=== PATIENT | female | born 1945 | race African-American/Black ===

== ENCOUNTER 2018-06-30 14:18 | Inpatient (IN) | payer MEDICARE ==
[2018-06-30] MEDS ORDERED: Aspirin 325 MG TAB ONE (15:18)
[2018-06-30] MEDS ORDERED: Nitroglycerin 2% Ointment 1 INCH/1 GM Packet ONE (15:18)
[2018-06-30 16:02] LABS: CKMB 1.7 ng/mL (0-6.6)
--- NOTE | 2018-06-30 17:17 | ULT ---
RENAL SONOGRAM: 06/30/2018 HISTORY: Renal failure. COMPARISON: 06/12/2015 FINDINGS: The right kidney measures 10.1 cm x 4.6 cm, with the left kidney measuring 9.9 cm x 5.8 cm. There is a small, hypoechoic area seen within the inferior pole, left kidney, which is suggested to b e internal echogenic material. This has the appearance most suggestive of a small cyst. This measur es approximately 2.3 cm. No additional renal mass, renal calculus, or hydronephrosis is seen in the kidneys bilaterally. The urinary bladder is incompletely distended but is normal in appearance. There is a small amount of free fluid seen superior to the level of the urinary bladder. IMPRESSION: 1. Left renal cyst. 2. No evidence of hydronephrosis. POS: JUSTICE
[2018-06-30] MEDS ORDERED: Ondansetron ODT 4 MG TAB SL PRN (18:32)
[2018-06-30] MEDS ORDERED: Acetaminophen 325 MG TAB PO PRN (18:32)
[2018-06-30] MEDS ORDERED: Ondansetron PF 4 MG/2 ML Vial IVP PRN (18:32)
[2018-06-30 18:35] LABS: Troponin I 0.036 ng/mL (< 0.028)
--- NOTE | 2018-06-30 19:07 | HP ---
CHIEF COMPLAINT: Shortness of breath. HISTORY OF PRESENT ILLNESS: The patient is a 72-year-old female, who presented by EMS to [facility] for increased shortness of breath, which is going on for several days. Apparently, she had some cough and she has been treated with antibiotics recently, but there was no any improvement. She denied any nausea, vomiting, or diarrhea. She had a lot of wheezing according to her and there was a lot of dyspnea on exertion even with walking. She denies any fever or chills. PAST MEDICAL HISTORY: Positive for; 1. Diastolic congestive heart failure with ejection fraction of 60% according to the documentation from 2017. 2. Asthma. 3. Chronic obstructive pulmonary disease. 4. Chronic bronchitis. 5. Hypothyroidism. 6. Osteoarthritis. 7. History of myocardial infarction. 8. AICD. 9. Diabetes mellitus. 10. Gastrointestinal disease in form of peptic ulcer disease. 11. Hyperlipidemia. 12. Hypertension. PAST SURGICAL HISTORY: 1. Cholecystectomy. 2. Hysterectomy. PSYCHIATRIC HISTORY: Positive for schizophrenia. SOCIAL HISTORY: She dips. She quit smoking 3 months ago. She used to smoke 1 pack per day for long time. She denies any alcohol intake, but we know that she is a former drug user, abused marijuana. ALLERGIES: NONE. MEDICATIONS: Please refer to the medications list. REVIEW OF SYSTEMS: CONSTITUTIONAL: Negative for fever or chills. EYES: Negative for eye pain and eye discharge. ENT: Negative for epistaxis and rhinorrhea. CARDIOVASCULAR: Negative for chest pain and palpitation. RESPIRATORY: Positive for cough and shortness of breath. GI: Negative for nausea and vomiting. : Negative for hematuria and dysuria. MUSCULOSKELETAL: Negative for leg swelling and arthralgias. SKIN: Negative for rash or erythema. NEUROLOGIC: Negative for dizziness and headaches. HEMOLYMPHATIC: Negative for easy bruising and clotting abnormalities. Positive for schizophrenia symptoms in the past. PHYSICAL EXAMINATION: VITAL SIGNS: Blood pressure is 135/51, pulse is 49, respiratory rate is 22, pain zero, and O2 saturations 97%. She is on BiPAP at time of this visit. HEENT: Her head is atraumatic and normocephalic. Pupils are responding to light properly. Oral mucosa was not examined since she has a BiPAP mask on. LUNGS: Breath sounds diminished at both bases with bilateral crackles at the bases. HEART: S1 and S2. Bradycardic. No S3. No S4. ABDOMEN: Soft, nontender, mildly distended, and obese. Bowel sounds are present. No organomegaly. EXTREMITIES: No clubbing, cyanosis, or edema. Pulses diminished on both tibialis posterior and dorsalis pedis arteries similar bilaterally. NEUROLOGIC: She is alert and oriented x3. There is no any motor deficits. LABORATORY DATA: Labs showed WBC 7.8, hemoglobin 7.9, hematocrit 26.9, platelet count 170,000, and neutrophils 75.6. Chemistry normal. Electrolytes; BUN 39, creatinine 2.84, and glucose 133. Troponin 0.041 and BNP 1587. The rest of chemistry within normal limits. Chest x-ray showed congestive heart failure, decompensated. X-ray of the ribs showed nondisplaced right-sided rib fracture without any pneumothorax. IMPRESSION: 1. Congestive heart failure. 2. Hypothyroidism. 3. Asthma. 4. Chronic obstructive pulmonary disease. 5. Chronic bronchitis. 6. History of myocardial infarction. 7. Automatic implantable cardioverter-defibrillator. 8. Diabetes mellitus type 2. 9. Gastroesophageal reflux disease. 10. History of peptic ulcer disease. 11. Hyperlipidemia. 12. Hypertension. PLAN: Plan is admission to [facility]. The patient is guarded. Activity bedrest and bathroom privileges. IV Hep-Lock. Lasix 40 mg IV push every a 12 hours. The patient received 80 mg in [facility]. Continue BiPAP. Cardiology consultation with Dr. Rizvi. The case was discussed with him. Continue her nitroglycerin paste, since her blood pressure was running on the high side when she got to the ER. She received 4 mg of morphine and 325 mg of aspirin in the emergency room at [facility] and we will continue nitroglycerin paste and we will continue morphine p.r.n. and we will do DVT prophylaxis with SCDs and Lovenox and as I mentioned above, Cardiology is consulted. Job ID: [id number]
[2018-06-30 21:41] LABS: Troponin I 0.038 ng/mL (< 0.028)
[2018-06-30] MEDS: Nitroglycerin 2% Ointment 1 INCH/1 GM Packet TOP SCH (21:54)
[2018-07-01 05:40] LABS: Anisocytosis SLIGHT = 6-15 cells (100X) (0-5/hpf); Band 3 % (5-11); Elliptocytes SLIGHT = 2-5 cells (100X) (0-1/hpf); Eosinophils 1 % (0-10); Hemoglobin 7.8 g/dL (12.0-16.0); Hypochromia SLIGHT = 6-15 cells (100X) (0-5/hpf); Lymphocytes 17 % (21-51); MDiff Complete? YES; Mean Corpuscular HGB CONC 29.9 g/dL (32.0-36.0); Mean Corpuscular Hemoglobin 25.5 pg (27.0-31.0); Mean Corpuscular Volume 85.5 fL (78.0-98.0); Mean Platelet Volume 11.1 fL (7.4-10.4); Metamyelocyte 1 % (0-0); Monocytes 8 % (0-10); Neutrophil 70 % (42-75); Nucleated RBC 1 % (0); Platelet Count 182 thou/uL (130-400); RBC Distribution Width 16.7 % (11.5-14.5); Red Blood Cell (RBC) Count 3.07 mill/uL (4.20-5.40); Schistocytes SLIGHT = 2-5 cells (100X) (0-1/hpf); Tear Drops SLIGHT = 2-5 cells (100X) (0-1/hpf); White Blood Cell (WBC) Count 7.6 thou/uL (4.8-10.8)
[2018-07-01 05:43] LABS: Anion Gap 15 mmol/L (10-20); BUN (Urea Nitrogen) 44 mg/dL (9.8-20.1); Calc. Creatinine Clearance 24 mL/min (70-130); Calcium 8.9 mg/dL (7.8-10.44); Carbon Dioxide 25 mmol/L (23-31); Chloride 105 mmol/L (98-107); Estimated GFR-MDRD 15; Glucose 105 mg/dL (80-115); Potassium 4.5 mmol/L (3.5-5.1); Sodium 140 mmol/L (136-145)
[2018-07-01] MEDS ORDERED: Furosemide 40 MG/4 ML VIAL SLOW IVP SCH (06:00)
[2018-07-01] MEDS: Nitroglycerin 2% Ointment 1 INCH/1 GM Packet TOP SCH ×3 (06:16→21:48)
[2018-07-01] MEDS ORDERED: hydrOXYzine 25 MG TAB PO PRN (08:46)
[2018-07-01] MEDS ORDERED: Dicyclomine 20 MG TAB PO PRN (08:46)
[2018-07-01] MEDS ORDERED: Prevnar 13-Val Conj/PF 0.5 ML SYRINGE IM ONE (09:00)
[2018-07-01] MEDS ORDERED: HYDRALAZINE HCL 100 MG PO SCH (09:00)
[2018-07-01] MEDS ORDERED: Non-Formulary Item 1 EACH (Ferrous Sulfate [Ferrous Sulfate] 325 MG) PO SCH (09:00)
[2018-07-01] MEDS ORDERED: Non-Formulary Item 1 EACH (Insulin Glargine,Hum.Rec.Anlog [Lantus Solostar] 10 UNIT) SQ SCH (09:00)
[2018-07-01] MEDS ORDERED: Non-Formulary Item 1 EACH (Levothyroxine Sodium [Levothyroxine Sodium] 200 MCG) PO SCH (09:00)
[2018-07-01] MEDS ORDERED: Non-Formulary Item 1 EACH (Ranitidine Hcl [Ranitidine Hcl] 150 MG) PO SCH (09:00)
[2018-07-01] MEDS ORDERED: Gabapentin 300 MG CAP PO SCH (09:00)
[2018-07-01] MEDS: Ferrous Sulfate 325 MG TAB PO SCH ×2 (10:04→21:46)
[2018-07-01] MEDS: hydrALAZINE 25 MG TAB PO SCH ×3 (10:04→21:47)
[2018-07-01] MEDS: Famotidine 20 MG TAB PO SCH (10:05)
[2018-07-01] MEDS ORDERED: Sodium Chloride 0.9% 1,000 ML IV SCH (10:15)
[2018-07-01] MEDS: Insulin Glargine 10 UNITS in Pre-Filled Syringe 1 EACH SC SCH (10:16)
[2018-07-01] MEDS ORDERED: Albumin 25% 25 GM/100 ML BOT IVPB ONE (11:00)
[2018-07-01] MEDS ORDERED: predniSONE 5 MG TAB PO SCH (12:00)
--- NOTE | 2018-07-01 13:42 | CON ---
DATE OF CONSULTATION: 07/01/2018 CONSULTING PHYSICIAN: Jett Fleming M.D. REASON FOR CONSULT: Acute kidney injury. HISTORY OF PRESENT ILLNESS: This is a 72-year-old -[place] female with a history of congestive heart failure, COPD, bronchitis, type 2 diabetes, hypertension, hyperlipidemia, CKD, came to the hospital with above complaints and being admitted. The patient does have a creatinine of around 1.4 with last blood work done on 04/06/2018 and on admission was found to be 2.8, this morning 3.6, which required the Nephrology consult. The patient is feeling better with breathing trouble, but her complaint is that she cannot make any urine. She does not have any leg swelling. The patient said that was she was not having good p.o. intake for few days before admission. She did not have any water at home, was not drinking enough, but in admission, she was found to have fluid overload with a chest x-ray showing fluid overload and elevated BNP and she was given Lasix and currently was on Lasix, but despite the high dose of 40 mg IV, she was not making any urine. Nephrology is currently consulted. She remains hypoxic at the hospital. No nausea, vomiting, diarrhea. Reported no fever, chills. PAST MEDICAL HISTORY: Positive for CHF, asthma, COPD, chronic bronchitis, hypothyroidism, osteoarthritis, , type 2 diabetes, GERD, hyperlipidemia, hypertension. PAST SURGICAL HISTORY: 1. Cholecystectomy. 2. Hysterectomy. 3. AICD placement. HOME MEDICATIONS: Include: 1. Prednisone. 2. Metformin. 3. Hydroxyzine. 4. Hydralazine. 5. Terazosin. 6. Zoloft. 7. Ranitidine. 8. Pravastatin. 9. Lopressor. 10. Levothyroxine. 11. Sublingual nitrate. 12. Lantus. 13. Gabapentin. 14. Lasix. 15. Ferrous sulfate. 16. Bentyl. 17. Norvasc. ALLERGIES: NO KNOWN DRUG ALLERGIES. SOCIAL HISTORY: No smoking, alcohol, or illicit drug abuse. FAMILY HISTORY: No history of any kidney disease. REVIEW OF SYSTEMS: CONSTITUTIONAL: Negative for weight loss or gain, ability to conduct usual activities. SKIN: Negative for rash, itching. EYES: Negative for double vision, pain. ENT/MOUTH: Negative for nose bleeding, neck stiffness, pain, tenderness. CARDIOVASCULAR: Negative for palpitations, dyspnea on exertion, orthopnea. RESPIRATORY: Negative for shortness of breath, wheezing, cough, hemoptysis, fever or night sweats. GASTROINTESTINAL: Negative for poor appetite, abdominal pain, heartburn, nausea, vomiting, constipation, or diarrhea. GENITOURINARY: Negative for urgency, frequency, dysuria, nocturia. MUSCULOSKELETAL: Negative for pain, swelling. NEUROLOGIC/PSYCHIATRIC: Negative for anxiety, depression. ALLERGY/IMMUNOLOGIC: Negative for skin rash, bleeding tendency. PHYSICAL EXAMINATION: GENERAL: This is a obese female, in no apparent distress. VITAL SIGNS: Temperature 98.6, pulse 60, respirations 18, blood pressure 139/50. HEENT: Atraumatic and normocephalic. Oral mucosa is moist. NECK: Supple. CVS: S1 and S2 heard. Regular rate and rhythm. RESPIRATORY: Clear. GASTROINTESTINAL: Abdomen is soft. MUSCULOSKELETAL: 1+ edema. DERMATOLOGIC: No skin rash. NEUROLOGIC: Alert and awake. PSYCHIATRIC: Mood and affect normal. LABORATORY DATA: Hemoglobin is 7.8 with MCV of 85.5%, platelets 182. Potassium 4.5, BUN is 44, creatinine is 3.6, troponin is 0.4. BNP was 1500. IMAGING: Chest x-ray with fluid overload. ASSESSMENT AND PLAN: Acute kidney injury, on chronic kidney disease, stage 3, most likely from cardiorenal syndrome. Currently patient looks little bit volume depleted. We will check an echocardiogram to evaluate the right heart function to make sure she is not volume dependent. Plan is to start on IV fluids at 50 mL an hour for a liter today and we will also give a dose of albumin. Agree with cardiology evaluation. We will check echocardiogram. We will hold Lasix for anemia, seems to be chronic. We will rule out iron deficiency. Iron levels ordered. We will also consider Epogen, if not iron deficient. Edema, controlled. Hypertension, currently on the lower side. The patient remains high risk for complications and we will continue close monitoring. Medications reviewed. We will reduce the dose 1 p.o. at bedtime. Continue other medications. Renally dose all the medications and rule out sepsis and we will follow. Job ID: [id number]
--- NOTE | 2018-07-01 15:44 | PRG ---
DATE OF SERVICE: 07/01/2018 SUBJECTIVE: The patient says that she needs to go to the bathroom as I walked into the room, but according to the nurse, she did not make much urine overnight even after the dose of 80 mg of Lasix. OBJECTIVE: VITAL SIGNS: Blood pressure is 158/63, pulse is 67, respiratory rate is 22, and O2 saturation is 90. HEENT: Her head is atraumatic and normocephalic. Eyes are PERRLA. Sclerae are nonicteric. Oral mucosa is moist. NECK: JVD positive. LUNGS: Breath sounds significantly diminished at both bases with crackles bilaterally at both bases. No wheezing. HEART: S1, S2, somewhat irregular. No S3. No S4. ABDOMEN: Soft, nontender, obese. EXTREMITIES: No clubbing, cyanosis, or edema. NEUROLOGIC: She follows my commands. She moves her all 4 extremities. LABORATORY DATA: Labs showed white count of 7.6, hemoglobin 7.8, hematocrit 26.3, platelet count is 182,000. Chemistry; normal electrolytes, BUN 44, creatinine 3.67. Three sets of troponins; 0.049, 0.036 and 0.038. Glycemia is ranging from 108 to 139. Microbiology; none. Ultrasound of the kidneys showed left renal cyst, but no evidence of hydronephrosis. IMPRESSION: 1. Congestive heart failure, acute on chronic. 2. Hypothyroidism. 3. Respiratory failure secondary to #1 with hypoxemia. 4. History of asthma. 5. Chronic obstructive pulmonary disease. 6. Chronic bronchitis. 7. History of myocardial infarction. 8. Automatic implantable cardioverter-defibrillator in place. 9. Diabetes mellitus type 2. 10. Gastroesophageal reflux disease. 11. History of peptic ulcer disease. 12. Hyperlipidemia. 13. Hypertension. PLAN: The patient did not have much urine output even after 80 mg of Lasix IV push. She is on 40 of Lasix every 12 hours scheduled. Power Saw Operator wants to gently hydrate her and see whether her kidney function can get any better. Her creatinine jumped to over 3 overnight. Cardiology is consulted and Pulmonary/product development specialist is going to see her too. For now, we will continue her current regimen. Job ID: [id number]
[2018-07-01] MEDS ORDERED: Pravastatin Sodium 40 MG TAB PO SCH (21:00)
[2018-07-01] MEDS ORDERED: Non-Formulary Item 1 EACH (Terazosin Hcl [Terazosin Hcl] 2 MG) PO SCH (21:00)
[2018-07-01 21:08] LABS: Bilirubin Small (Negative); Blood, Urine Negative (Negative); Clarity CLOUDY (Clear); Glucose, Urine (Dipstick) Negative (Negative); Leukocyte Trace (Negative); Nitrite Negative (Negative); Protein, Urine (Dipstick) 100 mg/dL (Neg-Trace); Specific Gravity, Urine 1.018 (1.002-1.036)
[2018-07-01 21:09] LABS: Bacteria/HPF Rare-Few HPF (None Seen); Pathc Cast-AUWi Flag 1.08 (0-2.49); RBC/HPF 0-3 HPF (0-3)
[2018-07-01 21:10] LABS: Yeast-AUWi Flag 59.3 (0-25.0)
[2018-07-01 21:40] LABS: Troponin I 0.025 ng/mL (< 0.028)
[2018-07-01] MEDS: Gabapentin 300 MG CAP PO SCH (21:46)
[2018-07-01] MEDS: Terazosin HCl 1 MG CAP PO SCH (21:47)
[2018-07-01] MEDS: Atorvastatin Calcium 10 MG TAB PO SCH (21:47)
[2018-07-01] MEDS ORDERED: Ondansetron PF 4 MG/2 ML Vial IVP PRN (23:44)
--- NOTE | 2018-07-02 01:08 | CON ---
DATE OF CONSULTATION: HISTORY OF PRESENT ILLNESS: Neli Rothman is a 72-year-old Black female, that I have followed intermittently over the years. She was first seen in 08/1999. At that time, she presented to emergency room in [place], complaining of back discomfort. She was placed on various antiinflammatory muscle relaxing medications and pain improved. She also stated that she was short of breath, somewhat pleuritic chest pain. She also had a fall with possible syncope. She was then sent here and underwent a left heart catheterization. Ejection fraction of 60% to 65%. She had normal coronary arteries. I did not see her again until November 2007, when she was hospitalized with an episode of falling to the ground. It was unclear if she had true syncope. She denied any shortness of breath or chest discomfort. She had no arrhythmias while hospitalized. Apparently, an outpatient monitor by Dr. Larson revealed nonsustained supraventricular tachycardia at a rate of 138 per minute, lasting 6 beats. I revealed implantable loop recorder was placed during that admission. No significant arrhythmias, however, were ever seen on the device. She also underwent repeat catheterization during that admission in 2007. Coronary arteries were normal and ejection fraction of 60% to 65%. She has had several admissions for diastolic heart failure. She very rarely is ever seen in the office. She now is admitted with increased shortness of breath after going to the [place] [facility]. She has some cough but no fever. She denied any chest discomfort. PAST MEDICAL HISTORY: Hypertension, diabetes, hypothyroidism, anxiety, arthritis, hyperlipidemia, peptic ulcer disease, depression, diverticulosis, anemia, and bipolar disorder. CURRENT MEDICATIONS: 1. Prednisone 5 mg daily. 2. Amlodipine 10 mg daily. 3. Bentyl 20 mg q.i.d. p.r.n. 4. Ferrous sulfate 325 b.i.d. 5. Lasix 40 b.i.d. 6. Gabapentin 300 mg t.i.d. 7. Hydralazine 100 mg t.i.d. 8. . 9. Metformin 1000 mg b.i.d. 10. Metoprolol 25 mg b.i.d. 11. Pravastatin 40 at bedtime. 12. Ranitidine 150 b.i.d. 13. Zoloft 150 daily. 14. Terazosin 2 mg at bedtime. ALLERGIES: NONE. SOCIAL HISTORY: She smoked 1 pack per day, but stopped in 2016. She does not drink. FAMILY HISTORY: Negative for coronary artery disease. REVIEW OF SYSTEMS: Unremarkable except as noted above. PHYSICAL EXAMINATION: VITAL SIGNS: Blood pressure 144/42 and pulse of 57. HEENT: PERRL. NECK: Supple. CHEST: Reveals crackles at the bases. CARDIOVASCULAR: S1 and S2 normal without any S3, S4, or murmurs. ABDOMEN: Obese. Normal bowel sounds. No tenderness. EXTREMITIES: Revealed 1+ pretibial edema. NEUROLOGICAL: Grossly intact. SKIN: Warm and dry. LABORATORY DATA: Chest x-ray reveals cardiomegaly, increased pulmonary vascularity with findings suggesting decompensated congestive heart failure. EKG reveals sinus bradycardia with rate of 49 per minute, possible anterior infarct, and nonspecific T-wave changes. Hemoglobin 7.8, hematocrit 26.3, white count 7600, and platelets 182,000. Sodium of 140, potassium 4.5, chloride 105, carbon dioxide 25, BUN 44 , and creatinine is 3.67. Troponin I 0.049. IMPRESSION: 1. Acute on chronic diastolic heart failure. 2. Acute kidney injury on chronic kidney disease. 3. Former smoker. 4. Hypertension. 5. Diabetes. 6. Hypercholesterolemia. 7. Anxiety. 8. History of restrictive lung disease. 9. Bipolar affective disorder. PLAN: Ms. Rothman will be diuresed. She has had normal coronary arteries with catheterization in the past and normal left ventricular function on echos. Echocardiogram has been ordered but not performed yet. Job ID: [id number] MTDD
[2018-07-02 05:40] LABS: Iron 25 ug/dL (50-170); Iron Binding Capacity, Total 284 mcg/dL (265-497)
[2018-07-02 05:42] LABS: Calcium 8.8 mg/dL (7.8-10.44); Chloride 103 mmol/L (98-107); Potassium 4.6 mmol/L (3.5-5.1); Sodium 134 mmol/L (136-145)
[2018-07-02 05:51] LABS: BUN (Urea Nitrogen) 46 mg/dL (9.8-20.1); Calc. Creatinine Clearance 22 mL/min (70-130); Carbon Dioxide 17 mmol/L (23-31); Estimated GFR-MDRD 13; Glucose 171 mg/dL (80-115)
[2018-07-02 05:52] LABS: Anion Gap 19 mmol/L (10-20)
[2018-07-02] MEDS: Nitroglycerin 2% Ointment 1 INCH/1 GM Packet TOP SCH ×3 (06:25→22:24)
[2018-07-02] MEDS: Levothyroxine Sodium 100 MCG TAB PO SCH (06:25)
--- NOTE | 2018-07-02 08:59 | PRG ---
DATE OF SERVICE: 07/02/2018 SUBJECTIVE: The patient is seen and examined at the bedside. She finally started making some urine after she was given IV fluids yesterday per Nephrology. OBJECTIVE: VITAL SIGNS: Blood pressure is 160/50, pulse is 62, respiratory rate is 16, O2 saturation is 92%. HEENT: Her conjunctivae is palish. Oral mucosa is moist. NECK: Supple. LUNGS: Breath sounds diminished at both bases with dullness on percussion on both lower lobes. HEART: S1, S2. The patient is showing bigeminy since yesterday. ABDOMEN: Soft, nontender, nondistended. Bowel sounds are present. No organomegaly. EXTREMITIES: 1+ peripheral edema similar bilaterally on the lower extremities. NEUROLOGICAL: She is alert and oriented. She is able to move her all 4 extremities. There is no any motor deficits. LABORATORY DATA: Sodium of 134, potassium 4.6, chloride 103, CO2 17, BUN 46, creatinine 3.98, glycemia is ranging from 139-191. Iron 25, total iron-binding capacity 284, ferritin 44.24. Troponin I 0.025. IMPRESSION: 1. Congestive heart failure, [id number]. Apparently, she had normal ejection fraction according to the previous echos per Cardiology information. 2. [id number] renal failure. 3. Hypothyroidism. 4. Respiratory failure secondary to congestive heart failure with hypoxemia. 5. History of asthma. 6. Chronic obstructive pulmonary disease. 7. Chronic bronchitis. 8. History of myocardial infarction. 9. Automatic implantable cardioverter-defibrillator in place. 10. Diabetes mellitus type 2. 11. Gastroesophageal reflux disease. 12. History of peptic ulcer disease. 13. Hyperlipidemia. 14. Hypertension. DISCUSSION: 1. The patient received some IV fluids yesterday and albumins. Her urine output has improved. Finally, urology on board. Her Lasix was held. Bradycardia with bigeminies. Apparently pacemaker is not well functioning. Cardiology is aware and Dr. Quintanilla is going to address this issue this morning. 2. chronic disease likely related to her renal failure. 3. Diabetes. She is on 10 units of long-acting insulin plus sliding scale a.c. and at bedtime and her glycemia is ranging from 108-191 and we will going to keep her on the same regimen for now. 4. We will obtain CBC this morning, make sure that her hemoglobin does not drop any further, and we will check her CBC and BMP tomorrow morning. Job ID: [id number]
[2018-07-02] MEDS: Ferrous Sulfate 325 MG TAB PO SCH ×3 (09:36→19:34)
[2018-07-02] MEDS: Famotidine 20 MG TAB PO SCH ×2 (09:37→13:54)
[2018-07-02] MEDS: hydrALAZINE 25 MG TAB PO SCH ×5 (09:42→19:34)
[2018-07-02 10:39] LABS: Actual Bicarbonate (HCO3a) 25.4 mEq/L (22-28); Base Excess (BEa) -4.6 mEq/L (-2.0 to +3.0); Calcium, Ionized 1.19 mmol/L (1.12-1.30); Carboxyhemoglobin (COHb) 1.6 gm% (0.0-3.0); Hemoglobin (Hb) 8.7 g/dL (12.0-16.0)
[2018-07-02] MEDS ORDERED: Heparin 1,000 UNITS/ML VIAL ONE (11:11)
[2018-07-02 11:21] LABS: pH, Arterial 7.11 (7.35-7.45)
[2018-07-02 11:22] LABS: CO2 Tension 82.4 mmHg (35.0-45.0); O2 Tension (PaO2) 56.6 mmHg (> 70.0); Puncture Site RBA
[2018-07-02 11:27] LABS: #Lymphocytes 0.8 thou/uL (1.20-3.40); #Monocytes 0.6 thou/uL (0.11-0.59); #Neutrophils 6.5 thou/uL (1.40-6.50); %Eosinophils 0.3 % (0.0-10.0); %Lymphocytes 10.5 % (21.0-51.0); %Monocytes 7.3 % (0.0-10.0); %Neutrophils 81.9 % (42.0-75.0); Anisocytosis SLIGHT = 6-15 cells (100X) (0-5/hpf); Hypochromia SLIGHT = 6-15 cells (100X) (0-5/hpf); MDiff Complete? YES; Mean Corpuscular HGB CONC 29.4 g/dL (32.0-36.0); Mean Corpuscular Hemoglobin 25.5 pg (27.0-31.0); Mean Corpuscular Volume 86.5 fL (78.0-98.0); Mean Platelet Volume 9.5 fL (7.4-10.4); Ovalocytes SLIGHT = 2-5 cells (100X) (0-1/hpf); Platelet Count 181 thou/uL (130-400); Poikilocytosis MODERATE=16-30 cells (100X) (0-5/hpf); RBC Distribution Width 16.7 % (11.5-14.5); Red Blood Cell (RBC) Count 3.14 mill/uL (4.20-5.40); Tear Drops SLIGHT = 2-5 cells (100X) (0-1/hpf)
[2018-07-02] MEDS ORDERED: Bacteriostatic Water 30 ML VIAL FS PRN (11:36)
[2018-07-02] MEDS ORDERED: methylPREDNISolone Sod Succ 40 MG VIAL IVP SCH ×2 (12:00→23:00)
--- NOTE | 2018-07-02 12:00 | PRG ---
DATE OF SERVICE: 07/02/2018 SUBJECTIVE: The patient was seen and examined in ICU. The patient remains with altered mentation. Unable to give good history. OBJECTIVE: GENERAL: This is a well-built female with confusion. VITAL SIGNS: Temperature 97.7, pulse 54, respiratory rate 18, blood pressure 141/47. HEENT: Atraumatic, normocephalic, on BiPAP. CARDIOVASCULAR: S1, S2 heard. RESPIRATORY: Clear. GASTROINTESTINAL: Abdomen is soft. MUSCULOSKELETAL: 1+ edema. DERMATOLOGIC: No skin rash. NEUROLOGIC: Confused. LABORATORY DATA: Hemoglobin 7.8, potassium 4.6, BUN 46, creatinine 3.9. ASSESSMENT: 1. Acute kidney injury on chronic kidney disease stage 4 with worsening acidosis and altered mentation and uremia with oligoanuria. Plan is to start on dialysis. I did talk with the family and the family is agreeable. The patient is confused, not able to give the consent. We will consult Surgery for placement, and we will start on dialysis as tolerated. 2. Cardiorenal syndrome. Followup with Cardiology. Followup echocardiogram. 3. Edema. We will remove fluid with dialysis as tolerated. 4. Hypertension. 5. Altered mentation. 6. Respiratory acidosis. PROGNOSIS: Guarded. PLAN: Plan is to start dialysis if tolerated. The patient is agreeable. Consult Surgery for placement of a dialysis catheter. Job ID: [id number]
--- NOTE | 2018-07-02 12:05 | CON ---
DATE OF CONSULTATION: 07/02/2018 SERVICE: Pulmonary Medicine. REASON FOR CONSULTATION: Respiratory failure. HISTORY OF PRESENT ILLNESS: The patient is a 72-year-old female with past medical history significant for heart failure. She presented to the hospital with decreasing p.o. intake, nausea, and anuria. She had increasing shortness of breath as well. Overnight, she had significant decline in mentation. She previously denied any abdominal pain, vomiting, or diarrhea. She feels constipated actually. She has no hot, red, swollen joints or arthralgias. She has been having a cough and bringing up white phlegm. There has been nothing with color to it. She denies having any chest pains or palpitations. Otherwise, she simply could not breathe well. PAST MEDICAL HISTORY: 1. Chronic diastolic heart failure. 2. Asthma. 3. COPD. 4. Hypothyroidism. 5. Osteoarthritis. 6. Type 2 diabetes mellitus. 7. History of peptic ulcer disease. 8. Dyslipidemia. 9. Hypertension. PAST SURGICAL HISTORY: 1. Cholecystectomy. 2. Hysterectomy. FAMILY HISTORY: Noncontributory. SOCIAL HISTORY: She uses dip. She quit smoking roughly 3 months ago, but prior to that, had a greater than a [id number] history of smoking. Denies any alcohol or illicit drug use. She has no exposure to chemicals, dust, asbestos, or tuberculosis. ALLERGIES: NO KNOWN DRUG ALLERGIES. MEDICATIONS: List of her inpatient medications was reviewed. Multiple updates were made. REVIEW OF SYSTEMS: General, head, ears, eyes, nose, throat, cardiovascular, respiratory, GI, , musculoskeletal, neurologic, and skin are negative except as mentioned in the HPI. PHYSICAL EXAMINATION: VITAL SIGNS: Afebrile, pulse 57, blood pressure 141/47, respirations 19, and saturation 85% on 30% FiO2 and now PEEP of 8. GENERAL: She is somnolent. HEENT: Normocephalic and atraumatic. Sclerae white. Conjunctivae pink. Oral mucosa is moist without lesions. LUNGS: Crackles and prolonged expiratory phase with wheezing are both noted. There are some rhonchi present. HEART: Bradycardic, irregular. ABDOMEN: Soft, nontender, and nondistended. Bowel sounds are positive. MUSCULOSKELETAL: No cyanosis or clubbing. There is no pitting in the bilateral lower extremities. NEUROLOGIC: Grossly nonfocal. LABORATORY DATA: WBC 7.6, hemoglobin 7.8, platelets 181,000, neutrophil count is 70% on top of 3% bands. Creatinine 3.98, which is gently up-trending, glucose 171, and BUN 46. Iron is low, TIBC is normal. Percent saturation and ferritin are both low. Urinalysis is essentially unremarkable. IMAGING DATA: 1. Renal ultrasound demonstrates no evidence of hydronephrosis. Left renal cyst is incidentally discovered. 2. Chest x-ray demonstrates findings consistent with decompensated heart failure. There are significant volume overload, cephalization, and bilateral blunting of the costophrenic angles. ASSESSMENT: 1. Acute hypoxic and hypercapnic respiratory failure. 2. Chronic obstructive pulmonary disease with acute exacerbation. 3. Bradyarrhythmia. 4. Acute kidney injury. DISCUSSION AND PLAN: We will continue some nebulized medications and steroids. I do believe that most of this is a heart related issue. We will put her on BiPAP. I stood at bedside and escalated the pressures, so that we could maintain good ventilation. We will have Cardiology swing back around and see whether or not this bradyarrhythmia is likely contributing to her low cardiac output state and lack of ability for us to get fluid off her. Pulmonary/Critical Care will continue to follow along. Critical care time: 30 minutes. Job ID: [id number] MTDDillon
[2018-07-02] MEDS: Insulin Glargine 10 UNITS in Pre-Filled Syringe 1 EACH SC SCH (13:55)
--- NOTE | 2018-07-02 14:59 | EKG ---
Test Reason : STAT Blood Pressure : / mmHG Vent. Rate : 056 BPM Atrial Rate : 056 BPM P-R Int : 146 ms QRS Dur : 080 ms QT Int : 472 ms P-R-T Axes : 034 017 096 degrees QTc Int : 455 ms Sinus bradycardia Possible Anterior infarct (cited on or before 08-JUN-2015) Abnormal ECG Confirmed by NINFA CABAN ([id number]) on 07/02/2018 2:59:07 PM Referred By: KAT Confirmed By:NINFA CABAN
[2018-07-02 15:11] LABS: HBSAg Index 0.21 S/CO (0-0.99); Hep B Surf Ag Non-Reactive S/CO (NonReactive)
[2018-07-02] MEDS ORDERED: Albumin 25% 25 GM/100 ML BOT IVPB SCH (15:15)
[2018-07-02] MEDS ORDERED: Midazolam HCl 2 mg/2 ml Vial ONE (15:20)
[2018-07-02 15:22] LABS: HBSAB Concentration 115.63 mIU/mL; Hep B Surf AB Reactive (NonReactive)
[2018-07-02] MEDS ORDERED: Propofol 1,000 MG/100 ML VIAL IV ONE (15:34)
[2018-07-02] MEDS ORDERED: Lorazepam 2 MG/ML VIAL ONE (16:43)
[2018-07-02] MEDS: cefTRIAXone\\ROCEPHIN 1 GM in Sodium Chloride 0.9% 100 ML IVPB SCH (17:13)
[2018-07-02 17:19] LABS: Actual Bicarbonate (HCO3a) 27.8 mEq/L (22-28); Base Excess (BEa) 0.8 mEq/L (-2.0 to +3.0); CO2 Tension 58.1 mmHg (35.0-45.0); Calcium, Ionized 1.13 mmol/L (1.12-1.30); Carboxyhemoglobin (COHb) 1.2 gm% (0.0-3.0); Hemoglobin (Hb) 8.5 g/dL (12.0-16.0); Potassium - ABG Lab 3.79 mmol/L (3.70-5.30)
[2018-07-02 17:20] LABS: ALV-art Gradient 303.675 (0-20); O2 Tension (PaO2) 51.5 mmHg (> 70.0)
[2018-07-02 17:21] LABS: Puncture Site RRA
[2018-07-02 17:24] LABS: Base Excess (BEa) -1.7 mEq/L (-2.0 to +3.0); Calcium, Ionized 1.19 mmol/L (1.12-1.30); Carboxyhemoglobin (COHb) 1.2 gm% (0.0-3.0); Hemoglobin (Hb) 8.8 g/dL (12.0-16.0); Potassium - ABG Lab 3.75 mmol/L (3.70-5.30)
[2018-07-02 17:25] LABS: CO2 Tension 82.5 mmHg (35.0-45.0); O2 Tension (PaO2) 59.6 mmHg (> 70.0); pH, Arterial 7.15 (7.35-7.45)
[2018-07-02 17:26] LABS: ALV-art Gradient 550.275 (0-20); Puncture Site RRA
--- NOTE | 2018-07-02 17:43 | OP ---
DATE OF PROCEDURE: 07/02/2018 PREOPERATIVE DIAGNOSES: 1. Acute renal failure. 2. Acute congestive heart failure secondary to hypovolemia. POSTOPERATIVE DIAGNOSES: 1. Acute renal failure. 2. Acute congestive heart failure secondary to hypovolemia. PROCEDURE PERFORMED: Placement of right femoral venous Trialysis catheter for dialysis. INDICATION FOR PROCEDURE: A 72-year-old woman, admitted with acute renal failure and this was complicated by acute congestive heart failure. I have been asked to place a temporary dialysis access for emergent dialysis. DESCRIPTION OF PROCEDURE: Informed consent obtained from the patient's family presented. The patient was placed in supine position. Right groin sterilely prepped and draped in usual fashion. The right femoral artery was palpated. Skin medial to this was anesthetized with 1% lidocaine. The right femoral vein was then cannulated with an 18-gauge introducer needle returning dark venous blood. Guidewire was passed through the needle and advanced into the right femoral vein without resistance. The needle was withdrawn over the guidewire. A stab incision was made adjacent to the guidewire using 11 scalpel. Dilator was passed over the guidewire and dilating the subcutaneous tissues. The dilator was removed and a triple-lumen Trialysis catheter was then advanced over the guidewire and placed in the right femoral vein without resistance down to hop. The guidewire was removed. Dark venous blood was aspirated from all three ports, which were individually flushed with saline followed by heparin. The catheter was secured to anterior groin using 3-0 nylon suture at two points. Sterile dressing was then applied. The patient tolerated this procedure without any apparent complications and remains in critical, but stable condition. Job ID: [id number]
[2018-07-02] MEDS ORDERED: Amlodipine 5 MG TAB PO SCH (18:30)
[2018-07-02] MEDS: niCARdipine HCl 25 MG in Sodium Chloride 0.9% 250 ML 240 ML IVPB SCH ×2 (18:45→20:57)
[2018-07-02] MEDS ORDERED: Lorazepam 2 MG/ML VIAL SLOW IVP PRN (18:55)
[2018-07-02] MEDS ORDERED: fentaNYL Citrate/PF 2,000 MCG in Sodium Chloride 0.9% 60 ML IV SCH (18:55)
[2018-07-02] MEDS ORDERED: Propofol BOLUS 1,000 MG/100 ML VIAL IV PRN (18:55)
[2018-07-02] MEDS ORDERED: Fentanyl BOLUS 250 ML IVPB PRN (18:55)
[2018-07-02] MEDS ORDERED: DISCONTINUE PREVIOUS NARCOTIC PAIN MEDICATIONS AND BENZODIAZEPINES FS SCH (18:55)
[2018-07-02] MEDS: Morphine 2 MG/ML SYRINGE SLOW IVP PRN (19:33)
[2018-07-02] MEDS: Gabapentin 300 MG CAP PO SCH (19:34)
[2018-07-02] MEDS: Propofol 1,000 MG/100 ML VIAL IV PRN (19:51)
[2018-07-02] MEDS: Terazosin HCl 1 MG CAP PO SCH (19:53)
[2018-07-02] MEDS: Atorvastatin Calcium 10 MG TAB PO SCH (19:54)
[2018-07-02] MEDS: Amlodipine 5 MG TAB PO SCH (19:54)
[2018-07-02] MEDS ORDERED: niCARdipine HCl 50 MG in Sodium Chloride 0.9% 250 ML 250 ML IVPB SCH (21:45)
[2018-07-02] MEDS ORDERED: niCARdipine HCl 50 MG in Sodium Chloride 0.9% 250 ML 230 ML IVPB SCH (21:45)
[2018-07-02] MEDS ORDERED: Carvedilol 6.25 MG TAB PER TUBE SCH (22:00)
[2018-07-02] MEDS: hydrALAZINE 20 MG/ML VIAL SLOW IVP PRN (22:24)
[2018-07-03] MEDS ORDERED: Acetaminophen 650 MG/20.3 ML UDCUP PO PRN (00:47)
[2018-07-03] MEDS ORDERED: Dextrose 5% in Water 1,000 ML IV PRN (00:51)
[2018-07-03] MEDS ORDERED: Insulin Regular 300 UNITS/3 ML VIAL SC PRN (00:51)
[2018-07-03] MEDS ORDERED: Dextrose 50% Abboject 50 ML SYRINGE IVP PRN (00:51)
[2018-07-03] MEDS ORDERED: Vancomycin HCl 1 GM in Premix Bag 1 BAG IVPB SCH (01:00)
[2018-07-03] MEDS: Piperacillin/Tazobactam 2.25 GM in Sodium Chloride 0.9% 100 ML IVPB SCH ×3 (02:11→18:33)
[2018-07-03] MEDS: hydrALAZINE 20 MG/ML VIAL SLOW IVP PRN ×2 (02:13→06:24)
[2018-07-03] MEDS: Morphine 2 MG/ML SYRINGE SLOW IVP PRN (02:17)
[2018-07-03 05:53] LABS: #Lymphocytes 0.4 thou/uL (1.20-3.40); #Monocytes 0.3 thou/uL (0.11-0.59); %Basophils 0.2 % (0.0-1.0); %Eosinophils 0.1 % (0.0-10.0); %Lymphocytes 3.7 % (21.0-51.0); %Monocytes 3.1 % (0.0-10.0); %Neutrophils 92.9 % (42.0-75.0); Mean Corpuscular HGB CONC 29.6 g/dL (32.0-36.0); Mean Corpuscular Hemoglobin 25.7 pg (27.0-31.0); Mean Corpuscular Volume 86.6 fL (78.0-98.0); Mean Platelet Volume 10.5 fL (7.4-10.4); Platelet Count 142 thou/uL (130-400); RBC Distribution Width 16.7 % (11.5-14.5); Red Blood Cell (RBC) Count 2.73 mill/uL (4.20-5.40); White Blood Cell (WBC) Count 10.8 thou/uL (4.8-10.8)
[2018-07-03 06:14] LABS: Anion Gap 13 mmol/L (10-20); BUN (Urea Nitrogen) 35 mg/dL (9.8-20.1); Calc. Creatinine Clearance 28 mL/min (70-130); Calcium 8.5 mg/dL (7.8-10.44); Carbon Dioxide 23 mmol/L (23-31); Chloride 103 mmol/L (98-107); Estimated GFR-MDRD 17; Glucose 138 mg/dL (80-115); Sodium 135 mmol/L (136-145)
[2018-07-03] MEDS: Levothyroxine Sodium 100 MCG TAB PO SCH (06:22)
[2018-07-03] MEDS: Nitroglycerin 2% Ointment 1 INCH/1 GM Packet TOP SCH ×3 (06:22→21:11)
[2018-07-03 07:02] LABS: Actual Bicarbonate (HCO3a) 24.7 mEq/L (22-28); Base Excess (BEa) 2.4 mEq/L (-2.0 to +3.0); CO2 Tension 28.7 mmHg (35.0-45.0); Calcium, Ionized 1.08 mmol/L (1.12-1.30); Carboxyhemoglobin (COHb) 1.3 gm% (0.0-3.0); Hemoglobin (Hb) 7.9 g/dL (12.0-16.0)
[2018-07-03 07:03] LABS: ALV-art Gradient 263.525 (0-20); O2 Tension (PaO2) 57.1 mmHg (> 70.0); Puncture Site RRA; pH, Arterial 7.55 (7.35-7.45)
--- NOTE | 2018-07-03 08:51 | PDOC.CTH ---
Cardiology Progress Note - Subjective intubated - Objective Vital Signs Temp Pulse Resp BP Pulse Ox 07/03/18 06:41 56 L 152/56 H 07/03/18 06:24 56 L 167/65 H 07/03/18 06:00 20 07/03/18 04:00 99.5 F 20 07/03/18 02:13 61 166/56 H 07/03/18 02:00 20 07/03/18 00:00 101.0 F H 20 07/02/18 23:22 63 20 100 07/02/18 22:25 162/46 H 07/02/18 22:24 68 162/46 H 07/02/18 22:00 20 Admit Weight 108 lb 4.8 oz Weight 238 lb 1.588 oz 07/02/18 07/03/18 07/04/18 06:59 06:59 07:59 Intake Total 1994 1523 Output Total 200 0 Balance 1795 1523 - Physical Examination General/Neuro: NAD Neck: no JVD present Lungs: unlabored respirations Heart: RRR Abdomen: no HSM, NT/ND Extremities: + femoral B - Labs Result Diagrams: 07/03/18 05:08 07/03/18 05:08 Troponin/CKMB CK-MB (CK-2) 1.7 ng/mL (0-6.6) 06/30/18 15:08 Troponin I 0.025 ng/mL (< 0.028) 07/01/18 20:57 - Assessment/Plan Acute on chronic diastolic heart failure anemia ESRD DM Restrictive lung disease Anxiety Initial plan prior to dialysis was diuresis fordiastolic dysfunction; given recent events, will need to be dialysed for removal of fluids On coreg, norvasc No other recommendations Will follow from a distance. Please call with questions
[2018-07-03] MEDS: Amlodipine 5 MG TAB PO SCH ×2 (09:03→21:11)
[2018-07-03] MEDS: hydrALAZINE 25 MG TAB PO SCH ×3 (09:04→21:12)
[2018-07-03] MEDS: Ferrous Sulfate 325 MG TAB PO SCH ×2 (09:04→21:12)
[2018-07-03] MEDS: Insulin Glargine 10 UNITS in Pre-Filled Syringe 1 EACH SC SCH (09:05)
[2018-07-03] MEDS: Famotidine 20 MG TAB PO SCH (09:05)
--- NOTE | 2018-07-03 09:07 | RAD ---
SINGLE VIEW OF THE CHEST: COMPARISON: 06/07/2016. HISTORY: Ventilated patient with respiratory failure. FINDINGS: A single view of the chest shows a normal-size cardiomediastinal silhouette. A cardiac monitoring de vice projects over the chest wall. An endotracheal tube is seen with its tip between the clavicles. There are bilateral veil-like opacities which likely represent small bilateral pleural effusions. IMPRESSION: Bilateral pleural effusions POS: [facility]
[2018-07-03] MEDS: Carvedilol 6.25 MG TAB PER TUBE SCH ×2 (09:09→21:12)
--- NOTE | 2018-07-03 09:42 | PRG ---
DATE OF SERVICE: 07/03/2018 SUBJECTIVE: The patient was seen and examined in the ICU. Remains intubated. OBJECTIVE: GENERAL: This is an obese female seen in the ICU intubated. VITAL SIGNS: Temperature 99.5, pulse 56, respiratory rate 20, blood pressure 144/49. HEENT: Intubated. CVS: S1 and S2 heard. RESPIRATORY: Clear. GI: Abdomen is soft. MUSCULOSKELETAL: 1+ edema. DERMATOLOGIC: No skin rash. NEUROLOGIC: Intubated. LABORATORY DATA: Potassium is 4.0, BUN is 35, creatinine is 3.1. ASSESSMENT AND PLAN: 1. Acute kidney injury on chronic kidney disease stage 4. Renal function with improvement with dialysis yesterday. The patient remains fluid overloaded. Plan is to have ultrafiltration earlier today as tolerated. 2. Cardiorenal syndrome. 3. Edema. Remove fluid. 4. Hypertension, stable on Cardene drip. 5. Altered mentation, currently intubated. 6. Acute hypoxic respiratory failure. 7. Respiratory acidosis, per primary team and ICU team. 8. We will continue to follow. Job ID: [id number]
--- NOTE | 2018-07-03 09:54 | PRG ---
DATE OF SERVICE: 07/03/2018 SUBJECTIVE: Neli Rothman is a morbidly obese female, intubated on the vent, sedated. Opens her eyes. X-ray shows bilateral pleural effusion. OBJECTIVE: VITAL SIGNS: Blood pressure 134/45, pulse 56, respiratory rate 18, and sats 99%. GENERAL: She is going to be dialyzed today. CHEST: Bilateral rhonchi. CARDIAC: Normal S1 and S2. No gallops. ABDOMEN: No masses. LABORATORY DATA: White count 10,000, H and H of 7 and 23, and platelet count 42. PO2 is 57, pCO2 20, pH 7.75, creatinine 3.1. IMPRESSION: 1. Respiratory failure. 2. Morbid obesity. 3. Congestive heart failure. 4. Probably sleep apnea. PLAN: She is not weanable at this stage. We will continue PT, nutrition. Wean when stable. One-half hour of critical care time. Job ID: [id number]
[2018-07-03] MEDS: methylPREDNISolone Sod Succ 40 MG VIAL IVP SCH (10:34)
[2018-07-03] MEDS ORDERED: Heparin 1,000 UNITS/ML VIAL ONE (11:11)
--- NOTE | 2018-07-03 12:17 | PDOC.PN ---
- Subjective Encounter Start Date: 07/03/18 Encounter Start Time: 12:15 Subjective: Still intubated - Objective Resuscitation Status - Order Detail: 06/30/18 15:49 Resuscitation Status Routine Resuscitation Status: FULL: Full Resuscitation Vital Signs & Weight: Vital Signs (12 hours) Temp Pulse Resp BP 07/03/18 10:45 56 L 166/90 H 07/03/18 09:09 135/45 L 07/03/18 09:04 56 L 132/45 L 07/03/18 09:03 56 L 132/45 L 07/03/18 06:41 56 L 152/56 H 07/03/18 06:24 56 L 167/65 H 07/03/18 06:00 20 07/03/18 04:00 99.5 F 20 07/03/18 02:13 61 166/56 H 07/03/18 02:00 20 Weight Admit Weight 108 lb 4.8 oz Weight 238 lb 1.588 oz Most Recent Monitor Data Heart Rate from ECG 57 NIBP 144/49 NIBP BP-Mean 80 Respiration from ECG 20 SpO2 100 I&O: 07/02/18 07/03/18 07/04/18 06:59 06:59 07:59 Intake Total 1994 1523 Output Total 200 0 Balance 1795 1523 Result Diagrams: 07/03/18 05:08 07/03/18 05:08 Additional Labs: Accuchecks 07/03/18 07/02/18 10:38 23:17 POC Glucose 130 H 149 H Phys Exam - Physical Examination ET tube in place HEENT: oral pharynx no lesions Neck: no nodes Vented sounds Cardiovascular: RRR, no significant murmur Gastrointestinal: non-tender, positive bowel sounds Musculoskeletal: pulses present Dx/Plan (1) ANDREA (acute kidney injury) Code(s): N17.9 - ACUTE KIDNEY FAILURE, UNSPECIFIED Status: Acute (2) CKD (chronic kidney disease) stage 4, GFR 15-29 ml/min Code(s): N18.4 - CHRONIC KIDNEY DISEASE, STAGE 4 (SEVERE) Status: Acute (3) Respiratory failure Code(s): J96.90 - RESPIRATORY FAILURE, UNSP, UNSP W HYPOXIA OR HYPERCAPNIA Status: Acute (4) DM type 2 (diabetes mellitus, type 2) Status: Chronic (5) HTN (hypertension) Code(s): I10 - ESSENTIAL (PRIMARY) HYPERTENSION Status: Chronic (6) Morbid obesity Code(s): E66.01 - MORBID (SEVERE) OBESITY DUE TO EXCESS CALORIES Status: Chronic - Plan respiratory therapy Not weanable at this time -: Dialysis per renal * .
[2018-07-03] MEDS: cefTRIAXone\\ROCEPHIN 1 GM in Sodium Chloride 0.9% 100 ML IVPB SCH (16:53)
[2018-07-03] MEDS: Propofol 1,000 MG/100 ML VIAL IV PRN (17:03)
[2018-07-03 20:15] VITALS: BMI 38.4
--- NOTE | 2018-07-03 20:33 | EKG ---
Test Reason : RESP DISTRESS Blood Pressure : / mmHG Vent. Rate : 049 BPM Atrial Rate : 049 BPM P-R Int : 146 ms QRS Dur : 082 ms QT Int : 510 ms P-R-T Axes : 056 004 113 degrees QTc Int : 460 ms Sinus bradycardia Cannot rule out Anterior infarct , age undetermined T wave abnormality, consider lateral ischemia Abnormal ECG Confirmed by SONAL LI, KEVEN ([id number]), rewrite editor CAMERON GONZALEZ ([id number]) on 07/03/2018 8:33:21 PM Referred By: DR PRUITT Confirmed By:KEVEN PRUITT MD
[2018-07-03] MEDS: Gabapentin 300 MG CAP PO SCH (21:11)
[2018-07-03] MEDS: Terazosin HCl 1 MG CAP PO SCH (21:12)
[2018-07-03] MEDS: Atorvastatin Calcium 10 MG TAB PO SCH (21:13)
[2018-07-04] MEDS: Propofol 1,000 MG/100 ML VIAL IV PRN (01:00)
[2018-07-04] MEDS: Piperacillin/Tazobactam 2.25 GM in Sodium Chloride 0.9% 100 ML IVPB SCH ×3 (01:00→17:33)
[2018-07-04] MEDS: Levothyroxine Sodium 100 MCG TAB PO SCH (05:06)
[2018-07-04] MEDS: Nitroglycerin 2% Ointment 1 INCH/1 GM Packet TOP SCH ×3 (05:07→20:52)
[2018-07-04 05:53] LABS: Chloride 101 mmol/L (98-107); Potassium 4.1 mmol/L (3.5-5.1); Sodium 135 mmol/L (136-145)
[2018-07-04 05:54] LABS: Anion Gap 14 mmol/L (10-20); BUN (Urea Nitrogen) 45 mg/dL (9.8-20.1); Calc. Creatinine Clearance 26 mL/min (70-130); Calcium 8.7 mg/dL (7.8-10.44); Carbon Dioxide 24 mmol/L (23-31); Estimated GFR-MDRD 16; Glucose 150 mg/dL (80-115)
[2018-07-04] MEDS: hydrALAZINE 20 MG/ML VIAL SLOW IVP PRN (06:19)
[2018-07-04] MEDS: Insulin Regular 300 UNITS/3 ML VIAL SC PRN ×2 (06:23→10:07)
[2018-07-04 07:37] LABS: Actual Bicarbonate (HCO3a) 25.2 mEq/L (22-28); Base Excess (BEa) -0.3 mEq/L (-2.0 to +3.0); CO2 Tension 45.4 mmHg (35.0-45.0); Calcium, Ionized 1.14 mmol/L (1.12-1.30); Carboxyhemoglobin (COHb) 0.9 gm% (0.0-3.0); Hemoglobin (Hb) 8.4 g/dL (12.0-16.0); O2 Tension (PaO2) 74.4 mmHg (> 70.0); Potassium - ABG Lab 4.29 mmol/L (3.70-5.30); pH, Arterial 7.36 (7.35-7.45)
[2018-07-04 07:38] LABS: Puncture Site RRA
[2018-07-04] MEDS: methylPREDNISolone Sod Succ 40 MG VIAL IVP SCH (08:22)
[2018-07-04] MEDS: Amlodipine 5 MG TAB PO SCH ×2 (08:22→20:49)
[2018-07-04] MEDS: Insulin Glargine 10 UNITS in Pre-Filled Syringe 1 EACH SC SCH (08:22)
[2018-07-04] MEDS: hydrALAZINE 25 MG TAB PO SCH ×3 (08:23→20:48)
[2018-07-04] MEDS: Ferrous Sulfate 325 MG TAB PO SCH ×2 (08:23→20:54)
[2018-07-04] MEDS: Carvedilol 6.25 MG TAB PER TUBE SCH ×2 (08:24→20:50)
[2018-07-04] MEDS: Famotidine 20 MG TAB PO SCH (08:24)
--- NOTE | 2018-07-04 09:42 | RAD ---
SINGLE VIEW OF THE CHEST: COMPARISON: 07/03/2018. HISTORY: Ventilated patient with respiratory failure. FINDINGS: A single view of the chest shows an enlarged but stable cardiomediastinal silhouette. A cardiac rebecca toring device projects over the chest wall. The endotracheal tube and NG tube re unchanged in positi on. There are bilateral veil-like opacities which likely represent layering pleural effusions. IMPRESSION: Stable exam. POS: [facility]
--- NOTE | 2018-07-04 10:13 | PDOC.PN ---
- Subjective Encounter Start Date: 07/04/18 Encounter Start Time: 10:12 Patient seen and examined in ICU Remains intubated. No overnight events - Objective Resuscitation Status - Order Detail: 06/30/18 15:49 Resuscitation Status Routine Resuscitation Status: FULL: Full Resuscitation MAR Reviewed: Yes Vital Signs & Weight: Vital Signs (12 hours) Temp Pulse Resp BP Pulse Ox 07/04/18 10:00 10 L 07/04/18 08:24 177/74 H 07/04/18 08:23 62 177/74 H 07/04/18 08:22 61 177/74 H 07/04/18 08:00 16 07/04/18 07:35 100 07/04/18 07:10 53 L 163/65 H 07/04/18 07:00 97.7 F 07/04/18 06:19 52 L 164/69 H 07/04/18 06:00 13 07/04/18 04:00 98.6 F 11 L 07/04/18 03:00 11 L 07/04/18 00:00 97.8 F 14 07/03/18 23:22 51 L 11 L 100 07/03/18 22:00 11 L Weight Admit Weight 230 lb 3.2 oz Weight 238 lb 1.588 oz Most Recent Monitor Data Heart Rate from ECG 64 NIBP 176/72 NIBP BP-Mean 106 Respiration from ECG 25 SpO2 91 I&O: 07/03/18 07/04/18 07/05/18 05:59 06:59 06:59 Intake Total 120 Output Total 0 Balance 120 Result Diagrams: 07/03/18 05:08 07/04/18 04:01 Additional Labs: Accuchecks 07/03/18 07/03/18 07/03/18 22:55 19:06 10:38 POC Glucose 165 H 159 H 130 H Phys Exam - Physical Examination Constitutional: NAD HEENT: sclera anicteric intubated Respiratory: no wheezing, no rales Cardiovascular: no significant murmur Gastrointestinal: soft Musculoskeletal: edema present Neurological: non-focal intubated but responsive and alert Skin: no rash Dx/Plan (1) Acute respiratory failure with hypoxia Code(s): J96.01 - ACUTE RESPIRATORY FAILURE WITH HYPOXIA Status: Acute (2) ANDREA (acute kidney injury) Code(s): N17.9 - ACUTE KIDNEY FAILURE, UNSPECIFIED Status: Acute (3) CKD (chronic kidney disease) stage 4, GFR 15-29 ml/min Code(s): N18.4 - CHRONIC KIDNEY DISEASE, STAGE 4 (SEVERE) Status: Acute (4) Acute on chronic diastolic heart failure Code(s): I50.33 - ACUTE ON CHRONIC DIASTOLIC (CONGESTIVE) HEART FAILURE Status : Acute (5) DM type 2 (diabetes mellitus, type 2) Status: Chronic (6) Morbid obesity Code(s): E66.01 - MORBID (SEVERE) OBESITY DUE TO EXCESS CALORIES Status: Chronic (7) MARI (obstructive sleep apnea) Code(s): G47.33 - OBSTRUCTIVE SLEEP APNEA (ADULT) (PEDIATRIC) Status: Chronic - Plan * . intubated ventilltary care per pulmonolgy HD today with UF as tolerated. Plan to remove 3L Monitor BP after HD and fluid removal AM labs.
--- NOTE | 2018-07-04 10:14 | PRG ---
DATE OF SERVICE: 07/04/2018 SUBJECTIVE: This morning, the patient is little bit more responsive. Sedation has been turned off. OBJECTIVE: VITAL SIGNS: Blood pressure 177/76, pulse 80, respiratory rate 18, sats 100%. CHEST: Decreased breath sounds. Bilateral rhonchi. CARDIAC: Sinus tach. ABDOMEN: No masses. LABORATORY DATA: PO2 74, pCO2 is 45, pH 7.36. Creatinine 3.4. IMPRESSION: Morbid obesity, respiratory failure, retained secretions, sleep apnea, bilateral pleural effusion, right greater than left. PLAN: We will hold sedation, hopefully try and wean. Otherwise, continue broad-spectrum antibiotics, neb treatments, supportive care. So far, cultures are negative. One-half hour of critical time. Job ID: [id number]
[2018-07-04] MEDS ORDERED: Heparin 1,000 UNITS/ML VIAL ONE (11:11)
[2018-07-04] MEDS: cefTRIAXone\\ROCEPHIN 1 GM in Sodium Chloride 0.9% 100 ML IVPB SCH (15:01)
[2018-07-04] MEDS: Atorvastatin Calcium 10 MG TAB PO SCH (20:50)
[2018-07-04] MEDS: Gabapentin 300 MG CAP PO SCH (20:51)
[2018-07-04] MEDS: Terazosin HCl 1 MG CAP PO SCH (20:51)
[2018-07-05] MEDS: Piperacillin/Tazobactam 2.25 GM in Sodium Chloride 0.9% 100 ML IVPB SCH (01:09)
[2018-07-05] MEDS: Nitroglycerin 2% Ointment 1 INCH/1 GM Packet TOP SCH ×3 (05:08→21:19)
[2018-07-05] MEDS: Levothyroxine Sodium 100 MCG TAB PO SCH (05:08)
[2018-07-05 06:01] LABS: #Lymphocytes 0.8 thou/uL (1.20-3.40); #Monocytes 0.6 thou/uL (0.11-0.59); #Neutrophils 10.1 thou/uL (1.40-6.50); %Basophils 0.3 % (0.0-1.0); %Eosinophils 0.1 % (0.0-10.0); %Lymphocytes 6.8 % (21.0-51.0); %Monocytes 5.4 % (0.0-10.0); %Neutrophils 87.5 % (42.0-75.0); Hemoglobin 7.8 g/dL (12.0-16.0); Mean Corpuscular HGB CONC 29.3 g/dL (32.0-36.0); Mean Corpuscular Hemoglobin 25.3 pg (27.0-31.0); Mean Corpuscular Volume 86.3 fL (78.0-98.0); Mean Platelet Volume 11.8 fL (7.4-10.4); Platelet Count 169 thou/uL (130-400); RBC Distribution Width 16.8 % (11.5-14.5); White Blood Cell (WBC) Count 11.6 thou/uL (4.8-10.8)
[2018-07-05 06:16] LABS: Anion Gap 12 mmol/L (10-20); BUN (Urea Nitrogen) 33 mg/dL (9.8-20.1); Calc. Creatinine Clearance 34 mL/min (70-130); Calcium 8.5 mg/dL (7.8-10.44); Carbon Dioxide 29 mmol/L (23-31); Chloride 99 mmol/L (98-107); Estimated GFR-MDRD 22; Glucose 104 mg/dL (80-115); Potassium 3.7 mmol/L (3.5-5.1); Sodium 136 mmol/L (136-145)
--- NOTE | 2018-07-05 08:05 | OP ---
DATE OF PROCEDURE: 07/02/2018 She was on noninvasive ventilation, being dialyzed for acute renal failure. Unfortunately, blood gas showed severe hypoxemia, severe metabolic respiratory acidosis. Saturations were running in the 80s. It was felt she need to be intubated. A bite block was placed in and a 7.5 endotracheal tube was placed above the bronchoscope. Posterior pharynx was visualized. Trachea was seen intubated. Tube was placed above the jatin. She was bagged. Copious amounts of pus came out of the endotracheal tube, and adapter was placed in. Bronchoscope was repassed again. Copious amounts of pus were removed from the distal trachea. Crania was sharp. Diffuse edema was seen. Right lung, right upper, right middle, and right lower lobes, with purulent secretion, but no endobronchial disease was seen. The left lung was again with purulent secretion, tracheobronchitis, no endobronchial disease, this was also lavaged with normal saline until completely clear. The washings that were obtained to be sent for Gram stain and C and S. The patient is connected to a volume cycle respirator. Start empiric antibiotics. Continue dialysis. Hopefully, we will wean once the patient is stabilized. This is a one-half hour of critical time along with intubation along with bronchoscopy and lavage. Job ID: [id number]
[2018-07-05] MEDS ORDERED: DC Sedation Protocol FS ONE (09:03)
--- NOTE | 2018-07-05 09:13 | RAD ---
PORTABLE CHEST: Date: 07/05/18 HISTORY: CCU follow-up. On ventilator. COMPARISON: 07/04/18. FINDINGS/IMPRESSION: ET tube has been removed. Mild cardiomegaly. Mild vascular engorgement. Right basilar opacification r emains, consistent with atelectasis or consolidation. I cannot exclude small effusions. No significan t change from yesterday. POS: [facility]
[2018-07-05] MEDS: Insulin Glargine 10 UNITS in Pre-Filled Syringe 1 EACH SC SCH (09:19)
--- NOTE | 2018-07-05 09:19 | PRG ---
DATE OF SERVICE: 07/05/2018 SUBJECTIVE: This morning, the patient is awake, alert, and responsive. She did wear a BiPAP last night. OBJECTIVE: VITAL SIGNS: Saturations are 94% on 4 L, temperature 98, and blood pressure 155/69. GENERAL: She is better. She is less short of breath. CHEST: Decreased breath sounds. No wheezing. CARDIAC: Normal S1 and S2. No gallops. ABDOMEN: No masses. LABORATORY DATA: Creatinine is 2.65. White count 11,000. IMPRESSION: Respiratory failure, morbid obesity, chronic obstructive pulmonary disease, and probably sleep apnea. PLAN: She can be transferred out of the ICU to a monitored bed. Try and de-escalate medication. All cultures so far negative. One-half hour of critical care time. Job ID: [id number]
[2018-07-05] MEDS: hydrALAZINE 25 MG TAB PO SCH ×3 (09:21→21:22)
[2018-07-05] MEDS: Ferrous Sulfate 325 MG TAB PO SCH ×2 (09:21→21:21)
[2018-07-05] MEDS: Famotidine 20 MG TAB PO SCH (09:22)
[2018-07-05] MEDS: Carvedilol 6.25 MG TAB PER TUBE SCH ×2 (09:22→21:22)
[2018-07-05] MEDS: Amlodipine 5 MG TAB PO SCH ×2 (09:22→21:22)
[2018-07-05] MEDS: methylPREDNISolone Sod Succ 40 MG VIAL IVP SCH (09:42)
[2018-07-05 12:12] LABS: Kappa Lambda Light Chain Ratio 2.81 (0.26-1.65); Kappa Light Chains 168.4 mg/L (3.3-19.4); Lambda Light Chain 59.9 mg/L (5.7-26.3)
--- NOTE | 2018-07-05 13:16 | PRG ---
DATE OF SERVICE: 07/05/2018 SUBJECTIVE: A 72-year-old female being seen for acute kidney injury with progressive rise in creatinine. The patient still has dyspnea and has made just 200 mL of urine. The patient is oxygen dependent. OBJECTIVE: CONSTITUTIONAL: On examination, the patient is awake and alert. VITAL SIGNS: Afebrile, pulse 74, breathing 16, and blood pressure 131/75. GENERAL APPEARANCE AND MENTAL STATUS: Fair. HEAD/NECK: Normocephalic. Atraumatic. EYES: EOMI. No deformity. EARS: Clear. No ulcers. NOSE: Intact. No lesions. MOUTH: Clear. No discharge. THROAT: Clear. No exudate. LUNGS: Clear. No crackles. CARDIAC: S1, S2. No rub. ABDOMEN: Benign. Bowel sounds positive. GENITALIA/RECTUM: Weeks absent. BACK/EXTREMITIES: Edema 0+. NEUROLOGICAL: Alert and motor intact. LABORATORY DATA: Labs show creatinine 2.6, potassium . ASSESSMENT AND PLAN: 1. Stage 6 chronic kidney disease. Plan dialysis. 2. Hyperkalemia, stable. 3. Anemia, stable. 4. Medications based on glomerular filtration rate are appropriate. 5. Congestive heart failure. We will plan dialysis to remove fluid. Job ID: [id number]
--- NOTE | 2018-07-05 15:27 | PDOC.PN ---
- Subjective Encounter Start Date: 07/05/18 Encounter Start Time: 11:00 Subjective: C/O SOB AND WEAKNESS - Objective Resuscitation Status - Order Detail: 06/30/18 15:49 Resuscitation Status Routine Resuscitation Status: FULL: Full Resuscitation MAR Reviewed: Yes Vital Signs & Weight: Vital Signs (12 hours) Temp Pulse Pulse Pulse Resp BP BP 07/05/18 15:00 98.2 F 07/05/18 14:52 62 187/67 H 07/05/18 13:55 62 20 07/05/18 12:00 98.5 F 07/05/18 09:22 62 163/68 H 07/05/18 09:21 62 07/05/18 08:54 69 65 146/59 H 07/05/18 07:49 07/05/18 07:02 07/05/18 07:00 98.5 F 07/05/18 06:59 62 17 BP Pulse Ox Pulse Ox Pulse Ox 07/05/18 15:00 07/05/18 14:52 07/05/18 13:55 07/05/18 12:00 07/05/18 09:22 07/05/18 09:21 07/05/18 08:54 108/54 L 99 94 L 07/05/18 07:49 97 07/05/18 07:02 99 07/05/18 07:00 07/05/18 06:59 99 Weight Admit Weight 230 lb 3.2 oz Weight 238 lb 1.588 oz Most Recent Monitor Data Heart Rate from ECG 63 NIBP 179/68 NIBP BP-Mean 105 Respiration from ECG 19 SpO2 97 I&O: 07/04/18 07/05/18 07/06/18 06:59 06:59 06:59 Intake Total 1043 860 Output Total 150 200 Balance 893 660 Result Diagrams: 07/05/18 05:03 07/05/18 05:03 Additional Labs: Accuchecks 07/05/18 07/04/18 07/04/18 11:29 21:01 16:19 POC Glucose 124 H 127 H 126 H Phys Exam - Physical Examination HEENT: moist MMs Neck: no nodes, no JVD, supple Respiratory: no rales, no rhonchi Cardiovascular: no significant murmur, no rub Gastrointestinal: soft, non-tender, no distention, positive bowel sounds Musculoskeletal: pulses present Neurological: non-focal, moves all 4 limbs Lymphatic: no nodes Psychiatric: normal affect, A&O x 3 Skin: normal turgor Dx/Plan (1) ANDREA (acute kidney injury) Code(s): N17.9 - ACUTE KIDNEY FAILURE, UNSPECIFIED Status: Acute (2) Acute respiratory failure with hypoxia Code(s): J96.01 - ACUTE RESPIRATORY FAILURE WITH HYPOXIA Status: Acute (3) CKD (chronic kidney disease) stage 4, GFR 15-29 ml/min Code(s): N18.4 - CHRONIC KIDNEY DISEASE, STAGE 4 (SEVERE) Status: Acute (4) Acute on chronic diastolic heart failure Code(s): I50.33 - ACUTE ON CHRONIC DIASTOLIC (CONGESTIVE) HEART FAILURE Status : Acute (5) COPD exacerbation Code(s): J44.1 - CHRONIC OBSTRUCTIVE PULMONARY DISEASE W (ACUTE) EXACERBATION Status: Acute (6) Hypokalemia Code(s): E87.6 - HYPOKALEMIA Status: Acute (7) Hypomagnesemia Code(s): E83.42 - HYPOMAGNESEMIA Status: Acute - Plan plan discussed w/ family, PT/OT, out of bed/ambulate, DVT proph w/SCDs 1.EVALUATE FOR SNF PLACEMENT. * .
[2018-07-05] MEDS: Terazosin HCl 1 MG CAP PO SCH (21:21)
[2018-07-05] MEDS: Amoxicillin/Potassium Clav 500 MG TAB PO SCH (21:21)
[2018-07-05] MEDS: Atorvastatin Calcium 10 MG TAB PO SCH (21:22)
[2018-07-05] MEDS: Gabapentin 300 MG CAP PO SCH (21:22)
[2018-07-06] MEDS ORDERED: hydrALAZINE 20 MG/ML VIAL ONE (00:05)
[2018-07-06] MEDS: hydrALAZINE 20 MG/ML VIAL SLOW IVP PRN ×2 (00:06→16:28)
[2018-07-06] MEDS: Levothyroxine Sodium 100 MCG TAB PO SCH (06:25)
[2018-07-06] MEDS: Nitroglycerin 2% Ointment 1 INCH/1 GM Packet TOP SCH ×3 (06:25→21:12)
[2018-07-06 06:44] LABS: Anion Gap 9 mmol/L (10-20); BUN (Urea Nitrogen) 25 mg/dL (9.8-20.1); Calc. Creatinine Clearance 41 mL/min (70-130); Calcium 8.7 mg/dL (7.8-10.44); Carbon Dioxide 32 mmol/L (23-31); Chloride 100 mmol/L (98-107); Estimated GFR-MDRD 27; Glucose 96 mg/dL (80-115); Potassium 3.7 mmol/L (3.5-5.1); Sodium 137 mmol/L (136-145)
[2018-07-06] MEDS ORDERED: Epoetin (ESRD) 10,000 UNITS/ML VIAL SC SCH (09:00)
[2018-07-06] MEDS: Carvedilol 6.25 MG TAB PER TUBE SCH ×2 (09:00→21:14)
[2018-07-06] MEDS: predniSONE 20 MG TAB PO SCH (09:00)
[2018-07-06] MEDS: Amlodipine 5 MG TAB PO SCH ×2 (09:01→21:14)
[2018-07-06] MEDS: hydrALAZINE 25 MG TAB PO SCH ×3 (09:02→21:14)
[2018-07-06] MEDS: Ferrous Sulfate 325 MG TAB PO SCH ×2 (09:06→21:14)
[2018-07-06] MEDS: Famotidine 20 MG TAB PO SCH (09:13)
[2018-07-06] MEDS: Insulin Glargine 10 UNITS in Pre-Filled Syringe 1 EACH SC SCH (09:33)
--- NOTE | 2018-07-06 09:41 | EKG ---
Test Reason : Blood Pressure : / mmHG Vent. Rate : 068 BPM Atrial Rate : 068 BPM P-R Int : 136 ms QRS Dur : 088 ms QT Int : 440 ms P-R-T Axes : 047 009 161 degrees QTc Int : 467 ms Normal sinus rhythm Septal infarct , age undetermined cannot be excluded Abnormal ECG Confirmed by NINFA CABAN ([id number]) on 07/06/2018 9:41:27 AM Referred By: JANELLE Confirmed By:NINFA CABAN
--- NOTE | 2018-07-06 09:47 | PRG ---
DATE OF SERVICE: 07/06/2018 SUBJECTIVE: Neli Rothman, this morning, awake, alert, responsive, post extubation, doing well. No distress. OBJECTIVE: VITAL SIGNS: Sats are 99% on 2 L, pulse 66, blood pressure 160/80, and respiratory rate 18. CHEST: Decreased breath sounds. No wheezing. CARDIAC: Normal S1 and S2. No gallops. ABDOMEN: No masses. LABORATORY DATA: Creatinine 2.2. IMPRESSION: 1. Respiratory failure. 2. Obesity and sleep apnea. 3. Chronic obstructive pulmonary disease. PLAN: Needs to be transferred out of the ICU. Continue cardiac care . Continue dialysis by nephrology. We will follow. Job ID: [id number]
[2018-07-06] MEDS: Amoxicillin/Potassium Clav 500 MG TAB PO SCH ×2 (09:58→21:14)
--- NOTE | 2018-07-06 10:07 | PRG ---
DATE OF SERVICE: 07/06/2018 SUBJECTIVE: A 72-year-old female being seen for acute kidney injury. The patient denies any nausea, vomiting, or chest pain. OBJECTIVE: GENERAL: The patient is awake and alert. VITAL SIGNS: Afebrile, pulse 70, breathing 16, and blood pressure 163/101. GENERAL APPEARANCE AND MENTAL STATUS: Fair. HEAD/NECK: Normocephalic. Atraumatic. EYES: EOMI. No deformity. EARS: Clear. No ulcers. NOSE: Intact. No lesions. MOUTH: Clear. No discharge. THROAT: Clear. No exudate. LUNGS: Clear. No crackles. CARDIAC: S1, S2. No rub. ABDOMEN: Benign. Bowel sounds positive. GENITALIA/RECTUM: Weeks absent. BACK/EXTREMITIES: Edema 0+. NEUROLOGICAL: Alert and motor intact. SKIN: LYMPHATICS: LABORATORY DATA: Reviewed. Hemoglobin 7.8. ASSESSMENT AND PLAN: 1. Stage 6 chronic kidney disease. Continue hemodialysis. 2. Hypertension, stable. 3. Anemia, stable. 4. Medication based on GFR appropriate. Job ID: [id number]
[2018-07-06 13:20] LABS: IgA - Total IgA (Sendout) 421 mg/dL (87-352); Immunoglobulin - G (Sendout) 1246 mg/dL (700-1600); Immunoglobulin - M (Sendout) 94 mg/dL (26-217)
--- NOTE | 2018-07-06 15:12 | PDOC.PN ---
- Subjective Encounter Start Date: 07/06/18 Encounter Start Time: 14:15 Subjective: SOB AND WEAKNESS RESOLVING - Objective Resuscitation Status - Order Detail: 06/30/18 15:49 Resuscitation Status Routine Resuscitation Status: FULL: Full Resuscitation MAR Reviewed: Yes Vital Signs & Weight: Vital Signs (12 hours) Temp Pulse Resp BP Pulse Ox 07/06/18 12:57 98.7 F 07/06/18 12:41 67 14 07/06/18 09:02 66 07/06/18 09:01 66 07/06/18 09:00 166/58 H 07/06/18 07:50 99 07/06/18 07:07 99 07/06/18 07:05 66 22 H 99 07/06/18 07:00 98.8 F 07/06/18 04:00 98.6 F Weight Admit Weight 230 lb 3.2 oz Weight 238 lb 1.588 oz Most Recent Monitor Data Heart Rate from ECG 74 NIBP 162/61 NIBP BP-Mean 94 Respiration from ECG 19 SpO2 100 I&O: 07/05/18 07/06/18 07/07/18 06:59 06:59 06:59 Intake Total 1043 1796 625 Output Total 150 200 400 Balance 893 1596 225 Result Diagrams: 07/05/18 05:03 07/06/18 09:46 Additional Labs: Accuchecks 07/06/18 07/06/18 07/06/18 11:14 09:34 06:16 POC Glucose 138 H 140 H 100 07/05/18 07/05/18 21:19 16:12 POC Glucose 124 H 122 H Phys Exam - Physical Examination HEENT: moist MMs Neck: no nodes, no JVD Respiratory: no wheezing, no rales, no rhonchi Cardiovascular: no significant murmur, no rub Gastrointestinal: non-tender, no distention Musculoskeletal: no edema Neurological: non-focal, normal sensation, moves all 4 limbs Lymphatic: no nodes Psychiatric: normal affect, A&O x 3 Skin: no rash Dx/Plan (1) ANDREA (acute kidney injury) Code(s): N17.9 - ACUTE KIDNEY FAILURE, UNSPECIFIED Status: Resolved (2) Acute respiratory failure with hypoxia Code(s): J96.01 - ACUTE RESPIRATORY FAILURE WITH HYPOXIA Status: Resolved (3) CKD (chronic kidney disease) stage 4, GFR 15-29 ml/min Code(s): N18.4 - CHRONIC KIDNEY DISEASE, STAGE 4 (SEVERE) Status: Chronic Plan: Needs outpatient follow up with Nephrology (4) Acute on chronic diastolic heart failure Code(s): I50.33 - ACUTE ON CHRONIC DIASTOLIC (CONGESTIVE) HEART FAILURE Status : Resolved (5) COPD exacerbation Code(s): J44.1 - CHRONIC OBSTRUCTIVE PULMONARY DISEASE W (ACUTE) EXACERBATION Status: Resolved (6) Hypokalemia Code(s): E87.6 - HYPOKALEMIA Status: Resolved (7) Hypomagnesemia Code(s): E83.42 - HYPOMAGNESEMIA Status: Resolved - Plan plan discussed w/ family 1.Will transfer patient to Tele today. -: 2.Appreicate Pulmonary and cardiology. -: 3.Need to consider snf placement in 24-48 hrs * .
[2018-07-06] MEDS: Insulin Regular 300 UNITS/3 ML VIAL SC PRN (17:23)
[2018-07-06] MEDS: Gabapentin 300 MG CAP PO SCH (21:13)
[2018-07-06] MEDS: Terazosin HCl 1 MG CAP PO SCH (21:13)
[2018-07-06] MEDS: Atorvastatin Calcium 10 MG TAB PO SCH (21:14)
[2018-07-07 05:30] LABS: #Lymphocytes 1.6 thou/uL (1.20-3.40); #Monocytes 0.9 thou/uL (0.11-0.59); #Neutrophils 6.9 thou/uL (1.40-6.50); %Basophils 0.3 % (0.0-1.0); %Eosinophils 0.2 % (0.0-10.0); %Lymphocytes 16.4 % (21.0-51.0); %Monocytes 9.6 % (0.0-10.0); %Neutrophils 73.5 % (42.0-75.0); Hemoglobin 8.4 g/dL (12.0-16.0); Mean Corpuscular Hemoglobin 25.4 pg (27.0-31.0); Mean Corpuscular Volume 84.6 fL (78.0-98.0); Mean Platelet Volume 8.9 fL (7.4-10.4); Platelet Count 159 thou/uL (130-400); RBC Distribution Width 16.2 % (11.5-14.5); Red Blood Cell (RBC) Count 3.31 mill/uL (4.20-5.40); White Blood Cell (WBC) Count 9.4 thou/uL (4.8-10.8)
[2018-07-07 05:51] LABS: ALT (SGPT) 13 U/L (8-55); AST (SGOT) 10 U/L (5-34); Albumin 3.5 g/dL (3.4-4.8); Alkaline Phosphatase 43 U/L (40-150); Anion Gap 9 mmol/L (10-20); BUN (Urea Nitrogen) 35 mg/dL (9.8-20.1); Bilirubin, Total 0.2 mg/dL (0.2-1.2); Calc. Creatinine Clearance 34 mL/min (70-130); Calcium 8.9 mg/dL (7.8-10.44); Carbon Dioxide 30 mmol/L (23-31); Chloride 100 mmol/L (98-107); Estimated GFR-MDRD 22; Globulin 3.1 g/dL (2.4-3.5); Glucose 106 mg/dL (80-115); Potassium 3.9 mmol/L (3.5-5.1); Protein, Total 6.6 g/dL (6.0-8.3); Sodium 135 mmol/L (136-145)
[2018-07-07] MEDS: Nitroglycerin 2% Ointment 1 INCH/1 GM Packet TOP SCH ×3 (05:52→21:03)
[2018-07-07] MEDS: Levothyroxine Sodium 100 MCG TAB PO SCH (05:52)
[2018-07-07] MEDS: hydrALAZINE 25 MG TAB PO SCH ×3 (07:57→21:03)
[2018-07-07] MEDS: Famotidine 20 MG TAB PO SCH (07:57)
[2018-07-07] MEDS: Amlodipine 5 MG TAB PO SCH ×2 (07:58→20:56)
[2018-07-07] MEDS: Carvedilol 6.25 MG TAB PER TUBE SCH ×2 (07:58→20:56)
[2018-07-07] MEDS: Ferrous Sulfate 325 MG TAB PO SCH ×2 (07:59→20:56)
[2018-07-07] MEDS: Amoxicillin/Potassium Clav 500 MG TAB PO SCH ×2 (07:59→20:56)
[2018-07-07] MEDS: predniSONE 20 MG TAB PO SCH (07:59)
[2018-07-07] MEDS: Insulin Glargine 10 UNITS in Pre-Filled Syringe 1 EACH SC SCH (08:01)
--- NOTE | 2018-07-07 09:58 | PRG ---
DATE OF SERVICE: 07/07/2018 SUBJECTIVE: This morning patient still complains of congestion in the chest. OBJECTIVE: VITAL SIGNS: Temperature is 98, sats 99% on 3 L, respiratory rate 16, blood pressure 151/62. CHEST: Decreased breath sounds, bilateral rhonchi. CARDIAC: Normal S1 and S2. No gallops. ABDOMEN: No masses. DIAGNOSTIC DATA: Creatinine 2.6. IMPRESSION: 1. Respiratory failure. 2. Morbid obesity. 3. Bronchitis. 4. Chronic obstructive pulmonary disease. 5. Renal failure. PLAN: Pulmonary smalls, she needs outpatient sleep study done. Continue p.o. antibiotics, neb treatments, steroids. We will follow home in the next several days. Job ID: [id number]
--- NOTE | 2018-07-07 10:30 | PRG ---
DATE OF SERVICE: 07/07/2018 SUBJECTIVE: The patient is seen and examined at bedside. She is feeling better. Her weakness improved to some extent. Her appetite is fair. Bowel movements yesterday. OBJECTIVE: VITAL SIGNS: Blood pressure is 151/62, pulse is 68, respiratory rate is 16, O2 saturation is 95% on O2. Temperature is 98.7. HEENT: Head is atraumatic and normocephalic. Eyes are PERRLA. Sclerae are nonicteric. Oral mucosa is slightly dry. Poor oral hygiene. NECK: Supple. LUNGS: Expiratory wheezes and crackles, mild to moderate bilaterally present. HEART: S1 and S2 normal. No S3. No S4. ABDOMEN: Soft, nontender. Bowel sounds present. No organomegaly. EXTREMITIES: No clubbing, cyanosis, or edema. NEUROLOGICAL: She follows my commands. She moves all four extremities. There are no any motor deficits. LABORATORY DATA: Labs showed white count of 9.4, hemoglobin 8.4, hematocrit 28.0, platelet count is 159,000. Sodium of 135, potassium 3.9, chloride 100, CO2 of 30, BUN 35, creatinine 2.64. The rest of chemistry within normal limits. IMPRESSION: 1. Acute kidney injury. 2. Acute respiratory failure with hypoxia. 3. Chronic kidney disease stage 4. 4. Acute on chronic diastolic heart failure. 5. Chronic obstructive pulmonary disease exacerbation. 6. Hypokalemia. 7. Hypomagnesemia. PLAN: Continue hemodialysis per Nephrology service. Continue PT and OT and arrange SNU transfer. Continue antibiotics. Continue DuoNeb. Job ID: [id number]
--- NOTE | 2018-07-07 11:49 | PRG ---
DATE OF SERVICE: 07/07/2018 SUBJECTIVE: A 72-year-old female being seen for acute kidney injury. The patient denies any nausea, vomiting, or chest pain. OBJECTIVE: GENERAL: The patient is awake and alert. VITAL SIGNS: Afebrile, pulse 60, breathing 16, and blood pressure 155/77. GENERAL APPEARANCE AND MENTAL STATUS: Fair. HEAD/NECK: Normocephalic. Atraumatic. EYES: EOMI. No deformity. EARS: Clear. No ulcers. NOSE: Intact. No lesions. MOUTH: Clear. No discharge. THROAT: Clear. No exudate. LUNGS: Clear. No crackles. CARDIAC: S1, S2. No rub. ABDOMEN: Benign. Bowel sounds positive. GENITALIA/RECTUM: Weeks absent. BACK/EXTREMITIES: Edema 0+. NEUROLOGICAL: Alert and motor intact. SKIN: LYMPHATICS: LABORATORY DATA: Labs show hemoglobin of 8.4. Creatinine 2.6. ASSESSMENT: 1. Chronic kidney disease stage 5 versus 6. We will check creatinine clearance. 2. Hypertension, stable. 3. Anemia, stable. 4. Congestive heart failure. PLAN: We will plan dialysis tomorrow. Job ID: [id number]
[2018-07-07] MEDS: Mometasone/Formoterol 120 PUFF INHALER INH SCH (18:55)
[2018-07-07] MEDS: Atorvastatin Calcium 10 MG TAB PO SCH (20:56)
[2018-07-07] MEDS: Gabapentin 300 MG CAP PO SCH (20:57)
[2018-07-07] MEDS: Terazosin HCl 1 MG CAP PO SCH (20:57)
[2018-07-07] MEDS: guaiFENesin ER 600 MG TAB PO SCH (20:57)
[2018-07-08] MEDS: Nitroglycerin 2% Ointment 1 INCH/1 GM Packet TOP SCH ×3 (05:14→21:46)
[2018-07-08] MEDS: hydrALAZINE 20 MG/ML VIAL SLOW IVP PRN ×2 (05:14→18:32)
[2018-07-08] MEDS: Levothyroxine Sodium 100 MCG TAB PO SCH (05:14)
[2018-07-08] MEDS: Mometasone/Formoterol 120 PUFF INHALER INH SCH ×2 (06:37→19:05)
[2018-07-08] MEDS: Insulin Glargine 10 UNITS in Pre-Filled Syringe 1 EACH SC SCH (08:42)
[2018-07-08] MEDS: hydrALAZINE 25 MG TAB PO SCH ×3 (08:42→21:45)
[2018-07-08] MEDS: predniSONE 20 MG TAB PO SCH (08:43)
[2018-07-08] MEDS: Carvedilol 6.25 MG TAB PER TUBE SCH ×2 (08:43→21:44)
[2018-07-08] MEDS: NIFEdipine XL 60 MG TAB PO SCH (08:44)
[2018-07-08] MEDS: Ferrous Sulfate 325 MG TAB PO SCH ×2 (08:44→21:45)
[2018-07-08] MEDS: guaiFENesin ER 600 MG TAB PO SCH ×2 (08:44→21:44)
[2018-07-08] MEDS: Famotidine 20 MG TAB PO SCH (08:44)
[2018-07-08] MEDS: Amoxicillin/Potassium Clav 500 MG TAB PO SCH ×2 (08:44→21:45)
--- NOTE | 2018-07-08 08:44 | PRG ---
DATE OF SERVICE: 07/08/2018 SUBJECTIVE: The patient is seen and examined at the bedside. She is feeling good. Her appetite is good. She is not in any pain. OBJECTIVE: VITAL SIGNS: Blood pressure is 151/116, pulse is 63, temperature is 98.4, respiratory rate is 15, and O2 saturation is 95%. HEENT: Head is atraumatic and normocephalic. Sclerae are nonicteric. Oral mucosa is moist. NECK: Supple. LUNGS: Breath sounds are diminished at both bases. HEART: S1 and S2 normal. No S3. No S4. ABDOMEN: Obese, soft, nontender, and nondistended. EXTREMITIES: No clubbing, cyanosis, or edema. NEUROLOGICAL: She follows my commands. She moves all 4 extremities. There is no any motor deficits. LABORATORY DATA: Glycemia is ranging from 116 to 171. We do not have creatinine level today, 2.64 yesterday. Microbiology, nothing new. Echocardiogram results came back, which shows LVEF of 65% to 70% with a moderately enlarged left atrium, moderately enlarged right atrium. Severe tricuspid regurgitation. Moderately elevated pulmonary artery pressure. IMPRESSION: 1. Acute kidney injury. 2. Acute respiratory failure with hypoxia, improved. 3. Chronic kidney disease, stage 5 or 6. 4. Acute on chronic diastolic heart failure. 5. Chronic obstructive pulmonary disease exacerbation, improved. 6. Hypokalemia. 7. Hypomagnesemia, resolved. PLAN: We are going to obtain medical records from the [facility]. The patient tells me that she had some additional testing done there. In the meantime, she is going to be dialyzed today. We are looking for [facility] for her to continue to transition to outpatient care. I am going to change her amlodipine to nifedipine 60 mg once a day since her blood pressure is still running high. We will continue her carvedilol, hydralazine 3 times a day, levothyroxine, isosorbide, prednisone 20 mg, terazosin 2 mg at bedtime. Continue PT and OT. Continue DuoNeb. Job ID: [id number]
--- NOTE | 2018-07-08 10:05 | PRG ---
DATE OF SERVICE: 07/08/2018 SUBJECTIVE: This morning, she is better, less short of breath, less cough. OBJECTIVE: VITAL SIGNS: Sats are 90% on room air, pulse 106, blood pressure is elevated at 185/68. CHEST: Decreased breath sounds. No wheezing. CARDIAC: Normal S1 and S2. No gallops. ABDOMEN: No masses. IMPRESSION: Morbid obesity, respiratory failure, sleep apnea, bronchitis, and chronic renal failure. PLAN: Disposition home any time. Follow up with the primary care physician. Continue antibiotics, neb treatments, and supportive care. Job ID: [id number]
[2018-07-08] MEDS: Insulin Regular 300 UNITS/3 ML VIAL SC PRN (11:36)
--- NOTE | 2018-07-08 12:18 | PRG ---
DATE OF SERVICE: 07/08/2018 SUBJECTIVE: A 72-year-old female being seen for acute kidney injury. The patient denies any nausea, vomiting, or chest pain. OBJECTIVE: CONSTITUTIONAL: The patient is awake and alert. VITAL SIGNS: Afebrile, pulse 87, breathing 16, and blood pressure 167/77. GENERAL APPEARANCE AND MENTAL STATUS: Fair. HEAD/NECK: Normocephalic. Atraumatic. EYES: EOMI. No deformity. EARS: Clear. No ulcers. NOSE: Intact. No lesions. MOUTH: Clear. No discharge. THROAT: Clear. No exudate. LUNGS: Clear. No crackles. CARDIAC: S1, S2. No rub. ABDOMEN: Benign. Bowel sounds positive. GENITALIA/RECTUM: Weeks absent. BACK/EXTREMITIES: Edema 0+. NEUROLOGICAL: Alert and motor intact. SKIN: LYMPHATICS: LABORATORY DATA: Labs are pending. IMPRESSION: 1. Chronic kidney disease, stage 5. Plan dialysis. 2. Edema. Plan dialysis. 3. Hypertension, stable. 4. Medication based on GFR, appropriate. I have ordered a 24-hour urine collection. It has not been done. Job ID: [id number]
[2018-07-08 16:09] LABS: Hemoglobin 8.2 g/dL (12.0-16.0)
[2018-07-08] MEDS: Gabapentin 300 MG CAP PO SCH (21:45)
[2018-07-08] MEDS: Atorvastatin Calcium 10 MG TAB PO SCH (21:45)
[2018-07-08] MEDS: Terazosin HCl 1 MG CAP PO SCH (21:45)
[2018-07-09] MEDS ORDERED: hydrALAZINE 25 MG TAB PO PRN (03:22)
[2018-07-09] MEDS ORDERED: Ondansetron ODT 4 MG TAB PO PRN (03:22)
[2018-07-09] MEDS: Nitroglycerin 2% Ointment 1 INCH/1 GM Packet TOP SCH ×3 (05:24→21:27)
[2018-07-09] MEDS: Levothyroxine Sodium 100 MCG TAB PO SCH (05:24)
[2018-07-09] MEDS: Mometasone/Formoterol 120 PUFF INHALER INH SCH ×2 (07:31→18:30)
[2018-07-09] MEDS ORDERED: Heparin 10,000 UNITS/ 10 ML VIAL ONE (08:14)
[2018-07-09] MEDS: hydrALAZINE 25 MG TAB PO SCH ×3 (09:33→21:27)
[2018-07-09] MEDS: Amoxicillin/Potassium Clav 500 MG TAB PO SCH ×2 (09:33→21:26)
[2018-07-09] MEDS: guaiFENesin ER 600 MG TAB PO SCH ×2 (09:33→21:27)
[2018-07-09] MEDS: Ferrous Sulfate 325 MG TAB PO SCH ×2 (09:33→21:26)
[2018-07-09] MEDS: Famotidine 20 MG TAB PO SCH (09:33)
[2018-07-09] MEDS: NIFEdipine XL 60 MG TAB PO SCH (09:33)
[2018-07-09] MEDS: predniSONE 20 MG TAB PO SCH (09:33)
[2018-07-09] MEDS: Insulin Glargine 10 UNITS in Pre-Filled Syringe 1 EACH SC SCH (09:34)
[2018-07-09] MEDS: Carvedilol 6.25 MG TAB PO SCH ×2 (09:34→16:42)
[2018-07-09 09:53] LABS: Anion Gap 12 mmol/L (10-20); BUN (Urea Nitrogen) 31 mg/dL (9.8-20.1); Calc. Creatinine Clearance 47 mL/min (70-130); Calcium 8.5 mg/dL (7.8-10.44); Carbon Dioxide 27 mmol/L (23-31); Chloride 100 mmol/L (98-107); Estimated GFR-MDRD 32; Glucose 145 mg/dL (80-115); Potassium 3.7 mmol/L (3.5-5.1); Sodium 135 mmol/L (136-145)
--- NOTE | 2018-07-09 10:08 | PRG ---
DATE OF SERVICE: 07/09/2018 SUBJECTIVE: This morning, she is much better. Less short of breath. Less cough. Less wheezing. OBJECTIVE: VITAL SIGNS: Sats are 98% on 2 L, respirations 16, temperature 97, pulse 66, and blood pressure CHEST: Decreased breath sounds. No wheezing. CARDIAC: Normal S1 and S2. No gallops. ABDOMEN: No masses. IMPRESSION: Morbid obesity, probably sleep apnea, renal failure status post dialysis, respiratory failure, chronic obstructive pulmonary disease, and tracheobronchitis. PLAN: Disposition placement. Renal following for ongoing dialysis. Outpatient sleep study. Job ID: [id number]
--- NOTE | 2018-07-09 12:34 | PRG ---
DATE OF SERVICE: 07/09/2018 SUBJECTIVE: The patient is seen and examined at the bedside. She is in IMCU bed B3. She seems to be doing okay. She is not in any respiratory distress at the time of my visit. Apparently, there was an order for creatinine and 24-hour urine collection, which was not fulfilled and the patient is going to be getting collection of her urine again for the next 24 hours to obtain the specimen and check her creatinine level in the sample. OBJECTIVE: VITAL SIGNS: Blood pressure is 162/60, pulse is 77, respiratory rate is 22, and O2 saturation is not documented for this morning. HEENT: Head is atraumatic and normocephalic. Eyes are PERRLA. Sclerae are nonicteric. Oral mucosa is moist. NECK: Supple. LUNGS: Clear. HEART: S1 and S2 normal. No S3. No S4. ABDOMEN: Soft, obese, and nontender. EXTREMITIES: 1+ peripheral edema similar bilaterally. NEUROLOGICAL: She follows my commands. She moves all 4 extremities. There are no any sensory or motor deficits present. Cranial nerves are intact. LABORATORY DATA: Labs showed sodium of 135, potassium 3.7, chloride 100, CO2 of 27, BUN 31, creatinine 1.88, glucose 145, and calcium 8.5. IMPRESSION: 1. Acute on chronic kidney injury, stage 5. 2. Pulmonary hypertension. 3. Acute respiratory failure with hypoxia, improved. 4. Chronic obstructive pulmonary disease exacerbation. 5. Hypokalemia, resolved. 6. Hypomagnesemia, resolved. 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 Wants to complete her 24-hour urine collection for creatinine to make decision whether she needs to be started on hemodialysis during this hospitalization and that is what we are doing. We will continue her current regimen with PT and OT and medications. Job ID: [id number]
--- NOTE | 2018-07-09 17:11 | PRG ---
DATE OF SERVICE: 07/09/2018 SUBJECTIVE: A 72-year-old female, being seen for acute kidney injury. The patient denies any nausea, vomiting, or chest pain. OBJECTIVE: GENERAL: The patient is awake and alert. VITAL SIGNS: Afebrile, pulse 75, breathing 16, blood pressure 159/86. GENERAL APPEARANCE AND MENTAL STATUS: Fair. HEAD/NECK: Normocephalic. Atraumatic. EYES: EOMI. No deformity. EARS: Clear. No ulcers. NOSE: Intact. No lesions. MOUTH: Clear. No discharge. THROAT: Clear. No exudate. LUNGS: Clear. No crackles. CARDIAC: S1, S2. No rub. ABDOMEN: Benign. Bowel sounds positive. GENITALIA/RECTUM: Weeks absent. BACK/EXTREMITIES: Edema 0+. NEUROLOGICAL: Alert and motor intact. SKIN: LYMPHATICS: ASSESSMENT AND RECOMMENDATIONS: 1. Stage 5 chronic kidney disease. We will recheck labs . 2. Hypertension, stable. 3. Anemia, stable. 4. Medication based on GFR, appropriate. Job ID: [id number]
[2018-07-09] MEDS: Gabapentin 300 MG CAP PO SCH (21:23)
[2018-07-09] MEDS: Terazosin HCl 1 MG CAP PO SCH (21:26)
[2018-07-09] MEDS: Atorvastatin Calcium 10 MG TAB PO SCH (21:27)
[2018-07-10] MEDS: Levothyroxine Sodium 100 MCG TAB PO SCH (05:10)
[2018-07-10] MEDS: Nitroglycerin 2% Ointment 1 INCH/1 GM Packet TOP SCH ×3 (05:10→21:26)
[2018-07-10] MEDS: Mometasone/Formoterol 120 PUFF INHALER INH SCH ×2 (06:38→19:40)
--- NOTE | 2018-07-10 08:37 | PRG ---
DATE OF SERVICE: 07/10/2018 SUBJECTIVE: The patient is seen and examined at the bedside. She is doing well. She is sitting up and eating her breakfast. Her appetite is good. She had bowel movement yesterday. We are continuing her urine collection 24 hours for creatinine. She does not have much complaints to offer. She participates in physical therapy. OBJECTIVE: VITAL SIGNS: Blood pressure is 147/84, pulse is 66, temperature is 98.2, respiratory rate 17, and O2 saturation is 100% on 2 L by nasal cannula. HEENT: Head is atraumatic and normocephalic. Eyes are PERRLA. Sclerae are nonicteric. Oral mucosa is moist. NECK: Supple. No lymphadenopathy. LUNGS: Clear. HEART: S1 and S2 normal. No S3. No S4. ABDOMEN: Soft, nontender, and obese. EXTREMITIES: 1+ peripheral edema similar bilaterally. NEUROLOGIC: She follows my commands. There is no any motor or sensory deficits present. Cranial nerves are intact. LABORATORY DATA: Labs showed glycemia is between 107 and 199. Microbiology, no new findings. IMPRESSION: 1. Urgeq-kc-vayiqup kidney disease, stage 5. 2. Pulmonary hypertension. 3. Acute respiratory failure with hypoxia, improved. 4. Chronic obstructive pulmonary disease exacerbation. 5. Hypokalemia, resolved. 6. Hypomagnesemia, resolved. PLAN: To [facility] to [facility] was postponed. We are still collecting a 24-hour urine for creatinine for Dr. Cooley, who will be able to make decision about dialysis on this patient. We will continue PT and OT. We will continue current regimen and continue on insulin 10 units, Lantus once a day plus sliding scale. She will continue on Augmentin 500 mg twice a day. She will continue on prednisone 20 mg once a day. We are going to start tapering her prednisone dose tomorrow. Job ID: [id number]
[2018-07-10 09:26] LABS: Anion Gap 15 mmol/L (10-20); BUN (Urea Nitrogen) 42 mg/dL (9.8-20.1); Calc. Creatinine Clearance 44 mL/min (70-130); Calcium 8.7 mg/dL (7.8-10.44); Carbon Dioxide 19 mmol/L (23-31); Chloride 100 mmol/L (98-107); Estimated GFR-MDRD 29; Glucose 137 mg/dL (80-115); Potassium 4.2 mmol/L (3.5-5.1); Sodium 130 mmol/L (136-145)
[2018-07-10] MEDS: Ferrous Sulfate 325 MG TAB PO SCH ×2 (09:33→21:19)
[2018-07-10] MEDS: NIFEdipine XL 60 MG TAB PO SCH (09:33)
[2018-07-10] MEDS: guaiFENesin ER 600 MG TAB PO SCH ×2 (09:33→21:21)
[2018-07-10] MEDS: Amoxicillin/Potassium Clav 500 MG TAB PO SCH ×2 (09:33→21:21)
[2018-07-10] MEDS: hydrALAZINE 25 MG TAB PO SCH ×3 (09:33→21:20)
[2018-07-10] MEDS: Carvedilol 6.25 MG TAB PO SCH ×2 (09:34→15:33)
[2018-07-10] MEDS: predniSONE 20 MG TAB PO SCH (09:34)
[2018-07-10] MEDS: Insulin Glargine 10 UNITS in Pre-Filled Syringe 1 EACH SC SCH (09:34)
[2018-07-10] MEDS: Famotidine 20 MG TAB PO SCH (09:34)
[2018-07-10 10:30] LABS: 24 Hr Creatinine 1126.57 mg/24 hr (710-1650); Creatinine, Urine 61.73 mg/dL (47-110)
--- NOTE | 2018-07-10 11:21 | PRG ---
DATE OF SERVICE: 07/10/2018 SUBJECTIVE: A 72-year-old female, being seen for acute kidney injury. The patient denies any nausea, vomiting, or chest pain. OBJECTIVE: CONSTITUTIONAL: The patient is awake and alert. VITAL SIGNS: Afebrile, pulse 75, breathing 16, and blood pressure was 149/93. GENERAL APPEARANCE AND MENTAL STATUS: Fair. HEAD/NECK: Normocephalic. Atraumatic. EYES: EOMI. No deformity. EARS: Clear. No ulcers. NOSE: Intact. No lesions. MOUTH: Clear. No discharge. THROAT: Clear. No exudate. LUNGS: Clear. No crackles. CARDIAC: S1, S2. No rub. ABDOMEN: Benign. Bowel sounds positive. GENITALIA/RECTUM: Weeks absent. BACK/EXTREMITIES: Edema 0+. NEUROLOGICAL: Alert and motor intact. SKIN: LYMPHATICS: LABORATORY DATA: Hemoglobin 8.2. Creatinine 2.02. ASSESSMENT AND PLAN: Chronic kidney disease stage 4, stable. Acute kidney injury, improved. Anemia, stable. Medication based on GFR appropriate. No indication for dialysis. We will discontinue tunneled catheter. Job ID: [id number]
[2018-07-10] MEDS: Terazosin HCl 1 MG CAP PO SCH (21:20)
[2018-07-10] MEDS: Gabapentin 300 MG CAP PO SCH (21:21)
[2018-07-10] MEDS: Atorvastatin Calcium 10 MG TAB PO SCH (21:21)
--- NOTE | 2018-07-10 23:30 | PRG ---
DATE OF SERVICE: 07/10/2018 SUBJECTIVE: Neli Rothman is doing reasonably well. PAST HISTORY: Not obtained. SOCIAL HISTORY: Unknown. FAMILY HISTORY: Unknown. REVIEW OF SYSTEMS: 10 point review of systems completed, otherwise negative. OBJECTIVE: VITAL SIGNS: Blood pressure over today is 147/84, heart rate of 66. She is afebrile. Oximetry is 100% on 2 L. HEAD: Unremarkable. NECK: Unremarkable. LUNGS: Clear. HEART: Regular rhythm. ABDOMEN: Soft and nontender. EXTREMITIES: Without clubbing, cyanosis, or edema. NEURO: Nonfocal. IMPRESSION AND PLAN: Chronic obstructive pulmonary disease, improving. She is in the middle of a 24-hour urine creatinine and then tentatively to go to swing bed. We will continue to follow. This is a 50 minute consult, with greater than 50% of time spent on unit coordinating care. Job ID: [id number] MTDD
[2018-07-11] MEDS: Levothyroxine Sodium 100 MCG TAB PO SCH (05:35)
[2018-07-11] MEDS: Nitroglycerin 2% Ointment 1 INCH/1 GM Packet TOP SCH ×2 (05:36→16:49)
[2018-07-11] MEDS: Mometasone/Formoterol 120 PUFF INHALER INH SCH (07:15)
--- NOTE | 2018-07-11 09:47 | PRG ---
DATE OF SERVICE: 07/11/2018 SUBJECTIVE: The patient is seen and examined at the bedside. She is up. She always gets up in the morning. She has good appetite. She is not in any distress during my visit. She is of good spirits. OBJECTIVE: VITAL SIGNS: Blood pressure is 148/56, pulse is 71, respiratory rate is 15, O2 saturation is 100% on 2 L by nasal cannula. HEENT: Head is atraumatic and normocephalic. Eyes are PERRLA. Sclerae are nonicteric. Oral mucosa is moist. NECK: Supple, obese. LUNGS: Clear. HEART: S1, S2 normal. There is a systolic murmur at the left sternal border, mostly audible 2/6. ABDOMEN: Soft, obese, nontender. Bowel sounds are present. No organomegaly. EXTREMITIES: 1 to 2+ nonpitting edema in both lower extremities. LABORATORY DATA: Labs showed 24-hour urine collection volume at 1825, urine creatinine 61.7. Urine creatinine 24-hour . IMPRESSION: 1. Acute on chronic kidney disease, stage 5 or 6. 2. Pulmonary hypertension. 3. Acute respiratory failure with hypoxia, improved. 4. Chronic obstructive pulmonary disease exacerbation, improved. 5. Hypokalemia, resolved. 6. Hypomagnesemia, resolved. PLAN: Plan is to discharge her to swing bed as soon as we have final report from Dr. Cooley, who will make decision about further in dialysis. She will continue on current regimen for her insulin coverage. She will continue her Augmentin and we are going to taper her prednisone. We will need a few more days of Augmentin and prednisone and she can be discharged to swing bed if Dr. Cooley's decision about dialysis is negative. Job ID: [id number]
[2018-07-11] MEDS: NIFEdipine XL 60 MG TAB PO SCH (11:28)
[2018-07-11] MEDS: hydrALAZINE 25 MG TAB PO SCH ×2 (11:28→16:49)
[2018-07-11] MEDS: Famotidine 20 MG TAB PO SCH (11:29)
[2018-07-11] MEDS: Insulin Glargine 10 UNITS in Pre-Filled Syringe 1 EACH SC SCH (11:30)
[2018-07-11] MEDS: Carvedilol 6.25 MG TAB PO SCH (11:30)
[2018-07-11] MEDS: predniSONE 20 MG TAB PO SCH (11:31)
[2018-07-11] MEDS: guaiFENesin ER 600 MG TAB PO SCH (11:31)
[2018-07-11] MEDS: Ferrous Sulfate 325 MG TAB PO SCH (11:31)
[2018-07-11 11:36] VITALS: BP 159/64
[2018-07-11 15:00] VITALS: TEMP 97.8
--- NOTE | 2018-07-11 15:05 | PRG ---
DATE OF SERVICE: 07/11/2018 SUBJECTIVE: A 72-year-old female being seen for end-stage renal disease. The patient denies any nausea, vomiting, or chest pain. OBJECTIVE: GENERAL: The patient is awake and alert. VITAL SIGNS: Afebrile, pulse 84, breathing 16, blood pressure GENERAL APPEARANCE AND MENTAL STATUS: Fair. HEAD/NECK: Normocephalic. Atraumatic. EYES: EOMI. No deformity. EARS: Clear. No ulcers. NOSE: Intact. No lesions. MOUTH: Clear. No discharge. THROAT: Clear. No exudate. LUNGS: Clear. No crackles. CARDIAC: S1, S2. No rub. ABDOMEN: Benign. Bowel sounds positive. GENITALIA/RECTUM: Weeks absent. BACK/EXTREMITIES: Edema 0+. NEUROLOGICAL: Alert and motor intact. SKIN: LYMPHATICS: LABORATORY DATA: Labs show hemoglobin 8.2. IMPRESSION AND PLAN: 1. Stage 3 chronic kidney disease, stable. This is based on a 24-hour creatinine . 2. Hypertension, stable. 3. Anemia, stable. 4. Medication based on GFR appropriate. 5. Congestive heart failure. The patient will continue Lasix 40 mg. Labs checked weekly. The patient will follow up to see me in 1 to 2 weeks. Job ID: [id number]
--- NOTE | 2018-07-11 15:36 | PRG ---
DATE OF SERVICE: 07/11/2018 SUBJECTIVE: Neli Rothman did well overnight. She says she is feeling a little bit better. OBJECTIVE: VITAL SIGNS: She is afebrile. Heart rate is in the 60s, respiratory rate is 17, oximetry is in the high 90s on 2 L, blood pressure 142/78. LUNGS: Distant clear. HEART: Regular rate and rhythm. ABDOMEN: Soft. IMPRESSION: Chronic obstructive pulmonary disease exacerbation, improving. She appears to be stable at this time. Job ID: [id number] [facility]
--- NOTE | 2018-07-12 12:23 | DIS ---
DATE OF ADMISSION: 06/30/2018 DATE OF DISCHARGE: 07/11/2018 DIAGNOSES AT THE TIME OF DISCHARGE: 1. Trqgl-ea-qqigfyo kidney disease, stage most likely 4. 2. Pulmonary hypertension. 3. Acute respiratory failure with hypoxia, resolved. 4. Chronic obstructive pulmonary disease exacerbation, resolved. 5. Hypokalemia, resolved. 6. Hypomagnesemia, resolved. 7. Morbid obesity. CONSULTANTS: Dr. Alexandre Quintanilla, Cardiology Service; Dr. Leonel Lal, Cardiology Service; Dr. Cisco Garzon, Pulmonary Service; General Surgery for right femoral venous Trialysis catheter for dialysis; Dr. Roque Rocha, Cardiology Service; Dr. Nba Mccartney, Pulmonary Service; Dr. Wei Mcgrath, Nephrology Service; Dr. James Cooley, Nephrology Service; and Dr. Darrian Devries, Pulmonary Service. HOSPITAL COURSE: The patient is a 72-year-old female, who was admitted to the hospital with increased shortness of breath. Apparently, she is on 2 L by nasal cannula of oxygen at home for her COPD, and she started having some cough, and she was treated with antibiotics on outpatient basis, but there was no any improvement, so she came to the emergency room looking for further medical attention and help. She denied any fever or chills. At the time of ER evaluation, her respiratory rate was 22. She was hypoxic and was placed on BiPAP. She had white count of 7.8, hemoglobin 7.9, hematocrit 26.9, platelet count 170,000. Her creatinine was up to 2.84. Troponin 0.041. BNP 1587. The rest of chemistry was within normal limits. Chest x-ray showed congestive heart failure, decompensated, and old, nondisplaced right-sided rib fractures without any pneumothorax. The patient was admitted to [facility] with BiPAP and Lasix for diuresis IV, and Cardiology was consulted. She was on morphine and aspirin. The patient was seen by Dr. Quintanilla for cardiology evaluation. He recommended to continue diuresis. According to his notes, she had normal coronary arteries with catheterization in the past and normal left ventricular function on echos. Had a catheter placed for dialysis by general surgeon, Dr. Romero. Underwent hemodialysis, supervised by Dr. Mcgrath. Ultrasound on her kidneys showed left renal cyst, and there was not any evidence of hydronephrosis. Her pulmonary status improved significantly as soon as she was dialyzed. Her volume overload was gradually better with subsequent dialysis. Also, the patient was put on antibiotics, steroids, and DuoNebs for possible exacerbation of her COPD. She is on 2 L by nasal cannula of oxygen at home. She received PT during this hospitalization. Recently, an echocardiogram was done, which showed ejection fraction of 65% to 70% with normal right ventricular size and function with severe tricuspid regurgitation, moderately elevated pulmonary artery pressure, and mild pulmonic regurgitation. She was continued on hemodialysis. Her electrolytes deficiencies were replaced, and generally, she improved significantly. Then, she underwent a 24-hour urine collection, which showed a volume of 1825. Urine creatinine was 61.7, and urine creatinine 24 hours was 1126.57. So, digital solutions architect made decision that she does not need any dialysis, and she can be discharged. Originally, she was planned to go to a swing bed in [place] because of her problems with walking, but she improved in the last few days to the point that she was able to walk several times her room, and she wants to go home. I walked her today, and she did not have any problem even shortness of breath without oxygen on her while walking multiple times the length of the room where she stays. So, she is going home in good condition. She will continue her 2 L of O2 by nasal cannula. Her diabetes will be controlled with diet and oral pills. ACTIVITIES: As tolerated. DISCHARGE MEDICATIONS: Her medications at the time of discharge: 1. Prednisone 5 mg once a day. 2. Metformin 1000 mg twice a day. 3. Hydralazine 100 mg 3 times a day. 4. Terazosin 2 mg at bedtime. 5. Zoloft 150 mg once a day. 6. Ranitidine 150 mg twice a day. 7. Pravachol 40 mg at bedtime. 8. Levothyroxine 200 mcg daily. 9. Isosorbide mononitrate 30 mg twice a day. 10. Gabapentin 300 mg 3 times a day. 11. Lasix 40 mg once a day. 12. Ferrous sulfate 325 mg twice a day. 13. Dicyclomine 20 mg q.i.d. p.r.n. 14. Nifedipine 60 mg daily. 15. Dulera 200 mcg/5 mcg inhaler 2 puffs twice a day. 16. Procrit 10,000 units subcutaneous injection q.7 days. 17. Carvedilol 12.5 mg twice a day. 18. Tylenol p.r.n. FOLLOWUP: She will follow up with her primary care physician in 1 week and she will follow up with Dr. Cooley and Dr. Mcgrath for Nephrology followup visit. The patient was seen and examined before she was discharged. TIME SPENT: Discharge time is more than 30 minutes. Job ID: [id number]
== END 2018-07-11 17:54 | disposition home or self-care (01) | DRG 981 ==
LOC: ERS 14:18 → ERHOLD 15:21 → IMCU/EMU 18:03 → CCU 07-02 12:02 → IMCU/EMU 07-07 08:24
PROVIDERS: ADMIT Internal Medicine; ATTEND Internal Medicine
PROC: 5A09357 Assistance with Respiratory Ventilation, Less than 24 Consecutive Hours, Continuous Positive Airway Pressure (ICD-10-PCS; 2018-06-30)
PROC: 5A1945Z Respiratory Ventilation, 24-96 Consecutive Hours (ICD-10-PCS; principal; 2018-07-02)
PROC: 0B9M8ZZ Drainage of Bilateral Lungs, Via Natural or Artificial Opening Endoscopic (ICD-10-PCS; 2018-07-02)
PROC: 06HM33Z Insertion of Infusion Device into Right Femoral Vein, Percutaneous Approach (ICD-10-PCS; 2018-07-02)
PROC: 0BH18EZ Insertion of Endotracheal Airway into Trachea, Via Natural or Artificial Opening Endoscopic (ICD-10-PCS; 2018-07-02)
PROC: 5A1D70Z Performance of Urinary Filtration, Intermittent, Less than 6 Hours Per Day (ICD-10-PCS; 2018-07-02)
PROC: 5A1D70Z Performance of Urinary Filtration, Intermittent, Less than 6 Hours Per Day (ICD-10-PCS; 2018-07-03)
PROC: 5A1D70Z Performance of Urinary Filtration, Intermittent, Less than 6 Hours Per Day (ICD-10-PCS; 2018-07-04)
PROC: 5A1D70Z Performance of Urinary Filtration, Intermittent, Less than 6 Hours Per Day (ICD-10-PCS; 2018-07-05)
PROC: 5A1D70Z Performance of Urinary Filtration, Intermittent, Less than 6 Hours Per Day (ICD-10-PCS; 2018-07-08)
DX: I13.0 Hypertensive heart and chronic kidney disease with heart failure and stage 1 through stage 4 chronic kidney disease, or unspecified chronic kidney disease (principal); I50.33 Acute on chronic diastolic (congestive) heart failure; J96.01 Acute respiratory failure with hypoxia; J44.1 Chronic obstructive pulmonary disease with (acute) exacerbation; N17.9 Acute kidney failure, unspecified; E87.2 Acidosis; N18.4 Chronic kidney disease, stage 4 (severe); E11.22 Type 2 diabetes mellitus with diabetic chronic kidney disease; I27.20 Pulmonary hypertension, unspecified; F20.9 Schizophrenia, unspecified; E83.42 Hypomagnesemia; E66.01 Morbid (severe) obesity due to excess calories; D63.1 Anemia in chronic kidney disease; E03.9 Hypothyroidism, unspecified; E78.5 Hyperlipidemia, unspecified; F17.290 Nicotine dependence, other tobacco product, uncomplicated; M19.90 Unspecified osteoarthritis, unspecified site; E87.6 Hypokalemia; Z68.36 Body mass index [BMI] 36.0-36.9, adult; I25.2 Old myocardial infarction; Z99.81 Dependence on supplemental oxygen; Z87.11 Personal history of peptic ulcer disease; Z79.4 Long term (current) use of insulin; Z79.52 Long term (current) use of systemic steroids; Z79.899 Other long term (current) drug therapy; Z95.810 Presence of automatic (implantable) cardiac defibrillator
CPT/HCPCS: 36415; 36416; 71045; 76770; 80048; 80053; 81001; 82553; 82565; 82570; 82575; 82728; 82805; 83540; 83550; 83883; 84484; 85007; 85018; 85025; 85027; 86334; 86335; 86706; 87070; 87205; 87340; 90471; 90662; 93005; 93010; 93306; 93798; 94002; 94003; 94640; 94660; 94760; C1752; G0008; J0360; J0696; J1642; J1644; J1815; J1825; J1940; J2060; J2250; J2270; J2405; J2543; J2704; J2920; J3370; J7050; J7512; J7620; P9047; Q4081

== ENCOUNTER 2019-07-21 18:53 | Inpatient (IN) | payer MEDICARE, MEDICAID ==
[2019-07-21] MEDS ORDERED: Acetaminophen 650 MG Suppository PR PRN (21:40)
[2019-07-21] MEDS ORDERED: SYSTANE 3.5 GM TUBE EA EYE PRN (21:40)
[2019-07-21] MEDS ORDERED: Acetaminophen 650 MG/20.3 ML UDCUP PO PRN (21:40)
[2019-07-21] MEDS ORDERED: Ondansetron PF 4 MG/2 ML Vial IVP PRN (21:40)
[2019-07-21] MEDS ORDERED: Insulin Regular 300 UNITS/3 ML VIAL SC PRN (21:40)
[2019-07-21] MEDS ORDERED: Sodium Chloride 0.9% 1,000 ML IV SCH ×3 (21:45→22:46)
[2019-07-21] MEDS ORDERED: Ventilator Sedation Protocol 1 EACH FS SCH (21:45)
[2019-07-21] MEDS ORDERED: Cefepime 2 GM in Sodium Chloride 0.9% 100 ML IVPB SCH ×2 (21:45→23:00)
[2019-07-21] MEDS ORDERED: Albuterol 200 PUFF (6.7GM INHALER) INH PRN (21:46)
[2019-07-21] MEDS ORDERED: Ipratropium Oral Inhaler INH PRN (21:46)
[2019-07-21] MEDS ORDERED: Vancomycin 1 GM in Premix Bag 1 BAG IVPB SCH ×3 (22:00→23:15)
[2019-07-21] MEDS ORDERED: Propofol 1,000 MG/100 ML VIAL IV ONE (22:03)
[2019-07-21] MEDS ORDERED: Propofol BOLUS 1,000 MG/100 ML VIAL IV PRN (22:07)
[2019-07-21] MEDS ORDERED: DISCONTINUE PREVIOUS NARCOTIC PAIN MEDICATIONS AND BENZODIAZEPINES FS SCH (22:07)
[2019-07-21] MEDS ORDERED: fentaNYL Citrate/PF 2,000 MCG in Sodium Chloride 0.9% 60 ML IV SCH (22:07)
[2019-07-21] MEDS ORDERED: Fentanyl BOLUS 250 ML IVPB PRN (22:07)
[2019-07-21] MEDS ORDERED: Vancomycin Sliding Scale 1 EACH FS ONE (23:15)
[2019-07-21] MEDS ORDERED: HOLD VANCOMYCIN FOR LEVEL >20 FS SCH (23:15)
[2019-07-21] MEDS ORDERED: Vancomycin HCl 500 MG in Sodium Chloride 0.9% 100 ML IVPB SCH (23:15)
[2019-07-21] MEDS ORDERED: Vancomycin HCl 1.25 GM in Sodium Chloride 0.9% 250 ML 250 ML IVPB SCH (23:15)
[2019-07-21] MEDS ORDERED: Vancomycin HCl 750 MG in Sodium Chloride 0.9% 250 ML 250 ML IVPB SCH (23:15)
--- NOTE | 2019-07-21 23:23 | PDOC.FPRHP ---
- History of Present Illness Chief Complaint: Respiratory distress, fever, increasing O2 requirement History of Present Illness: Ms. Rothman is a 73yo AA female who presented to the ED from the [place] [facility]. At the time of our evaluation the patient was intubated an sedated and unable to provide further history. We will attempt to contact family for more of the history. Per ID pt has PMH of COPD, prior pneumonia (hospitalized in may), HTN, hypothyroidism, prior CVA, HFpEF who presents for worsening mentation and increasing O2 requirement with fever. Pt was seen in [facility] and had ct scan of chest which showed left lower lobe opacification which was read as unchanged from prior, images unavailable for review. Additionally, pt had ct brain which showed chronic white matter changes, otherwise NAD. Pt had UA which showed 3+ bacteria and pos leuks. WBC 10.6, Hgb 7.4. Additionally pt had evidence of ckd 3 on initial labs. ED Course: Vanc, cefepime, albuterol nebs - Allergies/Adverse Reactions Allergies Allergy/AdvReac Type Severity Reaction Status Date / Time JAYSHREE Inhibitors Allergy Verified 07/21/19 21:41 ANGIOTENSIN 2 RECEPTOR Allergy Uncoded 07/17/19 16:11 BLOCKERS - Home Medications Medication Instructions Recorded Confirmed Type Amlodipine [Norvasc] 5 mg PER TUBE DAILY 03/31/19 07/21/19 History Ascorbic Acid 500 mg PER TUBE DAILY 03/31/19 07/21/19 History Ferrous Sulfate 325 mg PO DAILY 04/01/19 07/21/19 History Furosemide 40 mg PO DAILY 04/01/19 07/21/19 History Isosorbide Mononitrate [Isosorbide 30 mg PO BID 04/01/19 07/21/19 History Mononitrate ER] Omeprazole 40 mg PO DAILY 04/01/19 07/21/19 History Acetaminophen [Acetaminophen Oral 650 mg PO Q6H PRN bottle 05/16/19 07/21/19 Rx Solution] Doxazosin [Cardura] 4 mg PER TUBE HS tab 05/16/19 07/21/19 Rx Levothyroxine Sodium [Synthroid] 25 mcg PER TUBE 0600 tab 05/16/19 07/21/19 Rx Minoxidil 2.5 mg PO DAILY tab 05/16/19 07/21/19 Rx cloNIDine [Vtskzhvu-OXY-2 Patch] 0.3 mg TD Q7D@1900 patch 05/16/19 07/21/19 Rx levETIRAcetam [Keppra Oral 500 mg PER TUBE BID ml 05/16/19 07/21/19 Rx Solution] Carvedilol [Coreg] 12.5 mg PER TUBE BID-WM 07/21/19 07/21/19 History Lactulose 10 gm PO DAILYPRN PRN 07/21/19 07/21/19 History Lorazepam [Ativan] 0.5 mg PER TUBE Q6H PRN 07/21/19 07/21/19 History Magnesium Hydroxide [Milk Of 30 ml PO BIDPRN PRN 07/21/19 07/21/19 History Magnesium] Phenytoin 100 mg PO TID 07/21/19 07/21/19 History hydrALAZINE [Apresoline] 50 mg PO Q8HR 07/21/19 07/21/19 History - History The following information is obtained from review of prior admissions. PMHx: Hypertension DMII CKD Stage III NH, s/p ROSC with anoxic brain injury (trach and peg) Diastolic HF, EF 60%, s/p AICD Asthma/COPD Hypothyroidism HLD Peptic ulcer disease Schizophrenia / Bipolar disorder PSHx: Trach PEG AICD Cholecystecomy Hysterectomy Cardiac cath 2007 - normal Colonoscopy 2008 - diverticulosis FHx: Unable to obtain. Prior records show diabetes and HTN. Social: Former tobacco abuse. Former marijuana use. - Review of Systems ROS unobtainable: due to endotracheal tube - Vital signs BP: 166/70 HR: 82 RR: 13 Tmax: 99.9F Pox: 100% on vent Wt: 85kg Vent: SIMV rate 16, TV 400, FiO2 40, Peep 5, Pressure 10, Satting 100%. - Physical Exam Constitutional: NAD HEENT: normocephalic and atraumatic, conjunctiva clear, no scleral icterus, MMM , other (ET tube in place) Neck: supple, trachea midline, no LAD, no JVD Heart: RRR, normal S1/S2, no murmurs/rubs/gallops, pulses present, no edema Lungs: CTAB, no rales/rhonchi, no wheezing, other (on ventilator, diminished left base) Abdomen: soft, bowel sounds present, no masses/distention Musculoskeletal: normal structure, normal tone Neurological: other (sedated, propofol) Skin: no rash/lesions, good turgor, capillary refill <2 seconds Heme/Lymphatic: no unusual bruising or bleeding, no purpura, no petechia FMR H&P: Results - Radiology Interpretation CT scan - chest Status: report reviewed by me (Lll opacification, unchanged) CT scan - head Status: report reviewed by me (NAD, chronic changes) FMR H&P: A/P - Problem List (1) Respiratory failure Current Visit: No Status: Acute Code(s): J96.90 - RESPIRATORY FAILURE, UNSP , UNSP W HYPOXIA OR HYPERCAPNIA Qualifiers: Respiratory failure complication: hypoxia and hypercapnia (2) Diastolic heart failure Current Visit: Yes Status: Acute Code(s): I50.30 - UNSPECIFIED DIASTOLIC ( CONGESTIVE) HEART FAILURE (3) CKD (chronic kidney disease) stage 4, GFR 15-29 ml/min Current Visit: No Status: Chronic Code(s): N18.4 - CHRONIC KIDNEY DISEASE, STAGE 4 (SEVERE) (4) DM type 2 (diabetes mellitus, type 2) Current Visit: No Status: Chronic (5) HTN (hypertension) Current Visit: No Status: Chronic Code(s): I10 - ESSENTIAL (PRIMARY) HYPERTENSION (6) Hypothyroid Current Visit: No Status: Chronic Code(s): E03.9 - HYPOTHYROIDISM, UNSPECIFIED (7) UTI (urinary tract infection) Current Visit: Yes Status: Acute (8) SIRS (systemic inflammatory response syndrome) Current Visit: Yes Status: Acute Code(s): R65.10 - SIRS OF NON-INFECTIOUS ORIGIN W/O ACUTE ORGAN DYSFUNCTION - Plan Intubated 2/2 acute hypoxic respiratory failure - admit ICU on vent support, FiO2 40%, PS 10 Peep 5 - initial gas 7.36ph, pCO2 52, PO2>200 on 80% FiO2, repeat - COVID pending, check RVP - On ventilator for support. - On Vanc and Cefepime, cont - check procalcitonin UTI - 3+ bacteria, prior psuedomonal UTI sensistive to cefepime, cont SIRS: - tachypnea and temp >103 - gentle IVF and check labs as above Diabetes - SSI and hypoglycemia protocol - accuchecks achs Hypertension - Will continue Isosorbide mononitrate, Clonidine, Carvedilol, Amlodipine, and Hydralazine. - initial bp 220/110 Diastolic HF - Continue medications above, and lasix. - Will closely monitor fluid status Hypothyroidism - Continue Levothyroxine 25mcg Unknown seizure disorder - Continue phenytoin, lorazepam, and keppra Continue Home PRN medications Dispo: Poor prognosis, cont ventilator support. Pulm consulted, covid and rvp pending, will check procal. Repeat labs and trend. LOS >2 days. Attempted to reach family, no answer, retry in am. Code: Full PCP: Marybeth YEE H&P: Upper Level - Plan Date/Time: 07/21/19 7684 Upper level h&p
[2019-07-21] MEDS: cloNIDine 0.1 MG TAB PO PRN (23:48)
[2019-07-21] MEDS ORDERED: Cefepime 1 GM in Sodium Chloride 0.9% 100 ML IVPB SCH (23:59)
[2019-07-22] MEDS ORDERED: Dextrose 5% in Water 1,000 ML IV PRN (00:50)
[2019-07-22] MEDS ORDERED: Dextrose 50% Abboject 50 ML SYRINGE SLOW IVP PRN (00:50)
[2019-07-22] MEDS ORDERED: Milk Of Magnesia 30 ML UDCUP PO PRN (00:50)
[2019-07-22] MEDS: Lactated Ringer's 1,000 ML IV SCH ×2 (01:05→14:43)
[2019-07-22 02:51] LABS: Band 7 % (5-11); Elliptocytes SLIGHT = 2-5 cells (100X) (0-1/hpf); Hemoglobin 7.4 g/dL (12.0-16.0); Lymphocytes 24 % (21-51); MDiff Complete? YES; Mean Corpuscular HGB CONC 32.3 g/dL (32.0-36.0); Mean Corpuscular Hemoglobin 27.1 pg (27.0-31.0); Mean Corpuscular Volume 83.8 fL (78.0-98.0); Mean Platelet Volume 11.6 fL (7.4-10.4); Metamyelocyte 2 % (0-0); Monocytes 5 % (0-10); Neutrophil 62 % (42-75); Platelet Count 167 thou/uL (130-400); RBC Distribution Width 14.2 % (11.5-14.5); Red Blood Cell (RBC) Count 2.74 mill/uL (4.20-5.40); White Blood Cell (WBC) Count 8.3 thou/uL (4.8-10.8)
[2019-07-22 03:05] LABS: ALT (SGPT) Less than 7 U/L (8-55); AST (SGOT) 11 U/L (5-34); Albumin 2.8 g/dL (3.4-4.8); Alkaline Phosphatase 43 U/L (40-110); Anion Gap 19 mmol/L (10-20); BUN (Urea Nitrogen) 20 mg/dL (9.8-20.1); Bilirubin, Total 0.2 mg/dL (0.2-1.2); Calc. Creatinine Clearance 68 mL/min (70-130); Calcium 7.9 mg/dL (7.8-10.44); Carbon Dioxide 21 mmol/L (23-31); Chloride 106 mmol/L (98-107); Estimated GFR-MDRD 64; Globulin 3.9 g/dL (2.4-3.5); Glucose 90 mg/dL (83-110); Magnesium 1.7 mg/dL (1.6-2.6); Potassium 3.7 mmol/L (3.5-5.1); Protein, Total 6.7 g/dL (6.0-8.3); Sodium 142 mmol/L (136-145)
[2019-07-22] MEDS: Propofol 1,000 MG/100 ML VIAL IV PRN ×5 (03:24→17:54)
[2019-07-22] MEDS: hydrALAZINE 25 MG TAB PO SCH ×3 (03:37→21:17)
[2019-07-22 04:12] LABS: Phosphorus 1.7 mg/dL (2.3-4.7)
[2019-07-22] MEDS: Levothyroxine Sodium 25 MCG TAB PER TUBE SCH (05:57)
--- NOTE | 2019-07-22 07:38 | PDOC.FM ---
- Subjective Subjective: Pt intubated and sedated - Objective MAR Reviewed: Yes Vital Signs & Weight: Vital Signs (12 hours) Temp Pulse Resp BP Pulse Ox 07/22/19 07:04 75 164/64 H 07/22/19 06:00 16 07/22/19 04:00 97.8 F 16 07/22/19 03:37 84 199/71 H 07/22/19 02:22 78 07/22/19 02:00 18 07/22/19 00:00 98.7 F 16 07/21/19 23:48 185/69 H 07/21/19 22:54 82 07/21/19 22:22 100 07/21/19 22:00 99.9 F H 07/21/19 21:37 105 H Weight Weight 87.1 kg Most Recent Monitor Data Heart Rate from ECG 75 NIBP 186/71 NIBP BP-Mean 109 Respiration from ECG 20 SpO2 100 I&O: 07/21/19 07/22/19 07/23/19 06:59 06:59 06:59 Intake Total 1174 Output Total 700 Balance 474 Result Diagrams: 07/22/19 02:15 07/22/19 02:15 Radiology Reviewed by me: Yes Phys Exam - Physical Examination Constitutional: NAD Respiratory: no wheezing, no rales, clear to auscultation bilateral Cardiovascular: RRR Gastrointestinal: soft, no distention Musculoskeletal: no edema Skin: no rash Dx/Plan - Plan Plan: Acute hypoxic respiratory failure - Intubated 07/20 - Initial ABG 7.36/52/>200 on 80% FiO2 - COVID pending, check RVP - Procal 0.15 - Continue Vanc and Cefepime, cont UTI - Cx pending. Prior pseudomonal UTI sensitive to cefepime - Cont Cefepime Sepsis 2/2 Viral infection vs HCAP - Tachypnea and febrile - IVF - See above Diabetes - SSI and hypoglycemia protocol - Accuchecks q6h Hypertension - Continue Isosorbide mononitrate, Clonidine, Carvedilol, Amlodipine, and Hydralazine. Diastolic HF - Continue medications above, and lasix. - Strict I&Os, daily wts Hypothyroidism - Continue Levothyroxine 25mcg Seizures - Continue phenytoin, lorazepam, keppra Code Status: Full PCP: Marybeth
--- NOTE | 2019-07-22 07:46 | RAD ---
PORTABLE CHEST 1 VIEW: DATE: 07/22/2019. TIME: 4:48 AM. HISTORY: Respiratory failure. FINDINGS: Comparison is made with the exam of 05/04/2019. There is an endotracheal tube with tip just below the level of the clavicular heads. A nasogastric t ube can be traced into the stomach with tip excluded from the film. Loop recorder device on the left is again seen. The heart is enlarged with consolidation/atelectatic change of the left lung base. Accompanying left effusion cannot be excluded. The right lung is clear. No pneumothoraces are seen. There are degenerative changes in the spine. POS: MZA
[2019-07-22 08:18] LABS: Actual Bicarbonate (HCO3a) 27.8 mEq/L (22-28); Base Excess (BEa) 4.5 mEq/L (-2.0 to +3.0); CO2 Tension 35.2 mmHg (35.0-45.0); Calcium, Ionized 1.08 mmol/L (1.12-1.30); Carboxyhemoglobin (COHb) 1.9 gm% (0.0-3.0); Hemoglobin (Hb) 7.2 g/dL (12.0-16.0); O2 Tension (PaO2) 90.1 mmHg (> 70.0); Potassium - ABG Lab 2.79 mmol/L (3.70-5.30); pH, Arterial 7.52 (7.35-7.45)
[2019-07-22 08:19] LABS: Puncture Site LRA
[2019-07-22] MEDS ORDERED: FLU VACC TS2019-20(65YR UP)/PF 180 MCG/0.5 ML SYRINGE IM ONE (09:00)
[2019-07-22] MEDS ORDERED: Prevnar 13-Val Conj/PF 0.5 ML SYRINGE IM ONE (09:00)
[2019-07-22] MEDS: Heparin 5,000 UNITS/ML VIAL SC SCH ×2 (09:08→21:17)
[2019-07-22] MEDS: Famotidine/PF 20 mg/2ml Vial SLOW IVP SCH ×2 (09:14→21:16)
[2019-07-22] MEDS: levETIRAcetam 500 mg/5 ml Oral Solution PER TUBE SCH ×2 (09:14→21:17)
[2019-07-22] MEDS: Ascorbic Acid 500 mg Chewable Tablet PER TUBE SCH (09:14)
[2019-07-22] MEDS: Isosorbide Mononitrate (ER) 30 MG TAB PO SCH ×2 (09:14→21:17)
[2019-07-22] MEDS: Amlodipine 5 MG TAB PER TUBE SCH (09:15)
[2019-07-22] MEDS: Ferrous Sulfate 325 MG TAB PO SCH (09:15)
[2019-07-22] MEDS: Carvedilol 6.25 MG TAB PER TUBE SCH ×2 (09:15→17:55)
[2019-07-22] MEDS: Minoxidil 2.5 MG TAB PO SCH (09:16)
[2019-07-22] MEDS: Famotidine 40 MG/5 ML Oral Suspension PER TUBE SCH (09:16)
[2019-07-22] MEDS: Lorazepam 2 MG/ML VIAL SLOW IVP PRN ×2 (10:08→14:37)
[2019-07-22] MEDS: cloNIDine 0.1 MG TAB PO PRN ×2 (10:08→14:37)
--- NOTE | 2019-07-22 10:15 | CON ---
DATE OF CONSULTATION: 07/22/2019 This is 35 minutes critical care time. REASON FOR CONSULTATION: Urosepsis, respiratory failure. HISTORY OF PRESENT ILLNESS: Ms. Rothman is a 73-year-old female, who was sent over from [facility], intubated after presenting there with respiratory failure, low O2 sats, fever. Her workup demonstrated pyuria. Our group has seen her several times between this hospital and the [facility]. She is currently on COVID-19 rule out status. PAST MEDICAL HISTORY: 1. intermediate patient with chronic debilitation. 2. Chronic diastolic heart failure. 3. Asthma. 4. COPD. 5. Hypothyroidism. 6. Osteoarthritis. 7. Diabetes mellitus, type 2. 8. Peptic ulcer disease. 9. Hyperlipidemia. 10. Hypertension. PAST SURGICAL HISTORY: 1. She has had a PEG tube placement. 2. Cholecystectomy. 3. Hysterectomy. FAMILY MEDICAL HISTORY: Unremarkable. SOCIAL HISTORY: She quit smoking some time in early 2018, has a history of tobacco use orally, does not consume alcohol. ALLERGIES: NONE. MEDICATIONS: These are listed under the summary section on the chart. As an outpatient, she is taking, 1. Phenytoin. 2. Ativan. 3. Minoxidil. 4. Omeprazole. 5. Isosorbide. 6. Lactulose. 7. Clonidine. 8. Levothyroxine. 9. Ascorbic acid. 10. Iron sulfate. 11. Doxazosin. 12. Carvedilol. 13. Amlodipine. 14. Furosemide. 15. Hydralazine. 16. Keppra. As an inpatient, her newer medications include, 1. Cefepime. 2. Vancomycin as well as the sedative agents that she is on. REVIEW OF SYSTEMS: Cannot be obtained as the patient is currently on mechanical ventilation. PHYSICAL EXAMINATION: VITAL SIGNS: Temperature 97.8, pulse 75, and blood pressure 186/71. Intake 1174 and output 700. HEENT: Unremarkable except for the endotracheal tube in place. NECK: No adenopathy or JVD. LUNGS: Clear anteriorly. CARDIOVASCULAR: S1 and S2 regular without audible murmur. ABDOMEN: Soft. PEG tube noted. EXTREMITIES: No clubbing, cyanosis or edema. LABORATORY DATA: White blood cell count 8.3, hematocrit 23, and platelet count 167. PH of 7.52, pCO2 of 35, and pO2 of 90, on SIMV rate 16, tidal volume 400, PEEP 5, pressure support 10, and FiO2 40%. Sodium 142, potassium 3.7, chloride 106, CO2 of 21, BUN 20, creatinine 1.0, glucose 90, and phosphorus 1.7. C-reactive protein 4.2 and procalcitonin 0.12. The COVID-19 test was pending at the time of this dictation this morning. Chest x-ray shows cardiomegaly without evidence of mass, effusion or infiltrate. ASSESSMENT: 1. The predominance of evidence would suggest the patient is suffering from urosepsis. Her oxygenation is not bad at all, so I do not think she is in decompensated heart failure. I do suspect that her COVID test will probably come back negative, although she will remain in isolation until we know that. 2. I reviewed orders on her chart. I agree with current treatment by the residents. I have adjusted her ventilator settings. I would anticipate her being intubated for at least another day or so. Job ID: [id number]
[2019-07-22] MEDS ORDERED: Sodium Phosphate 15 MMOL in Sodium Chloride 0.9% 250 ML 250 ML IVPB SCH (11:45)
[2019-07-22] MEDS: Cefepime 2 GM in Sodium Chloride 0.9% 100 ML IVPB SCH (12:19)
[2019-07-22] MEDS: Fosphenytoin Sodium 100 MG in Sodium Chloride 0.9% 50 ML IVPB SCH ×2 (13:57→21:16)
--- NOTE | 2019-07-22 14:30 | PDOC.FMACP ---
Advance Care Planning - Problem (1) Diastolic heart failure Status: Acute Code(s): I50.30 - UNSPECIFIED DIASTOLIC (CONGESTIVE) HEART FAILURE (2) Respiratory failure Status: Acute Code(s): J96.90 - RESPIRATORY FAILURE, UNSP, UNSP W HYPOXIA OR HYPERCAPNIA Qualifiers: Respiratory failure complication: hypoxia and hypercapnia (3) CKD (chronic kidney disease) stage 4, GFR 15-29 ml/min Status: Chronic Code(s): N18.4 - CHRONIC KIDNEY DISEASE, STAGE 4 (SEVERE) (4) DM type 2 (diabetes mellitus, type 2) Status: Chronic (5) HTN (hypertension) Status: Chronic Code(s): I10 - ESSENTIAL (PRIMARY) HYPERTENSION - Note Participants: family, palliative care Summary: Advanced Care Planning was discussed. The diagnosis, prognosis and goals of care were discussed. Appropriate forms and documentation to accomplish the goals of care were discussed. All questions were answered. The Palliative Care Team will be engaged to assist with completion of any outstanding forms that are needed. Visited over the phone secondary to Covid 19 precautions and no visitors in the hospital currently. Spoke to Judy Rothman patient daughter, , for over 30 minutes. We reviewed multiple morbidities and disease trajectory. Discussed decline related to disease trajectory. Ms Rothman also has tow other children johanna Rothman and Maryammanuel Rothman. Judy states that they share in decision making for their mother. Currently they wish to continue with aggressive measures, including full resuscitation. Patient currently resides at a skilled nursing, is bed or wheelchair bound and a total assist for ADL as per daughter.
[2019-07-22] MEDS ORDERED: Vancomycin HCl 1.25 GM in Sodium Chloride 0.9% 250 ML 250 ML IVPB SCH (18:00)
[2019-07-22] MEDS ORDERED: cloNIDine 0.3mg/24 Hour PATCH TD SCH (19:00)
[2019-07-22] MEDS: Doxazosin 2 MG TAB PER TUBE SCH (21:16)
[2019-07-23] MEDS: Cefepime 2 GM in Sodium Chloride 0.9% 100 ML IVPB SCH ×2 (00:29→12:41)
[2019-07-23] MEDS: Propofol 1,000 MG/100 ML VIAL IV PRN ×2 (00:30→09:25)
[2019-07-23] MEDS: Lactated Ringer's 1,000 ML IV SCH (05:46)
[2019-07-23] MEDS: hydrALAZINE 25 MG TAB PO SCH ×3 (05:51→22:25)
[2019-07-23] MEDS: Levothyroxine Sodium 25 MCG TAB PER TUBE SCH (05:51)
[2019-07-23 07:02] LABS: Actual Bicarbonate (HCO3a) 24.1 mEq/L (22-28); Base Excess (BEa) 1.4 mEq/L (-2.0 to +3.0); CO2 Tension 29.7 mmHg (35.0-45.0); Carboxyhemoglobin (COHb) 1.6 gm% (0.0-3.0); O2 Tension (PaO2) 121.6 mmHg (> 70.0); Potassium - ABG Lab 2.86 mmol/L (3.70-5.30); pH, Arterial 7.53 (7.35-7.45)
[2019-07-23 07:29] LABS: ALT (SGPT) Less than 7 U/L (8-55); AST (SGOT) 8 U/L (5-34); Albumin 2.5 g/dL (3.4-4.8); Alkaline Phosphatase 43 U/L (40-110); Anion Gap 15 mmol/L (10-20); BUN (Urea Nitrogen) 16 mg/dL (9.8-20.1); Bilirubin, Total 0.2 mg/dL (0.2-1.2); Calc. Creatinine Clearance 91 mL/min (70-130); Calcium 7.7 mg/dL (7.8-10.44); Carbon Dioxide 22 mmol/L (23-31); Chloride 106 mmol/L (98-107); Estimated GFR-MDRD 86; Globulin 3.5 g/dL (2.4-3.5); Glucose 77 mg/dL (83-110); Magnesium 1.6 mg/dL (1.6-2.6); Phosphorus 2.7 mg/dL (2.3-4.7); Potassium 3.1 mmol/L (3.5-5.1); Sodium 140 mmol/L (136-145)
[2019-07-23 07:49] LABS: Anisocytosis MODERATE=16-30 cells (100X) (0-5/hpf); Band 10 % (5-11); Eosinophils 3 % (0-10); Lymphocytes 33 % (21-51); MDiff Complete? YES; Mean Corpuscular HGB CONC 33.4 g/dL (32.0-36.0); Mean Corpuscular Hemoglobin 27.5 pg (27.0-31.0); Mean Corpuscular Volume 82.4 fL (78.0-98.0); Mean Platelet Volume 9.2 fL (7.4-10.4); Monocytes 1 % (0-10); Neutrophil 53 % (42-75); Nucleated RBC 1 % (0); Ovalocytes SLIGHT = 2-5 cells (100X) (0-1/hpf); Platelet Count 156 thou/uL (130-400); RBC Distribution Width 14.2 % (11.5-14.5); Red Blood Cell (RBC) Count 2.55 mill/uL (4.20-5.40); White Blood Cell (WBC) Count 6.3 thou/uL (4.8-10.8)
[2019-07-23 08:37] LABS: ALV-art Gradient 176.385 (0-20); Puncture Site RRA
[2019-07-23] MEDS ORDERED: Lactated Ringer's 1,000 ML IV SCH (08:54)
--- NOTE | 2019-07-23 08:56 | RAD ---
CHEST ONE VIEW: HISTORY: Followup while on ventilator. COMPARISON: 07/22/2019 FINDINGS: Endotracheal tube and nasogastric tube remain in place. An implanted loop recorder device again overl ies the medial left chest. The cardiac silhouette is enlarged. Increased opacity is again seen in the retrocardiac region at the left lung base. Mild prominence of interstitial and alveolar opacities in the left hilar region. The right lung remains clear. There is prominence of the mediastinum but this may be attributable to the technique of the exam. IMPRESSION: 1. Persistent left basilar opacity with mild interstitial and left hilar interstitial density present . Findings at the left lung base could be related to left pleural effusion and atelectasis or possibl y pneumonia. Continued followup to resolution is recommended. 2. Endotracheal tube and nasogastric tube stable in position. POS: OFF
[2019-07-23] MEDS ORDERED: Potassium Chloride 40 MEQ in Sodium Chloride 0.9% 250 ML 250 ML IVPB SCH (09:00)
[2019-07-23] MEDS: Carvedilol 6.25 MG TAB PER TUBE SCH ×2 (09:00→17:35)
[2019-07-23] MEDS: Ferrous Sulfate 325 MG TAB PO SCH (09:00)
[2019-07-23] MEDS ORDERED: Magnesium Sulfate 4 GM in Sodium Chloride 0.9% 250 ML 250 ML IVPB SCH (09:00)
[2019-07-23] MEDS: Heparin 5,000 UNITS/ML VIAL SC SCH ×2 (09:18→20:45)
[2019-07-23] MEDS: Amlodipine 5 MG TAB PER TUBE SCH (09:27)
[2019-07-23] MEDS: Ascorbic Acid 500 mg Chewable Tablet PER TUBE SCH (09:27)
[2019-07-23] MEDS: Famotidine 40 MG/5 ML Oral Suspension PER TUBE SCH (09:27)
[2019-07-23] MEDS: levETIRAcetam 500 mg/5 ml Oral Solution PER TUBE SCH ×2 (09:27→20:44)
[2019-07-23] MEDS: Isosorbide Mononitrate (ER) 30 MG TAB PO SCH ×2 (09:27→20:44)
[2019-07-23] MEDS: Fosphenytoin Sodium 100 MG in Sodium Chloride 0.9% 50 ML IVPB SCH ×3 (09:27→20:44)
[2019-07-23] MEDS: Minoxidil 2.5 MG TAB PO SCH (09:28)
--- NOTE | 2019-07-23 09:31 | PRG ---
DATE OF SERVICE: 07/23/2019 SERVICE: Pulmonary Medicine. INTERVAL HISTORY: The patient is doing fine from a respiratory standpoint. Oxygen requirements are actually improving. She has no complaints. That being said, she is not oriented. On a sedation holiday, she breathes quite comfortably on spontaneous breathing trial. That being said, her mentation is at a place where it is going to be challenging for us to know whether or not it is time for us to extubate her. Otherwise, there has been no interval change to her condition. PHYSICAL EXAMINATION: VITAL SIGNS: Afebrile currently with a T-max of 99.9. Pulse 85, blood pressure 150/44, respirations 23, saturation 100%, currently on 40% FiO2 and a PEEP of 5. GENERAL: The patient is intubated and sedated. HEENT: Normocephalic and atraumatic. Sclerae white. Conjunctivae pink. Oral mucosa is moist without lesions. LUNGS: Decent air entry without any prolonged expiratory phase or wheezing present. HEART: Normal rate, regular. ABDOMEN: Soft, nontender, nondistended. Bowel sounds are positive. MUSCULOSKELETAL: No cyanosis or clubbing. There is no pitting in the bilateral lower extremities. NEUROLOGIC: Grossly nonfocal. LABORATORY DATA: Hemoglobin 7.0, WBC 6.3. Platelets 156,000. PH 7.53, pCO2 of 29, PO2 of 121 on a FiO2 of 47%. Potassium 3.1. Basic metabolic profile is otherwise unremarkable. Troponin is 0.04. Respiratory culture is negative to date. PCR is negative for respiratory viruses. IMAGING DATA: Chest x-ray demonstrates enlarged cardiac silhouette. I cannot tell if there is pleural parenchymal disease in the retrocardiac space on the left. Endotracheal tube is roughly 6 cm above the level of jatin. The carinal angle is extraordinarily enlarged suggestive of left atrial dilation versus mediastinal lymphadenopathy. ASSESSMENT: 1. Acute hypoxic respiratory failure. 2. Urinary tract infection secondary to Escherichia coli. 3. Severe sepsis. DISCUSSION AND PLAN: We will continue to wean ventilator settings. Potassium will be replaced. Pulmonary/Critical Care will continue to follow along in this location. I will continue working on getting her negative in volume. If she does well with a spontaneous breathing trial, extubation will be considered. Critical care time: 30 minutes. Job ID: [id number] [facility]
[2019-07-23] MEDS: Famotidine/PF 20 mg/2ml Vial SLOW IVP SCH ×2 (09:44→20:44)
--- NOTE | 2019-07-23 11:35 | PDOC.FM ---
- Subjective Subjective: Intubated and sedated. Opens eyes to voice. Switched to CPAP trial earlier this morning. - Objective MAR Reviewed: Yes Vital Signs & Weight: Vital Signs (12 hours) Temp Pulse Resp BP Pulse Ox 07/23/19 10:43 87 181/87 H 07/23/19 09:27 79 07/23/19 09:00 171/114 H 07/23/19 08:00 100 07/23/19 06:55 79 07/23/19 06:00 13 07/23/19 05:51 80 171/114 H 07/23/19 05:15 81 152/70 H 07/23/19 04:00 97.3 F L 12 07/23/19 02:00 15 07/23/19 01:58 81 167/80 H 100 07/23/19 00:00 97.6 F 15 Weight Admit Weight 87.09 kg Weight 88.9 kg Most Recent Monitor Data Heart Rate from ECG 86 NIBP 163/74 NIBP BP-Mean 103 Respiration from ECG 20 SpO2 100 I&O: 07/22/19 07/23/19 07/24/19 06:59 06:59 06:59 Intake Total 1174 2298 550 Output Total 700 1230 125 Balance 474 1068 425 Result Diagrams: 07/23/19 06:34 07/23/19 06:34 Phys Exam - Physical Examination Intubated and sedated HEENT: moist MMs Neck: supple Respiratory: no wheezing Cardiovascular: RRR Gastrointestinal: soft opens eyes to voice Dx/Plan - Plan Plan: Acute hypoxic respiratory failure - Intubated 07/20, currently on CPAP trial. Possibly extubate later today. - COVID neg. RVP neg. - Procal 0.15 - Continue Vanc and Cefepime UTI - Cx pending. Prior pseudomonal UTI sensitive to Cefepime - Cont Cefepime Sepsis 2/2 Viral infection vs HCAP - See above Diabetes - SSI and hypoglycemia protocol - Accuchecks q6h Hypertension - Continue Isosorbide mononitrate, Clonidine, Carvedilol, Amlodipine, and Hydralazine. Diastolic HF - Continue medications above, and lasix. - Strict I&Os, daily wts Hypothyroidism - Continue Levothyroxine 25mcg Seizures - Continue phenytoin, lorazepam, keppra Code Status: Full PCP: Scamardo Addendum - Attending - Attending Attestation Date/Time: 07/23/19 9018 I personally evaluated the patient and discussed the management with Dr. Malave I agree with the History, Examination, Assessment and Plan documented above with any addition or exceptions noted below - Patient intubated; opens eyes. Afebrile VSS. A/P: 1) Acute hypoxic resp failure - wean as per pulmonary. 2) UTI secondary to E. coli - awaiting sensitivities; continue abx. 3) Anemia - stable; continue to monitor.
[2019-07-23] MEDS: Morphine 2 MG/ML SYRINGE SLOW IVP PRN (15:31)
[2019-07-23] MEDS: Lorazepam 2 MG/ML VIAL SLOW IVP PRN (17:35)
[2019-07-23] MEDS: Doxazosin 2 MG TAB PER TUBE SCH (20:44)
[2019-07-23] MEDS: Acetaminophen 650 MG/20.3 ML UDCUP PO PRN (22:26)
[2019-07-24] MEDS: Cefepime 2 GM in Sodium Chloride 0.9% 100 ML IVPB SCH (00:09)
[2019-07-24 03:55] LABS: ALT (SGPT) Less than 7 U/L (8-55); AST (SGOT) 12 U/L (5-34); Albumin 2.7 g/dL (3.4-4.8); Alkaline Phosphatase 44 U/L (40-110); Anion Gap 18 mmol/L (10-20); BUN (Urea Nitrogen) 14 mg/dL (9.8-20.1); Bilirubin, Total 0.3 mg/dL (0.2-1.2); Calc. Creatinine Clearance 84 mL/min (70-130); Calcium 7.8 mg/dL (7.8-10.44); Carbon Dioxide 19 mmol/L (23-31); Chloride 109 mmol/L (98-107); Estimated GFR-MDRD 79; Globulin 3.7 g/dL (2.4-3.5); Glucose 77 mg/dL (83-110); Magnesium 2.3 mg/dL (1.6-2.6); Phosphorus 2.5 mg/dL (2.3-4.7); Potassium 3.8 mmol/L (3.5-5.1); Protein, Total 6.4 g/dL (6.0-8.3); Sodium 142 mmol/L (136-145)
[2019-07-24 03:56] LABS: Band 4 % (5-11); Elliptocytes SLIGHT = 2-5 cells (100X) (0-1/hpf); Eosinophils 2 % (0-10); Hemoglobin 6.4 g/dL (12.0-16.0); Lymphocytes 26 % (21-51); MDiff Complete? YES; Mean Corpuscular HGB CONC 32.1 g/dL (32.0-36.0); Mean Corpuscular Hemoglobin 26.5 pg (27.0-31.0); Mean Corpuscular Volume 82.6 fL (78.0-98.0); Mean Platelet Volume 8.7 fL (7.4-10.4); Monocytes 7 % (0-10); Myelocyte 1 % (0-0); Neutrophil 60 % (42-75); Platelet Count 154 thou/uL (130-400); RBC Distribution Width 14.5 % (11.5-14.5); White Blood Cell (WBC) Count 9.7 thou/uL (4.8-10.8)
[2019-07-24] MEDS: hydrALAZINE 25 MG TAB PO SCH ×3 (05:40→21:19)
[2019-07-24] MEDS: Levothyroxine Sodium 25 MCG TAB PER TUBE SCH (05:41)
--- NOTE | 2019-07-24 06:20 | PDOC.FM ---
- Subjective Subjective: More alert this morning. Per pulm she is likely to need trach, she has had one in the past. Still has PEG tube. - Objective MAR Reviewed: Yes Vital Signs & Weight: Vital Signs (12 hours) Temp Pulse Resp BP Pulse Ox 07/24/19 06:00 15 07/24/19 05:40 91 172/68 H 07/24/19 04:00 99.8 F H 14 07/24/19 02:27 91 151/71 H 07/24/19 02:00 17 07/24/19 00:00 99.8 F H 18 07/23/19 22:25 99 172/69 H 07/23/19 22:20 100 172/69 H 07/23/19 22:00 16 07/23/19 20:00 99.5 F 20 100 07/23/19 18:26 84 161/68 H Weight Admit Weight 87.09 kg Weight 90.3 kg Most Recent Monitor Data Heart Rate from ECG 87 NIBP 166/62 NIBP BP-Mean 96 Respiration from ECG 15 SpO2 99 I&O: 07/22/19 07/23/19 07/24/19 06:59 06:59 06:59 Intake Total 1174 2298 1486 Output Total 700 1230 795 Balance 474 1068 691 Result Diagrams: 07/24/19 03:23 07/24/19 03:23 Phys Exam - Physical Examination opens eyes spontaneously. Intubated Respiratory: clear to auscultation bilateral Cardiovascular: RRR Gastrointestinal: soft, positive bowel sounds squeezes hands bilaterally Dx/Plan - Plan Plan: Acute hypoxic respiratory failure - Intubated 07/20, likely to need trach. Will initiate tube feeds. - COVID neg. RVP neg. - Continue Vanc and Cefepime UTI - Cx pending. Prior pseudomonal UTI sensitive to Cefepime - Cont Cefepime Sepsis 2/2 Viral infection vs HCAP - See above Diabetes - SSI and hypoglycemia protocol - Accuchecks q6h Hypertension - Continue Isosorbide mononitrate, Clonidine, Carvedilol, Amlodipine, and Hydralazine. Diastolic HF - Continue medications above, and lasix. - Strict I&Os, daily wts Hypothyroidism - Continue Levothyroxine 25mcg Seizures - Continue phenytoin, lorazepam, keppra Code Status: Full GI ppx: Pepcid PCP: Marybeth Addendum - Attending - Attending Attestation Date/Time: 07/24/19 5617 I personally evaluated the patient and discussed the management with Dr. Malave I agree with the History, Examination, Assessment and Plan documented above with any addition or exceptions noted below- Patient intubated; more awake/ biting on tube. Afebrile VSS. A/P: 1) Acute hypoxic resp failure- not weanable at this time and pulmonary believes a trach may be necessary. Plans as per pulmonary. 2) Anemia - will transfuse 1u pRBCs; recheck in AM 3) Sepsis- urine culture with multi-drug resistant E. coli; will adjust antibiotics.
[2019-07-24] MEDS: Amlodipine 5 MG TAB PER TUBE SCH (08:28)
[2019-07-24] MEDS: Isosorbide Mononitrate (ER) 30 MG TAB PO SCH ×2 (08:28→21:19)
[2019-07-24] MEDS: Ascorbic Acid 500 mg Chewable Tablet PER TUBE SCH (08:28)
[2019-07-24] MEDS: Minoxidil 2.5 MG TAB PO SCH (08:28)
[2019-07-24] MEDS: Carvedilol 6.25 MG TAB PER TUBE SCH ×2 (08:29→17:07)
[2019-07-24] MEDS: Ferrous Sulfate 325 MG TAB PO SCH (08:29)
[2019-07-24] MEDS: levETIRAcetam 500 mg/5 ml Oral Solution PER TUBE SCH ×2 (09:44→21:18)
[2019-07-24] MEDS: Fosphenytoin Sodium 100 MG in Sodium Chloride 0.9% 50 ML IVPB SCH ×3 (09:49→21:18)
[2019-07-24] MEDS: Famotidine/PF 20 mg/2ml Vial SLOW IVP SCH ×3 (09:50→21:18)
[2019-07-24] MEDS: Famotidine 40 MG/5 ML Oral Suspension PER TUBE SCH ×3 (09:51→10:09)
[2019-07-24] MEDS: Heparin 5,000 UNITS/ML VIAL SC SCH ×2 (10:06→21:18)
[2019-07-24] MEDS ORDERED: Furosemide 40 MG/4 ML VIAL SLOW IVP SCH (11:00)
--- NOTE | 2019-07-24 11:09 | PRG ---
DATE OF SERVICE: 07/24/2019 SERVICE: Pulmonary Medicine. INTERVAL HISTORY: The patient is doing fine from respiratory standpoint. Breathing comfortably. No complaints of chest discomfort, fevers, chills, nausea, or vomiting. She is on mechanical ventilator with no difficulties there. Hemoglobin has dropped off a little bit, she is being prepared for a unit of blood. Otherwise, nursing reports no overnight events. PHYSICAL EXAMINATION: VITAL SIGNS: Afebrile with T-max 99.8; pulse 94; blood pressure 153/79; respirations 25; saturation 96%, currently on 27% FiO2. GENERAL: The patient is intubated. She is under the influence of a little sedation. HEENT: Normocephalic and atraumatic. Sclerae white. Conjunctivae pink. Oral mucosa is moist without lesions. LUNGS: Decent air entry. No prolonged expiratory phase or wheezing is appreciated. HEART: Normal rate and regular. ABDOMEN: Soft, nontender, nondistended. Bowel sounds are positive. MUSCULOSKELETAL: No cyanosis or clubbing. There is diffuse pitting throughout. NEUROLOGIC: Grossly nonfocal. LABORATORY DATA: WBC 9.7, hemoglobin 6.4, platelets 154,000. Basic metabolic profile is unremarkable. Creatinine 0.86 is roughly stable. Liver function studies are unremarkable. Troponin 0.04. Magnesium 2.3, phosphorus 2.5. ASSESSMENT: 1. Acute hypoxic respiratory failure. 2. Urinary tract infection secondary to Escherichia coli. 3. Severe sepsis, resolved. DISCUSSION AND PLAN: We will give the patient a dose of Lasix if she is significantly volume up. IV fluids will be KVO'd. We will put her on a spontaneous breathing trial later. If she meets criteria, extubation will be considered. These episodes are going to recur with increasing frequency and severity as the patient has very advanced debility and is not capable of making any functional recovery. If the family wants to keep her as a full code, tracheostomy will need to be considered in the near future. Critical care time: 30 minutes. Job ID: [id number] [facility]TD[facility]
[2019-07-24] MEDS: Morphine 2 MG/ML SYRINGE SLOW IVP PRN (12:48)
[2019-07-24] MEDS: Acetaminophen 650 MG/20.3 ML UDCUP PO PRN ×2 (13:05→21:18)
[2019-07-24] MEDS ORDERED: cefOXitin 2 GM in Sodium Chloride 0.9% 100 ML IVPB SCH (14:00)
[2019-07-24] MEDS ORDERED: Meropenem 1 GM in Sodium Chloride 0.9% 100 ML IVPB SCH (14:00)
[2019-07-24] MEDS: MEROPENEM 1 GM/50 ML 1 GM in Premix Bag 1 BAG IVPB SCH ×2 (14:01→21:19)
[2019-07-24] MEDS ORDERED: Pancrelipase DR 12000 1 CAP FS PRN (18:06)
[2019-07-24] MEDS ORDERED: Sodium Bicarbonate Tab 325 MG TAB PER TUBE PRN (18:06)
[2019-07-24] MEDS ORDERED: hydrALAZINE 20 MG/ML VIAL SLOW IVP PRN (18:42)
[2019-07-24] MEDS: Lorazepam 2 MG/ML VIAL SLOW IVP PRN (18:50)
[2019-07-24] MEDS: Doxazosin 2 MG TAB PER TUBE SCH (21:19)
[2019-07-25] MEDS: Morphine 2 MG/ML SYRINGE SLOW IVP PRN (03:40)
[2019-07-25 06:05] LABS: Anion Gap 16 mmol/L (10-20); BUN (Urea Nitrogen) 16 mg/dL (9.8-20.1); Calc. Creatinine Clearance 92 mL/min (70-130); Calcium 7.8 mg/dL (7.8-10.44); Carbon Dioxide 21 mmol/L (23-31); Chloride 108 mmol/L (98-107); Estimated GFR-MDRD 86; Glucose 104 mg/dL (83-110); Sodium 142 mmol/L (136-145)
[2019-07-25] MEDS: hydrALAZINE 25 MG TAB PO SCH ×3 (06:07→21:05)
[2019-07-25 06:08] LABS: Potassium 2.9 mmol/L (3.5-5.1)
[2019-07-25] MEDS: Levothyroxine Sodium 25 MCG TAB PER TUBE SCH (06:08)
[2019-07-25] MEDS: MEROPENEM 1 GM/50 ML 1 GM in Premix Bag 1 BAG IVPB SCH ×3 (06:08→21:05)
[2019-07-25 06:09] LABS: Band 7 % (5-11); Elliptocytes SLIGHT = 2-5 cells (100X) (0-1/hpf); Eosinophils 6 % (0-10); Hemoglobin 7.6 g/dL (12.0-16.0); Lymphocytes 19 % (21-51); MDiff Complete? YES; Mean Corpuscular HGB CONC 33.9 g/dL (32.0-36.0); Mean Corpuscular Hemoglobin 28.2 pg (27.0-31.0); Mean Corpuscular Volume 83.2 fL (78.0-98.0); Mean Platelet Volume 12.2 fL (7.4-10.4); Monocytes 3 % (0-10); Neutrophil 65 % (42-75); Platelet Count 193 thou/uL (130-400); Platelet Morphology Comment Appears Adequate; RBC Distribution Width 14.4 % (11.5-14.5); Red Blood Cell (RBC) Count 2.68 mill/uL (4.20-5.40); White Blood Cell (WBC) Count 6.4 thou/uL (4.8-10.8)
--- NOTE | 2019-07-25 07:05 | PDOC.FM ---
- Subjective Subjective: pt sedated in bed, not responsive to verbal command. responds to pain. no acute distress - Objective Vital Signs & Weight: Vital Signs (12 hours) Temp Pulse Resp BP Pulse Ox 07/25/19 06:07 83 106/47 L 07/25/19 06:00 28 H 07/25/19 04:00 98.9 F 13 07/25/19 02:42 94 143/62 H 07/25/19 02:00 24 H 07/25/19 00:00 98.7 F 13 07/24/19 22:24 98 155/71 H 07/24/19 22:00 17 07/24/19 21:19 92 172/72 H 07/24/19 20:00 26 H 07/24/19 19:30 96 07/24/19 19:00 100.1 F H 07/24/19 18:58 89 234/94 H Weight Admit Weight 87.09 kg Weight 90 kg Most Recent Monitor Data Heart Rate from ECG 71 NIBP 106/47 NIBP BP-Mean 66 Respiration from ECG 16 SpO2 98 I&O: 07/23/19 07/24/19 07/25/19 06:59 06:59 06:59 Intake Total 2298 1486 1624 Output Total 5488 074 6419 Balance 1060 150 -776 Result Diagrams: 07/25/19 05:25 07/25/19 05:25 Phys Exam - Physical Examination Constitutional: NAD HEENT: moist MMs Neck: no JVD Respiratory: clear to auscultation bilateral Cardiovascular: no significant murmur Gastrointestinal: no distention Musculoskeletal: pulses present, edema present Neurological: moves all 4 limbs Psychiatric: normal affect Skin: no rash Dx/Plan (1) HTN (hypertension) Code(s): I10 - ESSENTIAL (PRIMARY) HYPERTENSION Status: Chronic (2) Hypothyroid Code(s): E03.9 - HYPOTHYROIDISM, UNSPECIFIED Status: Chronic (3) Acute on chronic diastolic heart failure Code(s): I50.33 - ACUTE ON CHRONIC DIASTOLIC (CONGESTIVE) HEART FAILURE Status : Resolved (4) Acute respiratory failure with hypoxia Code(s): J96.01 - ACUTE RESPIRATORY FAILURE WITH HYPOXIA Status: Resolved (5) Hypokalemia Code(s): E87.6 - HYPOKALEMIA Status: Resolved - Plan Plan: Acute hypoxic respiratory failure - Intubated 07/20, likely to need trach. tube feeds, ventilator sedation protocol - COVID neg. RVP neg. - Continue merem sepsis 05/29 UTI - MDR E. coli, sensitive to merem DMII - SSI and hypoglycemia protocol - Accuchecks q6h Hypertension - Continue Isosorbide mononitrate, Clonidine, Carvedilol, Amlodipine, and Hydralazine. Diastolic HF - Continue medications above, and lasix. 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 Thornton. I agree with the History, Examination, Assessment and Plan documented above with any addition or exceptions noted below. Patient overall stable. H/H stable. Hypokalemic and will replete. Continue meropenem for MDR UTI. Vent mgmt per pulm. She has been afebrile. Slow to wean last time and anticipate this may also be prolonged course.
[2019-07-25] MEDS ORDERED: Potassium Chloride 40 MEQ in Sodium Chloride 0.9% 250 ML 250 ML IVPB SCH (07:15)
[2019-07-25] MEDS: Carvedilol 6.25 MG TAB PER TUBE SCH ×2 (08:13→17:13)
[2019-07-25] MEDS: Ferrous Sulfate 325 MG TAB PO SCH (08:15)
[2019-07-25] MEDS: Famotidine 40 MG/5 ML Oral Suspension PER TUBE SCH ×2 (09:10→09:16)
[2019-07-25] MEDS: Minoxidil 2.5 MG TAB PO SCH (09:10)
[2019-07-25] MEDS: Ascorbic Acid 500 mg Chewable Tablet PER TUBE SCH (09:10)
[2019-07-25] MEDS: Isosorbide Mononitrate (ER) 30 MG TAB PO SCH ×2 (09:10→21:05)
[2019-07-25] MEDS: Amlodipine 5 MG TAB PER TUBE SCH (09:10)
[2019-07-25] MEDS: Famotidine/PF 20 mg/2ml Vial SLOW IVP SCH (09:12)
[2019-07-25] MEDS: levETIRAcetam 500 mg/5 ml Oral Solution PER TUBE SCH ×2 (09:13→21:05)
[2019-07-25] MEDS ORDERED: Furosemide 20 MG/2 ML VIAL SLOW IVP SCH (09:15)
[2019-07-25] MEDS: Heparin 5,000 UNITS/ML VIAL SC SCH ×2 (09:17→21:06)
[2019-07-25] MEDS: Fosphenytoin Sodium 100 MG in Sodium Chloride 0.9% 50 ML IVPB SCH ×3 (11:00→21:05)
[2019-07-25] MEDS: Lorazepam 2 MG/ML VIAL SLOW IVP PRN (11:29)
--- NOTE | 2019-07-25 17:45 | PQF ---
DATE: 07-25-19 ATTN: DR. JARRELL PERAZA Please exercise your independent, professional judgment in responding to the clarification form. Clinical indicators are provided on the bottom of this form for your review Diagnosis: SEVERE SEPSIS Present on Admission (POA): [ x] Yes [ ] No [ ] Unable to determine For continuity of documentation, please document condition throughout progress notes and discharge summary. Thank You. CLINICAL INDICATORS - SIGNS / SYMPTOMS / LABS/ RESULTS AND LOCATION IN MR: H&P 07-21-19: ACUTE RESPIRATORY FAILURE, ACUTE DIASTOLIC HEART FAILURE, CKD4 , HTN, ACUTE UTI, ACUTE SIRS PN DR. BETHEA 07-22-19: ACUTE HYPOXIC RESPIRATORY FAILURE 2/2 COPD EXACERBATION CONSULT 07-23-19: SEVERE SEPSIS BANDS: 07-24-19: 4% CRP: 07-22-19: 4.26 TEMP: 07-21-19: 99.9 07-24-19: 99-.8, 99.8, 100.1 RR: 07-24-19: 25, 24, 26 07-25-19: 24, 28, 26 RISK FACTORS / RESULTS AND LOCATION IN MR: H&P 07-21-19: ACUTE RESPIRATORY FAILURE, ACUTE DIASTOLIC HEART FAILURE, CKD4 , HTN, ACUTE UTI, ACUTE SIRS PN DR. BETHEA 07-22-19: ACUTE HYPOXIC RESPIRATORY FAILURE 2/2 COPD EXACERBATION TREATMENT / RESULTS AND LOCATION IN MR: 07-25-19 : MEROPENEM IV (This form is maintained as a part of the permanent medical record) 2014 [employer], [employer]. All Rights Reserved [facility]
[2019-07-25] MEDS ORDERED: Famotidine 40 MG/5 ML Oral Suspension PER TUBE SCH (21:00)
[2019-07-25] MEDS: Famotidine 20 MG TAB PER TUBE SCH (21:05)
[2019-07-25] MEDS: Doxazosin 2 MG TAB PER TUBE SCH (21:05)
[2019-07-26] MEDS: Morphine 2 MG/ML SYRINGE SLOW IVP PRN ×2 (00:38→18:04)
[2019-07-26] MEDS: Lorazepam 2 MG/ML VIAL SLOW IVP PRN ×2 (02:17→22:33)
[2019-07-26 05:42] LABS: Hemoglobin 7.2 g/dL (12.0-16.0); Mean Corpuscular HGB CONC 33.7 g/dL (32.0-36.0); Mean Corpuscular Hemoglobin 28.3 pg (27.0-31.0); Mean Corpuscular Volume 83.9 fL (78.0-98.0); Mean Platelet Volume 12.3 fL (7.4-10.4); Platelet Count 196 thou/uL (130-400); RBC Distribution Width 14.5 % (11.5-14.5); Red Blood Cell (RBC) Count 2.55 mill/uL (4.20-5.40); White Blood Cell (WBC) Count 5.3 thou/uL (4.8-10.8)
[2019-07-26] MEDS: Levothyroxine Sodium 25 MCG TAB PER TUBE SCH (05:53)
[2019-07-26] MEDS: MEROPENEM 1 GM/50 ML 1 GM in Premix Bag 1 BAG IVPB SCH ×3 (05:53→22:57)
[2019-07-26] MEDS: hydrALAZINE 25 MG TAB PO SCH ×3 (05:53→22:26)
[2019-07-26 05:58] LABS: Anion Gap 12 mmol/L (10-20); BUN (Urea Nitrogen) 22 mg/dL (9.8-20.1); Calc. Creatinine Clearance 91 mL/min (70-130); Calcium 7.8 mg/dL (7.8-10.44); Carbon Dioxide 25 mmol/L (23-31); Chloride 109 mmol/L (98-107); Estimated GFR-MDRD 86; Glucose 96 mg/dL (83-110); Potassium 3.2 mmol/L (3.5-5.1); Sodium 143 mmol/L (136-145)
[2019-07-26 06:01] LABS: Band 6 % (5-11); Elliptocytes SLIGHT = 2-5 cells (100X) (0-1/hpf); Eosinophils 4 % (0-10); Large Platelets SLIGHT; Lymphocytes 24 % (21-51); MDiff Complete? YES; Monocytes 7 % (0-10); Neutrophil 59 % (42-75); Platelet Morphology Comment Appears Adequate; Schistocytes SLIGHT = 2-5 cells (100X) (0-1/hpf)
--- NOTE | 2019-07-26 06:57 | PDOC.FM ---
- Subjective Subjective: pt intubated and sedated, minimal response to verbal/painful stimuli. no acute distress - Objective Vital Signs & Weight: Vital Signs (12 hours) Temp Pulse Resp BP Pulse Ox 07/26/19 06:00 17 07/26/19 05:53 74 120/47 L 07/26/19 04:00 98.8 F 13 07/26/19 02:20 77 07/26/19 02:00 25 H 07/26/19 00:31 86 07/26/19 00:00 98.7 F 17 07/25/19 23:05 81 07/25/19 21:05 84 149/61 H 07/25/19 20:00 16 07/25/19 19:46 76 07/25/19 19:30 96 07/25/19 19:00 99.0 F Weight Admit Weight 87.09 kg Weight 89.6 kg Most Recent Monitor Data Heart Rate from ECG 82 NIBP 149/67 NIBP BP-Mean 94 Respiration from ECG 18 SpO2 100 I&O: 07/24/19 07/25/19 07/26/19 06:59 06:59 06:59 Intake Total 1486 1624 2637 Output Total 795 2360 1250 Balance 691 -378 3947 Result Diagrams: 07/26/19 05:01 07/26/19 05:01 Phys Exam - Physical Examination Constitutional: NAD HEENT: moist MMs Neck: no JVD Respiratory: clear to auscultation bilateral Cardiovascular: no significant murmur Gastrointestinal: soft, non-tender Musculoskeletal: pulses present Neurological: moves all 4 limbs Skin: no rash Dx/Plan (1) HTN (hypertension) Code(s): I10 - ESSENTIAL (PRIMARY) HYPERTENSION Status: Chronic (2) Hypothyroid Code(s): E03.9 - HYPOTHYROIDISM, UNSPECIFIED Status: Chronic (3) Acute on chronic diastolic heart failure Code(s): I50.33 - ACUTE ON CHRONIC DIASTOLIC (CONGESTIVE) HEART FAILURE Status : Resolved (4) Acute respiratory failure with hypoxia Code(s): J96.01 - ACUTE RESPIRATORY FAILURE WITH HYPOXIA Status: Resolved (5) Hypokalemia Code(s): E87.6 - HYPOKALEMIA Status: Resolved - Plan Plan: Acute hypoxic respiratory failure - Intubated 07/20, likely to need trach. tube feeds, ventilator sedation protocol - COVID neg. RVP neg. - attempt to wean vent today sepsis 2/2 UTI - MDR E. coli, sensitive to merem DMII - SSI and hypoglycemia protocol - Accuchecks q6h Hypertension - Continue Isosorbide mononitrate, Clonidine, Carvedilol, Amlodipine, and Hydralazine. Diastolic HF - Continue medications above. - Strict I&Os, daily wts - diurese as needed Hypothyroidism - Continue Levothyroxine 25mcg Seizures - Continue phenytoin, lorazepam, keppra Code Status: Full GI ppx: Pepcid PCP: Marybeth dispo: still fluid positive, consider further diuresis today Addendum - Attending - Attending Attestation Date/Time: 07/26/19 3840 I personally evaluated the patient and discussed the management with Dr. Thornton. I agree with the History, Examination, Assessment and Plan documented above with any addition or exceptions noted below.
[2019-07-26] MEDS ORDERED: Potassium Chloride 40 MEQ in Sodium Chloride 0.9% 250 ML 250 ML IVPB SCH (07:00)
[2019-07-26] MEDS: Famotidine 20 MG TAB PER TUBE SCH ×2 (08:28→20:18)
[2019-07-26] MEDS: Minoxidil 2.5 MG TAB PO SCH (08:28)
[2019-07-26] MEDS: Amlodipine 5 MG TAB PER TUBE SCH (08:28)
[2019-07-26] MEDS: Ascorbic Acid 500 mg Chewable Tablet PER TUBE SCH (08:28)
[2019-07-26] MEDS: Isosorbide Mononitrate (ER) 30 MG TAB PO SCH ×2 (08:28→20:19)
[2019-07-26] MEDS: Carvedilol 6.25 MG TAB PER TUBE SCH ×2 (08:29→17:08)
[2019-07-26] MEDS: levETIRAcetam 500 mg/5 ml Oral Solution PER TUBE SCH ×2 (08:31→20:19)
[2019-07-26] MEDS: Fosphenytoin Sodium 100 MG in Sodium Chloride 0.9% 50 ML IVPB SCH ×3 (08:33→20:19)
[2019-07-26] MEDS: Ferrous Sulfate 325 MG TAB PO SCH (09:24)
--- NOTE | 2019-07-26 09:55 | PRG ---
DATE OF SERVICE: 07/26/2019 SUBJECTIVE: She has been on CPAP now for 24 hours, doing well. Family is to make a decision, they trach and a PEG or comfort care. Palliative care in the process of discussing the options. OBJECTIVE: VITAL SIGNS: Otherwise, she has a blood pressure 129/47, pulse 79, respirations 18, and sats 90%. CHEST: Bilateral rhonchi. CARDIAC: Normal S1 and S2. No gallops. ABDOMEN: No masses. LABORATORY DATA: White count 5000, H and H 7 and 21, and platelet count is normal. Lytes are normal. Last chest x-ray showed respiratory failure, severe deconditioning, previous CVA, diastolic dysfunction. PLAN: Once we have a final decision, we will probably wean and extubate. Otherwise, continue on home medication. PT, supportive care. One-half hour of critical time. Job ID: [id number]
[2019-07-26] MEDS ORDERED: Furosemide 40 MG/4 ML VIAL SLOW IVP SCH (10:15)
[2019-07-26] MEDS: Heparin 5,000 UNITS/ML VIAL SC SCH ×2 (14:36→20:18)
[2019-07-26] MEDS: Doxazosin 2 MG TAB PER TUBE SCH (20:18)
[2019-07-27 05:12] LABS: Anion Gap 9 mmol/L (10-20); BUN (Urea Nitrogen) 24 mg/dL (9.8-20.1); Calc. Creatinine Clearance 95 mL/min (70-130); Calcium 8.1 mg/dL (7.8-10.44); Carbon Dioxide 29 mmol/L (23-31); Chloride 110 mmol/L (98-107); Estimated GFR-MDRD 89; Glucose 99 mg/dL (83-110); Potassium 3.1 mmol/L (3.5-5.1); Sodium 145 mmol/L (136-145)
[2019-07-27] MEDS: Levothyroxine Sodium 25 MCG TAB PER TUBE SCH (05:25)
[2019-07-27 05:47] LABS: Band 6 % (5-11); Hemoglobin 7.2 g/dL (12.0-16.0); Lymphocytes 20 % (21-51); MDiff Complete? YES; Mean Corpuscular HGB CONC 32.6 g/dL (32.0-36.0); Mean Corpuscular Hemoglobin 27.6 pg (27.0-31.0); Mean Corpuscular Volume 84.7 fL (78.0-98.0); Mean Platelet Volume 11.8 fL (7.4-10.4); Monocytes 16 % (0-10); Neutrophil 58 % (42-75); Platelet Count 222 thou/uL (130-400); RBC Distribution Width 14.9 % (11.5-14.5); Red Blood Cell (RBC) Count 2.59 mill/uL (4.20-5.40); White Blood Cell (WBC) Count 5.8 thou/uL (4.8-10.8)
[2019-07-27] MEDS: hydrALAZINE 25 MG TAB PO SCH ×3 (06:00→21:38)
[2019-07-27] MEDS: MEROPENEM 1 GM/50 ML 1 GM in Premix Bag 1 BAG IVPB SCH (06:27)
[2019-07-27] MEDS ORDERED: CCU Electrolyte Replacement 1 EACH FS ONE (06:45)
--- NOTE | 2019-07-27 06:49 | PDOC.FM ---
- Subjective Subjective: pt remains intubated, responsive to verbal stimuli. spontaneous breaths - Objective Vital Signs & Weight: Vital Signs (12 hours) Temp Pulse Resp BP Pulse Ox 07/27/19 06:00 11 L 07/27/19 04:00 99.2 F 11 L 07/27/19 03:00 77 07/27/19 02:00 19 07/27/19 01:17 80 19 97 07/27/19 01:15 82 07/27/19 00:00 99.2 F 12 07/26/19 22:26 82 150/66 H 07/26/19 22:01 82 07/26/19 22:00 19 07/26/19 20:00 17 98 07/26/19 19:00 99.1 F Weight Admit Weight 87.09 kg Weight 89 kg Most Recent Monitor Data Heart Rate from ECG 77 NIBP 129/54 NIBP BP-Mean 79 Respiration from ECG 11 SpO2 100 I&O: 07/25/19 07/26/19 07/27/19 06:59 06:59 06:59 Intake Total 1624 2637 2231 Output Total 2360 1250 1262 Balance -736 1387 969 Result Diagrams: 07/27/19 04:15 07/27/19 04:15 Phys Exam - Physical Examination Constitutional: NAD HEENT: moist MMs Neck: no JVD transmitted UA sounds Cardiovascular: RRR, no significant murmur Gastrointestinal: soft, no distention Musculoskeletal: pulses present, edema present Neurological: moves all 4 limbs Psychiatric: normal affect Skin: no rash Dx/Plan (1) HTN (hypertension) Code(s): I10 - ESSENTIAL (PRIMARY) HYPERTENSION Status: Chronic (2) Hypothyroid Code(s): E03.9 - HYPOTHYROIDISM, UNSPECIFIED Status: Chronic (3) Acute on chronic diastolic heart failure Code(s): I50.33 - ACUTE ON CHRONIC DIASTOLIC (CONGESTIVE) HEART FAILURE Status : Resolved (4) Acute respiratory failure with hypoxia Code(s): J96.01 - ACUTE RESPIRATORY FAILURE WITH HYPOXIA Status: Resolved (5) Hypokalemia Code(s): E87.6 - HYPOKALEMIA Status: Resolved - Plan Plan: Acute hypoxic respiratory failure - Intubated 07/20, tube feeds, ventilator sedation protocol - COVID neg. RVP neg. - pc discussing trach vs compassionate extubation w/ family sepsis 2/2 UTI - MDR E. coli, sensitive to merem - merem for a total of 7 days DMII - SSI and hypoglycemia protocol - Accuchecks q6h Hypertension - Continue Isosorbide mononitrate, Clonidine, Carvedilol, Amlodipine, and Hydralazine. Diastolic HF - Continue medications above. - Strict I&Os, daily wts - diurese as needed Hypothyroidism - Continue Levothyroxine 25mcg Seizures - Continue phenytoin, lorazepam, keppra Code Status: Full GI ppx: Pepcid PCP: Marybeth dispo: still fluid positive, consider further diuresis today Addendum - Attending - Attending Attestation Date/Time: 07/27/19 2424 I personally evaluated the patient and discussed the management with Dr. Thornton. I agree with the History, Examination, Assessment and Plan documented above with any addition or exceptions noted below. Patient stable. Family plans for compassionate extubation later today. Hospice services.
[2019-07-27] MEDS ORDERED: Potassium Chloride 40 MEQ in Sodium Chloride 0.9% 250 ML 250 ML IVPB SCH (07:00)
[2019-07-27] MEDS ORDERED: Potassium Chloride 40 MEQ in Premix Bag 1 BAG IVPB PRN (07:13)
[2019-07-27] MEDS ORDERED: Magnesium Oxide 400 MG TAB PO PRN ×2 (07:13)
[2019-07-27] MEDS ORDERED: PHOS-NAK 1 PKT PACK PO PRN ×2 (07:13)
[2019-07-27] MEDS ORDERED: Potassium Chloride 40 MEQ in Sodium Chloride 0.9% 250 ML 250 ML IVPB PRN (07:13)
[2019-07-27] MEDS ORDERED: Potassium Phosphate 12 MMOL in Sodium Chloride 0.9% 250 ML 250 ML IV PRN (07:13)
[2019-07-27] MEDS ORDERED: CCU ELECTROLYTE REPLACEMENT PROTOCOL FS PRN (07:13)
[2019-07-27] MEDS ORDERED: Magnesium 2 GM/50 ML 2 GM in Premix Bag 1 BAG IVPB PRN (07:13)
[2019-07-27] MEDS ORDERED: Potassium Phosphate 15 MMOL in Sodium Chloride 0.9% 250 ML 250 ML IV PRN (07:13)
[2019-07-27] MEDS ORDERED: Potassium Phosphate 9 MMOL in Sodium Chloride 0.9% 100 ML IVPB PRN (07:13)
[2019-07-27] MEDS ORDERED: Potassium Chloride 20 MEQ TAB PO PRN (07:13)
[2019-07-27] MEDS: Minoxidil 2.5 MG TAB PO SCH (08:05)
[2019-07-27] MEDS: Amlodipine 5 MG TAB PER TUBE SCH (08:05)
[2019-07-27] MEDS: Isosorbide Mononitrate (ER) 30 MG TAB PO SCH ×2 (08:06→21:40)
[2019-07-27] MEDS: Famotidine 20 MG TAB PER TUBE SCH ×2 (08:08→21:38)
[2019-07-27] MEDS: Ascorbic Acid 500 mg Chewable Tablet PER TUBE SCH (08:08)
[2019-07-27] MEDS: Heparin 5,000 UNITS/ML VIAL SC SCH ×2 (08:08→21:40)
[2019-07-27] MEDS: Carvedilol 6.25 MG TAB PER TUBE SCH ×2 (08:08→17:04)
[2019-07-27] MEDS: levETIRAcetam 500 mg/5 ml Oral Solution PER TUBE SCH ×2 (08:12→21:40)
[2019-07-27] MEDS: Fosphenytoin Sodium 100 MG in Sodium Chloride 0.9% 50 ML IVPB SCH ×3 (08:12→21:36)
[2019-07-27] MEDS ORDERED: Scopolamine 1.5 mg/72 hour Patch TOP SCH ×2 (09:00→10:00)
--- NOTE | 2019-07-27 09:15 | PRG ---
DATE OF SERVICE: 07/27/2019 OBJECTIVE: GENERAL: This morning, she is awake, responsive, appears to be in no distress. Still on a T-tube. VITAL SIGNS: Pulse 74, blood pressure 130/50, respirations 18, saturations 100%. CHEST: Decreased breath sounds and wheezing. CARDIAC: Normal S1, S2. ABDOMEN: No masses. LABORATORY DATA: Unremarkable. ASSESSMENT: Respiratory failure, retained secretions, cerebrovascular accident, morbid obesity, severe deconditioning. PLAN: We are going to probably extubate her if family agrees and comfort care thereafter. She is still on antibiotics at this stage, I am not so sure what you are treating. Probably deescalate. One-half hour of critical time. Job ID: [id number]
[2019-07-27] MEDS: Furosemide 20 MG/2 ML VIAL SLOW IVP SCH (09:58)
[2019-07-27] MEDS: Doxazosin 2 MG TAB PER TUBE SCH (21:37)
[2019-07-28] MEDS: hydrALAZINE 25 MG TAB PO SCH ×3 (05:27→21:03)
[2019-07-28] MEDS: Levothyroxine Sodium 25 MCG TAB PER TUBE SCH (05:28)
--- NOTE | 2019-07-28 07:10 | PDOC.FM ---
- Subjective Subjective: pt resting comfortably in bed, not agitated, AOx0. - Objective Vital Signs & Weight: Vital Signs (12 hours) Temp Pulse Resp BP BP Pulse Ox 07/28/19 05:27 90 191/80 H 07/28/19 04:42 98.4 F 90 18 191/80 H 91 L 07/28/19 00:36 98.4 F 92 18 174/82 H 97 07/27/19 21:38 87 173/79 H 07/27/19 20:00 100 07/27/19 19:23 98.3 F 87 18 173/79 H 96 Weight Admit Weight 87.09 kg Weight 96.19 kg Most Recent Monitor Data Heart Rate from ECG 85 NIBP 158/66 NIBP BP-Mean 96 Respiration from ECG 15 SpO2 94 I&O: 07/27/19 07/28/19 07/29/19 06:59 06:59 06:59 Intake Total 2231 1024 Output Total 1262 1010 Balance 969 14 Result Diagrams: 07/28/19 07:45 07/28/19 07:45 Phys Exam - Physical Examination Constitutional: NAD HEENT: moist MMs Neck: no JVD Respiratory: clear to auscultation bilateral Cardiovascular: RRR, no significant murmur Gastrointestinal: soft, no distention Musculoskeletal: edema present Neurological: moves all 4 limbs Psychiatric: normal affect Skin: no rash Dx/Plan (1) HTN (hypertension) Code(s): I10 - ESSENTIAL (PRIMARY) HYPERTENSION Status: Chronic (2) Hypothyroid Code(s): E03.9 - HYPOTHYROIDISM, UNSPECIFIED Status: Chronic (3) Acute on chronic diastolic heart failure Code(s): I50.33 - ACUTE ON CHRONIC DIASTOLIC (CONGESTIVE) HEART FAILURE Status : Resolved (4) Acute respiratory failure with hypoxia Code(s): J96.01 - ACUTE RESPIRATORY FAILURE WITH HYPOXIA Status: Resolved (5) Hypokalemia Code(s): E87.6 - HYPOKALEMIA Status: Resolved - Plan Plan: Acute hypoxic respiratory failure - Intubated 07/20. extubated 07/27, satting approp. on RA - COVID neg. RVP neg. sepsis 05/29 UTI - MDR E. coli, sensitive to merem - merem for a total of 7 days DMII - SSI and hypoglycemia protocol - Accuchecks q6h Hypertension - Continue Isosorbide mononitrate, Clonidine, Carvedilol, Amlodipine, and Hydralazine. Diastolic HF - Continue medications above. - Strict I&Os, daily wts - diurese as needed Hypothyroidism - Continue Levothyroxine 25mcg Seizures - Continue phenytoin, lorazepam, keppra hx of anoxic brain injury - baseline mental status Code Status: Full GI ppx: Pepcid PCP: Marybeth dispo: continue to discuss goals of care, treat MDR UTI Addendum - Attending - Attending Attestation Date/Time: 07/28/19 4655 I personally evaluated the patient and discussed the management with Dr. Thornton. I agree with the History, Examination, Assessment and Plan documented above with any addition or exceptions noted below.
[2019-07-28 07:55] LABS: #Eosinphils 0.2 thou/uL (0.0-0.7); #Lymphocytes 2.2 thou/uL (1.20-3.40); #Monocytes 0.7 thou/uL (0.11-0.59); #Neutrophils 4.6 thou/uL (1.40-6.50); %Basophils 0.1 % (0.0-1.0); %Eosinophils 2.6 % (0.0-10.0); %Lymphocytes 28.1 % (21.0-51.0); %Monocytes 9.4 % (0.0-10.0); %Neutrophils 59.8 % (42.0-75.0); Hemoglobin 8.2 g/dL (12.0-16.0); Mean Corpuscular HGB CONC 32.7 g/dL (32.0-36.0); Mean Corpuscular Hemoglobin 27.5 pg (27.0-31.0); Mean Platelet Volume 11.5 fL (7.4-10.4); Platelet Count 250 thou/uL (130-400); Red Blood Cell (RBC) Count 2.97 mill/uL (4.20-5.40); White Blood Cell (WBC) Count 7.6 thou/uL (4.8-10.8)
[2019-07-28 08:30] LABS: Anion Gap 14 mmol/L (10-20); BUN (Urea Nitrogen) 25 mg/dL (9.8-20.1); Calc. Creatinine Clearance 104 mL/min (70-130); Calcium 8.6 mg/dL (7.8-10.44); Carbon Dioxide 22 mmol/L (23-31); Chloride 110 mmol/L (98-107); Estimated GFR-MDRD Greater than 90; Glucose 111 mg/dL (83-110); Potassium 3.6 mmol/L (3.5-5.1); Sodium 142 mmol/L (136-145)
[2019-07-28] MEDS: MEROPENEM 1 GM/50 ML 1 GM in Premix Bag 1 BAG IVPB SCH ×2 (09:12→16:38)
[2019-07-28] MEDS: levETIRAcetam 500 mg/5 ml Oral Solution PER TUBE SCH ×2 (09:13→21:06)
[2019-07-28] MEDS: Heparin 5,000 UNITS/ML VIAL SC SCH ×2 (09:13→21:03)
[2019-07-28] MEDS: Furosemide 20 MG/2 ML VIAL SLOW IVP SCH (09:14)
[2019-07-28] MEDS: Minoxidil 2.5 MG TAB PO SCH (09:14)
[2019-07-28] MEDS: Amlodipine 5 MG TAB PER TUBE SCH (09:14)
[2019-07-28] MEDS: Carvedilol 6.25 MG TAB PER TUBE SCH ×2 (09:17→16:00)
[2019-07-28] MEDS: Isosorbide Mononitrate (ER) 30 MG TAB PO SCH ×2 (09:17→21:06)
[2019-07-28] MEDS: Famotidine 20 MG TAB PER TUBE SCH ×2 (09:18→21:03)
[2019-07-28] MEDS: Ascorbic Acid 500 mg Chewable Tablet PER TUBE SCH (09:18)
[2019-07-28] MEDS: Fosphenytoin Sodium 100 MG in Sodium Chloride 0.9% 50 ML IVPB SCH ×3 (10:02→21:03)
--- NOTE | 2019-07-28 10:04 | PRG ---
DATE OF SERVICE: 07/28/2019 SUBJECTIVE: Neli Rothman was extubated yesterday. OBJECTIVE: VITAL SIGNS: Temperature 98, pulse 91, saturations 100% room air, blood pressure 176/70. GENERAL: She is in no distress. CHEST: Decreased breath sounds. Rhonchi. CARDIAC: Normal S1 and S2. No gallops. ABDOMEN: No masses. ASSESSMENT: Morbid obesity, respiratory failure, CVA. PLAN: Discharge lab. Continue PT, supportive care. Placement soon. Pulmonary Critical Care will follow at a distance. Job ID: [id number]
[2019-07-28] MEDS: Doxazosin 2 MG TAB PER TUBE SCH (21:03)
[2019-07-28] MEDS: Lorazepam 0.5 MG TAB PER TUBE PRN (21:36)
[2019-07-29] MEDS: MEROPENEM 1 GM/50 ML 1 GM in Premix Bag 1 BAG IVPB SCH ×2 (00:32→10:11)
[2019-07-29] MEDS: Lorazepam 0.5 MG TAB PER TUBE PRN (03:47)
[2019-07-29] MEDS: Levothyroxine Sodium 25 MCG TAB PER TUBE SCH (05:41)
[2019-07-29] MEDS: hydrALAZINE 25 MG TAB PO SCH ×2 (05:42→14:37)
[2019-07-29 05:51] LABS: #Basophils 0.1 thou/uL (0.0-0.2); #Eosinphils 0.2 thou/uL (0.0-0.7); #Lymphocytes 2.3 thou/uL (1.20-3.40); #Monocytes 0.6 thou/uL (0.11-0.59); #Neutrophils 3.9 thou/uL (1.40-6.50); %Eosinophils 2.5 % (0.0-10.0); %Lymphocytes 32.3 % (21.0-51.0); %Monocytes 8.7 % (0.0-10.0); %Neutrophils 55.6 % (42.0-75.0); Hemoglobin 8.9 g/dL (12.0-16.0); Mean Corpuscular HGB CONC 33.2 g/dL (32.0-36.0); Mean Corpuscular Hemoglobin 28.2 pg (27.0-31.0); Mean Corpuscular Volume 84.9 fL (78.0-98.0); Mean Platelet Volume 11.1 fL (7.4-10.4); Platelet Count 291 thou/uL (130-400); RBC Distribution Width 15.3 % (11.5-14.5); Red Blood Cell (RBC) Count 3.14 mill/uL (4.20-5.40)
[2019-07-29 06:11] LABS: Anion Gap 13 mmol/L (10-20); BUN (Urea Nitrogen) 24 mg/dL (9.8-20.1); Calc. Creatinine Clearance 104 mL/min (70-130); Calcium 8.9 mg/dL (7.8-10.44); Carbon Dioxide 23 mmol/L (23-31); Chloride 110 mmol/L (98-107); Estimated GFR-MDRD Greater than 90; Glucose 100 mg/dL (83-110); Sodium 142 mmol/L (136-145)
--- NOTE | 2019-07-29 07:25 | PDOC.FM ---
- Subjective Subjective: pt resting comfortably in bed, baseline mental status. no events overnight - Objective Vital Signs & Weight: Vital Signs (12 hours) Temp Pulse Resp BP BP Pulse Ox 07/29/19 05:42 93 145/82 H 07/29/19 04:25 99.1 F 93 18 145/82 H 92 L 07/28/19 23:06 98.5 F 92 17 176/74 H 99 07/28/19 21:03 100 188/74 H 07/28/19 19:33 98.8 F 100 18 188/74 H 92 L Weight Admit Weight 87.09 kg Weight 95.708 kg Most Recent Monitor Data Heart Rate from ECG 85 NIBP 158/66 NIBP BP-Mean 96 Respiration from ECG 15 SpO2 94 I&O: 07/28/19 07/29/19 07/30/19 06:59 06:59 06:59 Intake Total 1024 970 Output Total 1010 1650 Balance 14 -680 Result Diagrams: 07/29/19 05:39 07/29/19 05:39 Phys Exam - Physical Examination Constitutional: NAD HEENT: moist MMs Neck: no JVD Gastrointestinal: no distention Musculoskeletal: no edema Neurological: non-focal Psychiatric: normal affect Skin: no rash Dx/Plan (1) HTN (hypertension) Code(s): I10 - ESSENTIAL (PRIMARY) HYPERTENSION Status: Chronic (2) Hypothyroid Code(s): E03.9 - HYPOTHYROIDISM, UNSPECIFIED Status: Chronic (3) Acute on chronic diastolic heart failure Code(s): I50.33 - ACUTE ON CHRONIC DIASTOLIC (CONGESTIVE) HEART FAILURE Status : Resolved (4) Acute respiratory failure with hypoxia Code(s): J96.01 - ACUTE RESPIRATORY FAILURE WITH HYPOXIA Status: Resolved (5) Hypokalemia Code(s): E87.6 - HYPOKALEMIA Status: Resolved - Plan Plan: Acute hypoxic respiratory failure - Intubated 07/20. extubated 07/27, satting approp. on RA - COVID neg. RVP neg. sepsis 05/29 UTI, resolved - merem for a total of 7 days DMII - SSI and hypoglycemia protocol - Accuchecks q6h Hypertension - Continue Isosorbide mononitrate, Clonidine, Carvedilol, Amlodipine, and Hydralazine. Diastolic HF - Continue medications above. - Strict I&Os, daily wts - diurese as needed Hypothyroidism - Continue Levothyroxine 25mcg Seizures - Continue phenytoin, lorazepam, keppra hx of anoxic brain injury - baseline mental status Code Status: Full GI ppx: Pepcid PCP: Marybeth dispo: stable for dc to NH when available Addendum - Attending - Attending Attestation Date/Time: 07/29/19 2601 I personally evaluated the patient and discussed the management with Dr. Thornton. I agree with the History, Examination, Assessment and Plan documented above with any addition or exceptions noted below. Patient overall stable. She is doing adequately from a respiratory standpoint. Family continues to wait on decision for possible hospice care, but she is not requiring any intervention at the current time warranting hospitalization. Therefore, she will be discharged back to custodial for continued care and for family to have more time on hospice decision.
[2019-07-29 07:45] VITALS: TEMP 97.7
[2019-07-29] MEDS: Heparin 5,000 UNITS/ML VIAL SC SCH (08:49)
[2019-07-29] MEDS: Fosphenytoin Sodium 100 MG in Sodium Chloride 0.9% 50 ML IVPB SCH (08:49)
[2019-07-29] MEDS: Carvedilol 6.25 MG TAB PER TUBE SCH (08:49)
[2019-07-29] MEDS: Furosemide 20 MG/2 ML VIAL SLOW IVP SCH (08:54)
[2019-07-29] MEDS: Amlodipine 5 MG TAB PER TUBE SCH (08:54)
[2019-07-29] MEDS: Isosorbide Mononitrate (ER) 30 MG TAB PO SCH (08:54)
[2019-07-29] MEDS: Famotidine 20 MG TAB PER TUBE SCH (08:54)
[2019-07-29] MEDS: Ascorbic Acid 500 mg Chewable Tablet PER TUBE SCH (08:54)
[2019-07-29] MEDS: Minoxidil 2.5 MG TAB PO SCH (08:55)
[2019-07-29] MEDS: levETIRAcetam 500 mg/5 ml Oral Solution PER TUBE SCH (10:11)
[2019-07-29 14:42] VITALS: BP 171/82
[2019-07-29 15:11] VITALS: BMI 35.1
== END 2019-07-29 15:41 | DRG 870 ==
LOC: CCU 21:09 → T4-A 07-27 15:08
PROVIDERS: ADMIT Emergency Medicine; ATTEND Family Medicine
PROC: 5A1955Z Respiratory Ventilation, Greater than 96 Consecutive Hours (ICD-10-PCS; principal; 2019-07-21)
DX: A41.51 Sepsis due to Escherichia coli [E. coli] (principal); J96.01 Acute respiratory failure with hypoxia; I50.33 Acute on chronic diastolic (congestive) heart failure; I13.0 Hypertensive heart and chronic kidney disease with heart failure and stage 1 through stage 4 chronic kidney disease, or unspecified chronic kidney disease; N39.0 Urinary tract infection, site not specified; N18.4 Chronic kidney disease, stage 4 (severe); G40.909 Epilepsy, unspecified, not intractable, without status epilepticus; J44.9 Chronic obstructive pulmonary disease, unspecified; E03.9 Hypothyroidism, unspecified; E11.22 Type 2 diabetes mellitus with diabetic chronic kidney disease; E78.5 Hyperlipidemia, unspecified; F31.9 Bipolar disorder, unspecified; F20.9 Schizophrenia, unspecified; D64.9 Anemia, unspecified; R65.20 Severe sepsis without septic shock; E66.01 Morbid (severe) obesity due to excess calories; E87.6 Hypokalemia; Z86.73 Personal history of transient ischemic attack (TIA), and cerebral infarction without residual deficits; Z88.8 Allergy status to other drugs, medicaments and biological substances; I25.2 Old myocardial infarction; Z95.810 Presence of automatic (implantable) cardiac defibrillator; Z90.49 Acquired absence of other specified parts of digestive tract; Z90.710 Acquired absence of both cervix and uterus; Z93.1 Gastrostomy status; Z93.0 Tracheostomy status; Z87.891 Personal history of nicotine dependence; Z68.35 Body mass index [BMI] 35.0-35.9, adult
CPT/HCPCS: 36415; 36416; 36430; 71045; 80048; 80053; 82805; 83735; 84100; 84145; 84484; 85007; 85025; 85027; 86140; 86850; 86900; 86901; 87070; 87205; 87633; 87798; 94002; 94003; 94640; J0360; J0692; J1644; J1940; J2060; J2185; J2270; J2704; J3370; J3475; J3480; J3490; J7050; J7620; P9016; Q2009; S0028